=== PATIENT | male | born 1930 | race Caucasian/White ===

== ENCOUNTER 2016-10-09 12:50 | Inpatient (IN) | payer MEDICARE, OTHER ==
[2016-10-09] MEDS: Sodium Chloride 0.9% 10 ML Syringe FLUSH PRN (13:44)
--- NOTE | 2016-10-09 15:07 | EDM.PDOC ---
ED HISTORY OF PRESENT ILLNESS - General Chief Complaint: Respiratory Problem Stated Complaint: [facility] Time Seen by Provider: 10/09/16 13:00 Source of Information: Reports: Patient, EMS, RN notes reviewed - History of Present Illness INITIAL COMMENTS - FREE TEXT/NARRATIVE: 86 -year-old male brought in by ambulance for shortness of breath, generalized weakness, hypoxia, fever and diarrhea. He is a resident at [facility] and according to his son was feeling well when he last saw him 3 days ago. The symptoms apparently have just started over the past day or 2. Patient does not give a concise history but indicates that he has been having somewhat frequent watery diarrhea. [facility] staff told EMS that he had increased weakness today and when they checked his temp he had fever of around 101. He appeared short of breath sats were low and therefore ambulance was called. On arrival to ED patient is on oxygen and although noted to be tachypneic has no major complaints. He does admit that he has generalized weakness. He denies chest pain. He continues to be mildly short of breath. He states he has "occasional mostly nonproductive cough". He currently denies abdominal pain, nausea or vomiting. He denies dry mouth. No other complaints at this time. He does have history of multiple medical problems including COPD, CHF, prior pneumonia. - Related Data Allergies/ADRs: Allergies Allergy/AdvReac Type Severity Reaction Status Date / Time No Known Allergies Allergy Verified 10/09/16 13:02 Home Meds: Home Meds Acetaminophen [Tylenol] 650 mg PO BID 06/02/15 [History] Albuterol [Proventil Neb Soln] 2.5 mg NEB TID PRN 06/02/15 [History] Azasan. 100 mg PO BID 06/02/15 [History] Brimonidine [Alphagan P 0.15% Ophth Soln] 1 drop EYEBOTH BID 06/02/15 [History] Brinzolamide [Azopt] 1 drop EYEBOTH BID 06/02/15 [History] Budesonide/Formoterol [Symbicort 160-4.5 MCG] 2 puff IH BID 06/02/15 [History] Folic Acid 1 mg PO BID 06/02/15 [History] Furosemide [Lasix] 80 mg PO BID 06/02/15 [History] Insulin Detemir [Levemir Flextouch] 8 unit SQ BEDTIME 06/02/15 [History] Ipratropium/Albuterol Sulfate [Iprat-Albut 0.5-3(2.5) MG/3 ML] 3 ml IH Q8H PRN 06/02/15 [History] Levothyroxine 75 mcg PO ACBREAKFAST 06/02/15 [History] Metolazone 2.5 mg PO MOTH 06/02/15 [History] Omeprazole [Prilosec] 20 mg PO DAILY 06/02/15 [History] Potassium Chloride [Klor-Con M20] 20 meq PO TID 06/02/15 [History] Rosuvastatin Calcium [Crestor] 5 mg PO BEDTIME 06/02/15 [History] Terazosin [Hytrin] 10 mg PO BEDTIME 06/02/15 [History] Tiotropium [Spiriva HandiHaler] 2 inh INH DAILY 06/02/15 [History] Citalopram Hydrobromide [Celexa] 20 mg PO DAILY #30 tab 06/09/15 [Rx] Digoxin [Lanoxin] 125 mcg PO DAILY #30 tablet 06/09/15 [Rx] Aspirin 81 mg PO DAILY 10/09/16 [History] Donepezil [Aricept] 5 mg PO DAILY 10/09/16 [History] Metoprolol Succinate [Toprol XL] 25 mg PO DAILY 10/09/16 [History] Sennosides [Senna] 8.6 mg PO DAILY PRN 10/09/16 [History] Warfarin Sodium [Coumadin] 7.5 mg PO MOWEFR 10/09/16 [History] Warfarin [Coumadin] 5 mg PO TUTHSA 10/09/16 [History] Past Medical History HEENT History: Reports: Glaucoma Cardiovascular History: Reports: Afib, Heart Failure, High cholesterol, Hypertension Respiratory History: Reports: COPD, Pneumonia, recurrent, Other (see below) Other Respiratory History: pulmonary edema Gastrointestinal History: Reports: GERD, Other (see below) Other Gastrointestinal History: ulverative colitis, dysphagia Genitourinary History: Reports: Prostate disorder, Renal disease Other Genitourinary History: stage3 chronic kidney disease Other Musculoskeletal History: Difficulty walking with muscle weakness. Other Neuro History: possible early onset dementia vs. alzheimers Psychiatric History: Reports: Depression Other Psychiatric History: pt has anxiety at times about not returning home to live. Endocrine/Metabolic History: Reports: Diabetes, type II, Hypothyroidism - Past Surgical History GI Surgical History: Reports: Colonoscopy, EGD Social & Family History - Tobacco Use Smoking Status *Q: Former Smoker Years of Tobacco use: 30 Packs/Tins Daily: 2 Used Tobacco, but Quit: Yes Month Tobacco Last Used: 45 yers ago Second Hand Smoke Exposure: No - Caffeine Use Caffeine Use: Reports: None - Alcohol Use Days Per Week of Alcohol Use: 7 Number of Drinks Per Day: 1 Total Drinks Per Week: 7 - Recreational Drug Use Recreational Drug Use: No - Living Situation & Occupation Living situation: Reports: single, , extended care facility 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 Denies: diaphoresis HEENT: Denies: Sinus problem, Throat pain Respiratory: Reports: shortness of breath, wheezing, cough, sputum (scant) Cardiovascular: Reports: Lightheadedness. Denies: Chest pain GI/Abdominal: Reports: Diarrhea (frequent for at least the last day or 2). Denies: Abdominal pain, Nausea, Vomiting Musculoskeletal: Denies: joint pain Skin: Denies: rash, change in color Neurological: Reports: dizziness, difficulty walking, weakness (generalized). Denies: numbness, tingling, trouble speaking ED EXAM, GENERAL - Physical Exam Exam: See Below General Appearance: alert, other (mild tachypnea) Eye Exam: bilateral eye: PERRL Nose: normal inspection Throat/Mouth: Normal inspection, Normal oropharynx Head: atraumatic. No: facial swelling Neck: supple, full range of motion, other (no JVD) Respiratory/Chest: respiratory distress (moderate tachypnea), rhonchi (mild bilateral bases), wheezing (mild expiratory). No: retractions Cardiovascular: irregularly irregular GI/Abdominal: soft, non tender. No: distended, guarding Back Exam: No: CVA tenderness (L), CVA tenderness (R) Extremities: pedal edema (trace bilateral). No: leg pain, increased warmth, redness Neurological: alert, no motor/sensory deficits Skin Exam: Warm, Dry, Normal color, No rash EKG INTERPRETATION EKG Date: 10/09/16 Rhythm: a-fib Rate (beats/min): 121 P-wave: absent QRS: RBBB Course - Vital Signs Last Recorded V/S: Last Vital Signs Temp 99.1 F 10/09/16 12:59 Pulse 140 H 10/09/16 12:59 Resp 30 H 10/09/16 12:59 BP 86/46 L 10/09/16 13:00 Pulse Ox 93 L 10/09/16 15:16 - Orders/Labs/Meds Orders: Active Orders 24 hr Category Date Time Status EKG 12 Lead [EKG Documentation Completion] [RC] STAT Care 10/09/16 13:23 Active Oxygen Therapy [RC] ASDIRECTED Care 10/09/16 13:24 Active RT Aerosol Therapy [RC] ASDIRECTED Care 10/09/16 15:09 Active Chest 1V Frontal [CR] Stat Exams 10/09/16 13:23 Taken CULTURE BLOOD [BC] Stat Lab 10/09/16 13:50 Received CULTURE BLOOD [BC] Stat Lab 10/09/16 14:30 Received UA W/MICROSCOPIC [URIN] Stat Lab 10/09/16 15:07 Uncollected Sodium Chloride 0.9% [Normal Saline] 1,000 ml Med 10/09/16 15:15 Active IV ONETIME Sodium Chloride 0.9% [Saline Flush] Med 10/09/16 13:21 Active 10 ml FLUSH ASDIRECTED PRN Peripheral IV Insertion Adult [OM.PC] Stat Oth 10/09/16 13:24 Ordered Medication Orders Aspirin (Aspirin) 81 mg PO DAILY [facility] Budesonide/Formoterol Fumarate (Symbicort 160-4.5 Mcg) 0 gm INH BID [facility] Citalopram Hydrobromide (Celexa) 20 mg PO DAILY [facility] Digoxin (Lanoxin) 125 mcg PO DAILY [facility] Donepezil HCl (Aricept) 5 mg PO DAILY [facility] Sodium Chloride (Normal Saline) 1,000 mls @ 999 mls/hr IV ONETIME [facility] Last Admin: 10/09/16 15:20 Dose: 999 mls/hr Levofloxacin/Dextrose 750 mg/ (Premix) 150 mls @ 100 mls/hr IV Q48H [facility] Piperacillin Sod/Tazobactam (Sod 4.5 gm/ Sodium Chloride) 100 mls @ 25 mls/hr IV Q8H [facility] Levothyroxine Sodium (Levothyroxine) 75 mcg PO ACBREAKFAST [facility] Metoprolol Succinate (Toprol Xl) 25 mg PO DAILY [facility] Non-Formulary Medication (Brinzolamide) 1 drop EYEBOTH BID [facility] Non-Formulary Medication (Brimonidine) 1 drop EYEBOTH BID [facility] Pantoprazole Sodium (Protonix) 40 mg PO DAILY [facility] Potassium Chloride (Klor-Con M20) 20 meq PO TID [facility] Rosuvastatin Calcium (Crestor) 5 mg PO BEDTIME [facility] Senna (Senna) 8.6 mg PO DAILY PRN PRN Reason: Constipation Sodium Chloride (Saline Flush) 10 ml FLUSH ASDIRECTED PRN PRN Reason: Keep Vein Open Last Admin: 10/09/16 13:44 Dose: 10 ml Terazosin HCl (Hytrin) 10 mg PO BEDTIME [facility] Tiotropium [place] (Spiriva Handihaler) 0 mcg INH DAILY [facility] Warfarin Sodium (Coumadin) 7.5 mg PO MOWEFR [facility] Warfarin Sodium (Coumadin) 5 mg PO TuThSa@1800 [facility] Labs: Laboratory Tests 10/09/16 10/09/16 10/09/16 Range/Units 13:50 13:50 13:50 WBC 26.38 H (4.23-9.07) K/mm3 RBC 4.04 L (4.63-6.08) M/mm3 Hgb 13.5 L (13.7-17.5) gm/L Hct 40.5 (40.1-51.0) % MCV 100.2 H (79.0-92.2) fl MCH 33.4 H (25.7-32.2) pg MCHC 33.3 (32.2-35.5) g/dl RDW Std Deviation 59.5 H (35.1-43.9) fL Plt Count 180 (163-337) K/mm3 MPV 10.0 (9.4-12.3) fl Neut % (Auto) 90.6 H (34.0-67.9) % Lymph % (Auto) 3.4 L (21.8-53.1) % [place] % (Auto) 4.4 L (5.3-12.2) % Eos % (Auto) 0 L (0.8-7.0) Baso % (Auto) 0.2 (0.1-1.2) % Neut # 23.92 H (1.78-5.38) K/mm3 Lymph # 0.89 L (1.32-3.57) K/mm3 [place] # 1.15 H (0.30-0.82) K/mm3 Eos # 0.01 L (0.04-0.54) K/mm3 Baso # 0.04 (0.01-0.08) K/mm3 Manual Slide Review Abnormal smear PT (8.0-13.0) SECONDS INR Sodium 135 L (136-145) mEq/L Potassium 3.7 (3.5-5.1) mEq/L Chloride 96 L (98-107) mEq/L Carbon Dioxide 27 (21-32) mEq/L Anion Gap 15.7 H (5-15) BUN 63 H (7-18) mg/dL Creatinine 2.9 H (0.7-1.3) mg/dL Est Cr Clr Drug Dosing 18.53 mL/min Estimated GFR (MDRD) 21 (>60) mL/min BUN/Creatinine Ratio 21.7 H (14-18) Glucose 203 H (83-115) mg/dL Lactic Acid (0.4-2.0) mmol/L Calcium 8.6 (8.5-10.1) mg/dL Total Bilirubin 1.4 H (0.2-1.0) mg/dL AST 30 (15-37) U/L ALT 16 (16-63) U/L Alkaline Phosphatase 49 (46-116) U/L Troponin I (0.00-0.056) ng/mL C-Reactive Protein 35.6 H* (<1.0) mg/dL B-Natriuretic Peptide 338 H (0-100) pg/mL Total Protein 6.3 L (6.4-8.2) g/dl Albumin 2.6 L (3.4-5.0) g/dl Globulin 3.7 gm/dL Albumin/Globulin Ratio 0.7 L (1-2) 10/09/16 10/09/16 10/09/16 Range/Units 13:50 13:50 13:50 WBC (4.23-9.07) K/mm3 RBC (4.63-6.08) M/mm3 Hgb (13.7-17.5) gm/L Hct (40.1-51.0) % MCV (79.0-92.2) fl MCH (25.7-32.2) pg MCHC (32.2-35.5) g/dl RDW Std Deviation (35.1-43.9) fL Plt Count (163-337) K/mm3 MPV (9.4-12.3) fl Neut % (Auto) (34.0-67.9) % Lymph % (Auto) (21.8-53.1) % [place] % (Auto) (5.3-12.2) % Eos % (Auto) (0.8-7.0) Baso % (Auto) (0.1-1.2) % Neut # (1.78-5.38) K/mm3 Lymph # (1.32-3.57) K/mm3 [place] # (0.30-0.82) K/mm3 Eos # (0.04-0.54) K/mm3 Baso # (0.01-0.08) K/mm3 Manual Slide Review PT 32.7 H (8.0-13.0) SECONDS INR 2.98 Sodium (136-145) mEq/L Potassium (3.5-5.1) mEq/L Chloride (98-107) mEq/L Carbon Dioxide (21-32) mEq/L Anion Gap (5-15) BUN (7-18) mg/dL Creatinine (0.7-1.3) mg/dL Est Cr Clr Drug Dosing mL/min Estimated GFR (MDRD) (>60) mL/min BUN/Creatinine Ratio (14-18) Glucose (83-115) mg/dL Lactic Acid 4.5 H (0.4-2.0) mmol/L Calcium (8.5-10.1) mg/dL Total Bilirubin (0.2-1.0) mg/dL AST (15-37) U/L ALT (16-63) U/L Alkaline Phosphatase (46-116) U/L Troponin I 0.157 H* (0.00-0.056) ng/mL C-Reactive Protein (<1.0) mg/dL B-Natriuretic Peptide (0-100) pg/mL Total Protein (6.4-8.2) g/dl Albumin (3.4-5.0) g/dl Globulin gm/dL Albumin/Globulin Ratio (1-2) Meds: Medications Generic Name Dose Route Start Last Admin Trade Name Freq PRN Reason Stop Dose Admin Aspirin 81 mg 10/10/16 09:00 Aspirin PO DAILY [facility] Budesonide/Formoterol Fumarate 0 gm 10/09/16 21:00 Symbicort 160-4.5 Mcg INH BID [facility] Citalopram Hydrobromide 20 mg 10/10/16 09:00 Celexa PO DAILY [facility] Digoxin 125 mcg 10/10/16 09:00 Lanoxin PO DAILY [facility] Donepezil HCl 5 mg 10/10/16 09:00 Aricept PO DAILY [facility] Sodium Chloride 1,000 mls @ 999 mls/hr 10/09/16 15:15 10/09/16 15:20 Normal Saline IV 999 mls/hr ONETIME [facility] Administration Levofloxacin/Dextrose 750 mg/ 150 mls @ 100 mls/hr 10/11/16 15:00 Premix IV Q48H [facility] Piperacillin Sod/Tazobactam 100 mls @ 25 mls/hr 10/09/16 19:45 Sod 4.5 gm/ Sodium Chloride IV Q8H [facility] Levothyroxine Sodium 75 mcg 10/10/16 06:00 Levothyroxine PO ACBREAKFAST [facility] Metoprolol Succinate 25 mg 10/10/16 09:00 Toprol Xl PO DAILY [facility] Non-Formulary Medication 1 drop 10/09/16 21:00 Brinzolamide EYEBOTH BID [facility] Non-Formulary Medication 1 drop 10/09/16 21:00 Brimonidine EYEBOTH BID [facility] Pantoprazole Sodium 40 mg 10/10/16 09:00 Protonix PO DAILY [facility] Potassium Chloride 20 meq 10/09/16 21:00 Klor-Con M20 PO TID [facility] Rosuvastatin Calcium 5 mg 10/09/16 21:00 Crestor PO BEDTIME [facility] Senna 8.6 mg 10/09/16 19:27 Senna PO DAILY PRN Constipation Sodium Chloride 10 ml 10/09/16 13:21 10/09/16 13:44 Saline Flush FLUSH 10 ml ASDIRECTED PRN Administration Keep Vein Open Terazosin HCl 10 mg 10/09/16 21:00 Hytrin PO BEDTIME [facility] Tiotropium [place] 0 mcg 10/10/16 09:00 Spiriva Handihaler INH DAILY [facility] Warfarin Sodium 7.5 mg 10/09/16 19:30 Coumadin PO MOWEFR [facility] Warfarin Sodium 5 mg 10/10/16 18:00 Coumadin PO TuThSa@1800 [facility] Discontinued Medications Generic Name Dose Route Start Last Admin Trade Name Dior PRN Reason Stop Dose Admin Albuterol/Ipratropium 3 ml 10/09/16 15:09 10/09/16 15:15 Duoneb 3.0-0.5 Mg/3 Ml NEB 10/09/16 15:10 3 ml ONETIME ONE Administration Levofloxacin/Dextrose 750 mg/ 150 mls @ 100 mls/hr 10/09/16 15:10 10/09/16 15 :20 Premix IV 10/09/16 16:39 100 mls/hr ONETIME ONE Administration Piperacillin Sod/Tazobactam 100 mls @ 200 mls/hr 10/09/16 15:51 10/09/16 19: 29 Sod 4.5 gm/ Sodium Chloride IV 10/09/16 16:20 200 mls/hr ONETIME ONE Administration Piperacillin Sod/Tazobactam 100 mls @ 200 mls/hr 10/09/16 19:00 10/09/16 19: 31 Sod 4.5 gm/ Sodium Chloride IV 10/09/16 19:29 Not Given ONETIME ONE - Re-Assessments/Exams Free Text/Narrative Re-Assessment/Exam: 10/09/16 14:24. patient did need sepsis alert criteria on arrival. Blood cultures x2 were ordered. Blood pressure did run in the 90s initially with more recent reading of 103/52. He continues to have no chest pain. With oxygen he does not feel short of breath although he does continue to be tachypneic. I have concern for early pneumonia. he does have history of previous healthcare associated pneumonia. As noted he does come from an assisted living center. I do not see definite infiltrate on his chest x-ray. I am awaiting radiologist report on that. Blood count markedly elevated at 26,000, C-reactive protein is still pending. BUN and creatinine are elevated as well as lactic acid at 4.5. See remainder of labs for details. We have started IV Levaquin and will follow that with IV Zosyn 4.5 g IV. He will be admitted for further treatment. troponin has come back elevated at 0.15. I do not see a previous documented troponin for comparison. He continues to have no chest pain while here in the ED. His underlying history of advanced COPD and prior histories of pneumonia put him at increased risk for morbidity and mortality. He is DO NOT RESUSCITATE stat Departure - Departure Time of Disposition: 16:01 Disposition: Admitted As Inpatient 65 Condition: serious Clinical Impression: HCAP (healthcare-associated pneumonia), Hypoxia, Weakness Hypotension Qualifiers: Hypotension type: unspecified hypotension type Qualified Code(s): I95.9 - Hypotension, unspecified Atrial fibrillation Qualifiers: Atrial fibrillation type: chronic Qualified Code(s): I48.2 - Chronic atrial fibrillation ED Communication - Discussed Case With (1) Discussed Case With (1): Admitting Provider (Dr. Navarro, decision to admit at about 15:50.) - My Orders Last 24 Hours: My Active Orders 10/09/16 13:21 Sodium Chloride 0.9% [Saline Flush] 10 ml FLUSH ASDIRECTED PRN 10/09/16 13:23 EKG 12 Lead [EKG Documentation Completion] [RC] STAT Chest 1V Frontal [CR] Stat 10/09/16 13:24 Oxygen Therapy [RC] ASDIRECTED Peripheral IV Insertion Adult [OM.PC] Stat 10/09/16 13:50 CULTURE BLOOD [BC] Stat 10/09/16 14:30 CULTURE BLOOD [BC] Stat 10/09/16 15:07 UA W/MICROSCOPIC [URIN] Stat 10/09/16 15:09 RT Aerosol Therapy [RC] ASDIRECTED 10/09/16 15:15 Sodium Chloride 0.9% [Normal Saline] 1,000 ml IV ONETIME - Assessment/Plan Last 24 Hours: My Active Orders 10/09/16 13:21 Sodium Chloride 0.9% [Saline Flush] 10 ml FLUSH ASDIRECTED PRN 10/09/16 13:23 EKG 12 Lead [EKG Documentation Completion] [RC] STAT Chest 1V Frontal [CR] Stat 10/09/16 13:24 Oxygen Therapy [RC] ASDIRECTED Peripheral IV Insertion Adult [OM.PC] Stat 10/09/16 13:50 CULTURE BLOOD [BC] Stat 10/09/16 14:30 CULTURE BLOOD [BC] Stat 10/09/16 15:07 UA W/MICROSCOPIC [URIN] Stat 10/09/16 15:09 RT Aerosol Therapy [RC] ASDIRECTED 10/09/16 15:15 Sodium Chloride 0.9% [Normal Saline] 1,000 ml IV ONETIME
[2016-10-09] MEDS ORDERED: Albuterol/Ipratropium 3.0-0.5 MG/3 ML Neb Soln NEB ONE (15:09)
[2016-10-09] MEDS ORDERED: Levofloxacin/Dextrose 5%-Water 750 MG in Premix Bag 1 BAG IV ONE (15:10)
[2016-10-09] MEDS ORDERED: Sodium Chloride 0.9% 1,000 ML IV SCH (15:15)
[2016-10-09] MEDS ORDERED: Piperacillin/Tazobactam 4.5 GM in Sodium Chloride 0.9% 100 ML IV ONE ×2 (15:51→19:00)
[2016-10-09] MEDS ORDERED: Sennosides 8.6 MG Tab PO PRN (19:27)
--- NOTE | 2016-10-09 19:45 | PCM.HP ---
H&P History of Present Illness - General Date of Service: 10/09/16 Admit Problem/Dx: Admission Diagnosis/Problem Admission Diagnosis/Problem Pneumonia Source of Information: Patient, Provider History Limitations: Reports: No limitations - History of Present Illness Initial Comments - Free Text/Narative: 86 year old [place] resident presented with SOB at rest. Has a history of CHF as well as COPD. Has been febrile with a temp of 101F on the day of admission. Additionally has had frequent loose stool. The apparent timeframe for the change in well being appears to be 72 houtrs [employer]. The change in mental status with mild confusion as well as elevated temp subsequently resulted in an evaluation at [facility]. The patient has elevated WBCs, and abnormal inflamatory markers, will be admitted for CAP as well as A fib with RVR, a bed will be obtained in the ICU. Onset of Symptoms: Reports: unknown/unsure Duration of Symptoms: Reports: Day(s):, Getting worse Location: Reports: chest, generalized. Denies: lower extremity, left Severity: moderate Improves with: Reports: Medication Associated Symptoms: Reports: confusion, chest pain, cough, fever/chills, loss of appetite, malaise - Related Data Allergies/Adverse Reactions: Allergies Allergy/AdvReac Type Severity Reaction Status Date / Time No Known Allergies Allergy Verified 10/09/16 13:02 Home Medications: Home Meds Acetaminophen [Tylenol] 650 mg PO BID 06/02/15 [History] Albuterol [Proventil Neb Soln] 2.5 mg NEB TID PRN 06/02/15 [History] Brimonidine [Alphagan P 0.15% Ophth Soln] 1 drop EYEBOTH BID 06/02/15 [History] Brinzolamide [Azopt] 1 drop EYEBOTH BID 06/02/15 [History] Budesonide/Formoterol [Symbicort 160-4.5 MCG] 2 puff IH BID 06/02/15 [History] Folic Acid 1 mg PO BID 06/02/15 [History] Furosemide [Lasix] 80 mg PO BID 06/02/15 [History] Insulin Detemir [Levemir Flextouch] 8 unit SQ BEDTIME 06/02/15 [History] Levothyroxine 75 mcg PO ACBREAKFAST 06/02/15 [History] Omeprazole [Prilosec] 20 mg PO DAILY 06/02/15 [History] Potassium Chloride [Klor-Con M20] 20 meq PO TID 06/02/15 [History] Rosuvastatin Calcium [Crestor] 5 mg PO BEDTIME 06/02/15 [History] Terazosin [Hytrin] 10 mg PO BEDTIME 06/02/15 [History] Tiotropium [Spiriva HandiHaler] 2 inh INH DAILY 06/02/15 [History] Citalopram Hydrobromide [Celexa] 20 mg PO DAILY #30 tab 06/09/15 [Rx] Digoxin [Lanoxin] 125 mcg PO DAILY #30 tablet 06/09/15 [Rx] Aspirin 81 mg PO DAILY 10/09/16 [History] Donepezil [Aricept] 5 mg PO DAILY 10/09/16 [History] Metoprolol Succinate [Toprol XL] 25 mg PO DAILY 10/09/16 [History] Sennosides [Senna] 8.6 mg PO DAILY PRN 10/09/16 [History] Warfarin Sodium [Coumadin] 7.5 mg PO MOWEFR 10/09/16 [History] Warfarin [Coumadin] 5 mg PO SUTUTHSA 10/09/16 [History] Metolazone 5 mg PO MOTH 10/10/16 [History] azaTHIOprine [Azasan] 100 mg PO BID 10/10/16 [History] Past Medical History HEENT History: Reports: Glaucoma, Hard of hearing Cardiovascular History: Reports: Afib, Heart Failure, High cholesterol, Hypertension Respiratory History: Reports: COPD, Pneumonia, recurrent, SOB, Other (see below) Other Respiratory History: pulmonary edema Gastrointestinal History: Reports: GERD, Other (see below) Other Gastrointestinal History: ulverative colitis, dysphagia Genitourinary History: Reports: Chronic renal insuffiency, Prostate disorder, Renal disease, Retention, urinary, Urinary incontinence Other Genitourinary History: stage3 chronic kidney disease Musculoskeletal History: Reports: Arthritis Other Musculoskeletal History: Difficulty walking with muscle weakness. Neurological History: Reports: Alzheimers disease, Other (see below) Other Neuro History: possible early onset dementia vs. alzheimers Psychiatric History: Reports: Depression Other Psychiatric History: pt has anxiety at times about not returning home to live. Endocrine/Metabolic History: Reports: Diabetes, type II, Hypothyroidism - Past Surgical History GI Surgical History: Reports: Colonoscopy, EGD Social & Family History - Tobacco Use Smoking Status *Q: Former Smoker Years of Tobacco use: 30 Packs/Tins Daily: 2 Used Tobacco, but Quit: Yes Month Tobacco Last Used: 45 yers ago Second Hand Smoke Exposure: No - Caffeine Use Caffeine Use: Reports: Coffee - Alcohol Use Days Per Week of Alcohol Use: 7 Number of Drinks Per Day: 1 Total Drinks Per Week: 7 - Recreational Drug Use Recreational Drug Use: No - Living Situation & Occupation Living situation: Reports: single, , extended care facility 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) H&P Review of Systems - Review of Systems: Review Of Systems: See Below General: Reports: fever, chills, malaise, weakness, fatigue, decreased appetite HEENT: Reports: no symptoms Pulmonary: Reports: shortness of breath Cardiovascular: Reports: chest pain, lightheadedness Gastrointestinal: Reports: No symptoms Genitourinary: Reports: no symptoms Musculoskeletal: Reports: no symptoms Skin: Reports: no symptoms Psychiatric: Reports: no symptoms Neurological: Reports: no symptoms Hematologic/Lymphatic: Reports: no symptoms Immunologic: Reports: no symptoms Exam - Exam Exam: See Below - Vital Signs Vital Signs: Last Vital Signs Temp 37.3 C 10/09/16 12:59 Pulse 140 H 10/09/16 12:59 Resp 30 H 10/09/16 12:59 BP 86/46 L 10/09/16 13:00 Pulse Ox 93 L 10/09/16 15:16 Weight: 90.764 kg - Exam Quality Assessment: supplemental oxygen, DVT prophylaxis General: alert, oriented, cooperative, mild distress HEENT: Conjunctiva clear, EACs clear, EOMI, Mucosa moist & pink, Nares patent, Pupils equal, Pupils reactive Neck: trachea midline Lungs: Decreased breath sounds, Rhonchi, Wheezing Cardiovascular: regular rate, irregular rhythm Abdomen: normal bowel sounds, soft (Male) Exam: Deferred Rectal (Males) Exam: Deferred Back Exam: normal inspection Extremities: normal pulses Skin: warm Neurological: cranial nerves intact, normal speech Neuro Extensive - Mental Status: alert, oriented x3, normal mood/affect Neuro Extensive - Motor, Sensory, Reflexes: CN II-XII intact Psychiatric: alert, normal affect, normal mood - Patient Data Result Diagrams: 10/10/16 05:23 10/10/16 05:23 *Q Meaningful Use (ADM) - VTE *Q VTE Criteria *Q: - Stroke *Q Stroke Criteria *Q: - AMI *Q AMI Criteria *Q: Problem List Initiated/Reviewed/Updated: Yes Orders Last 24hrs: Active Orders 24 hr Category Date Time Status Bedrest Bathroom Privileges [RC] ASDIRECTED Care 10/09/16 19:37 Active Vital Signs [RC] PER UNIT ROUTINE Care 10/09/16 19:37 Active Consistent Carbohydrate Diet [DIET] Diet 10/09/16 Dinner Active CXR [Chest 2V] [CR] Routine Exams 10/11/16 21:00 Ordered BASIC METABOLIC PANEL,BMP [CHEM] DAILY Lab 10/10/16 05:00 Ordered BASIC METABOLIC PANEL,BMP [CHEM] DAILY Lab 10/11/16 05:00 Ordered BASIC METABOLIC PANEL,BMP [CHEM] DAILY Lab 10/12/16 05:00 Ordered CBC WITH AUTO DIFF [HEME] DAILY Lab 10/10/16 05:00 Ordered CBC WITH AUTO DIFF [HEME] DAILY Lab 10/11/16 05:00 Ordered CBC WITH AUTO DIFF [HEME] DAILY Lab 10/12/16 05:00 Ordered INFLUENZA A+B AG SCREEN [RM] Routine Lab 10/09/16 21:00 Uncollected MAGNESIUM [CHEM] DAILY Lab 10/10/16 05:00 Ordered MAGNESIUM [CHEM] DAILY Lab 10/11/16 05:00 Ordered MAGNESIUM [CHEM] DAILY Lab 10/12/16 05:00 Ordered MYCOPLASMA PNEUMONIAE IGM AB [CHEM] Routine Lab 10/09/16 21:00 Ordered STREP PNEUMONIAE ANTIGEN [MREF] Routine Lab 10/09/16 21:00 Uncollected Aspirin Med 10/10/16 09:00 Active 81 mg PO DAILY Brimonidine Med 10/09/16 21:00 Ordered 1 drop EYEBOTH BID Brinzolamide Med 10/09/16 21:00 Ordered 1 drop EYEBOTH BID Budesonide/Formoterol [Symbicort 160-4.5 MCG] Med 10/09/16 21:00 Active 0 gm INH BID Citalopram [Celexa] Med 10/10/16 09:00 Active 20 mg PO DAILY Digoxin [Lanoxin] Med 10/10/16 09:00 Active 125 mcg PO DAILY Donepezil Med 10/10/16 09:00 Ordered 5 mg PO DAILY Levofloxacin/Dextrose 5%-Water [Levaquin in D5W 750 MG/ Med 10/09/16 19:45 Ordered 150 ML] 750 mg Premix Bag 1 bag IV Q48H Levothyroxine Med 10/10/16 06:00 Active 75 mcg PO ACBREAKFAST Metoprolol Succinate [Toprol XL] Med 10/10/16 09:00 Active 25 mg PO DAILY Omeprazole Med 10/10/16 09:00 Ordered 20 mg PO DAILY Piperacillin/Tazobactam [Zosyn] 4.5 gm Med 10/09/16 19:45 Ordered Sodium Chloride 0.9% [Normal Saline] 100 ml IV Q8H Potassium Chloride [Klor-Con M20] Med 10/09/16 21:00 Active 20 meq PO TID Rosuvastatin [Crestor] Med 10/09/16 21:00 Active 5 mg PO BEDTIME Sennosides [Senna] Med 10/09/16 19:27 Active 8.6 mg PO DAILY PRN Terazosin [Hytrin] Med 10/09/16 21:00 Active 10 mg PO BEDTIME Tiotropium [Spiriva HandiHaler] Med 10/10/16 09:00 Ordered DOSE mcg INH DAILY Warfarin [Coumadin] Med 10/10/16 18:00 Active 5 mg PO TuThSa@1800 Warfarin [Coumadin] Med 10/09/16 19:30 Pending 7.5 mg PO MOWEFR Medication Orders Aspirin (Aspirin) 81 mg PO DAILY [facility] Budesonide/Formoterol Fumarate (Symbicort 160-4.5 Mcg) 0 gm INH BID [facility] Citalopram Hydrobromide (Celexa) 20 mg PO DAILY [facility] Digoxin (Lanoxin) 125 mcg PO DAILY [facility] Sodium Chloride (Normal Saline) 1,000 mls @ 999 mls/hr IV ONETIME [facility] Last Admin: 10/09/16 15:20 Dose: 999 mls/hr Levofloxacin/Dextrose 750 mg/ (Premix) 150 mls @ 100 mls/hr IV Q48H [facility] Piperacillin Sod/Tazobactam (Sod 4.5 gm/ Sodium Chloride) 100 mls @ 25 mls/hr IV Q8H [facility] Levothyroxine Sodium (Levothyroxine) 75 mcg PO ACBREAKFAST [facility] Metoprolol Succinate (Toprol Xl) 25 mg PO DAILY [facility] Non-Formulary Medication (Omeprazole) 20 mg PO DAILY [facility] Non-Formulary Medication (Donepezil) 5 mg PO DAILY [facility] Non-Formulary Medication (Brinzolamide) 1 drop EYEBOTH BID [facility] Non-Formulary Medication (Brimonidine) 1 drop EYEBOTH BID [facility] Potassium Chloride (Klor-Con M20) 20 meq PO TID [facility] Rosuvastatin Calcium (Crestor) 5 mg PO BEDTIME [facility] Senna (Senna) 8.6 mg PO DAILY PRN PRN Reason: Constipation Sodium Chloride (Saline Flush) 10 ml FLUSH ASDIRECTED PRN PRN Reason: Keep Vein Open Last Admin: 10/09/16 13:44 Dose: 10 ml Terazosin HCl (Hytrin) 10 mg PO BEDTIME [facility] Tiotropium [place] (Spiriva Handihaler) mcg INH DAILY [facility] Warfarin Sodium (Coumadin) 7.5 mg PO MOWEFR [facility] Warfarin Sodium (Coumadin) 5 mg PO TuThSa@1800 [facility] Assessment/Plan Comment:: Impression: CAP with history of COPD COPD exacerbation History of CHF, no signs of heart failure Afib presents with RVR, started on cardizem drip Chronic HTN Hyperlipidemia GERD BPH CKD, stage II Diabetes mellitus, type II Dementia Depression Hypothyroidism Plan: Home meds, adjust coumadin for DI Adjust rate control meds IV ATBs NEBS Keep O2 sats>92% GI/DVT prpohylaxis
[2016-10-09] MEDS: Rosuvastatin 10 MG Tab PO SCH (20:25)
[2016-10-09] MEDS: Potassium Chloride 20 MEQ Tab.ER PO SCH (20:25)
[2016-10-09] MEDS: Terazosin 5 MG Cap PO SCH (20:30)
[2016-10-09] MEDS ORDERED: BRIMONIDINE 0.15% EYEBOTH SCH (21:00)
[2016-10-09] MEDS ORDERED: Budesonide/Formoterol 160-4.5 MCG/Puff 6 GM Inhaler INH SCH (21:00)
[2016-10-09] MEDS ORDERED: [UNRECOGNIZED DRUG - REMARK] EYEBOTH SCH (21:00)
[2016-10-09] MEDS: Formoterol/Mometasone 200-5 MCG 8.8 GM Inhaler IH SCH (21:23)
[2016-10-10] MEDS: Formoterol/Mometasone 200-5 MCG 8.8 GM Inhaler IH SCH ×2 (06:09→20:42)
[2016-10-10] MEDS: Levothyroxine 75 MCG Tab PO SCH (06:30)
[2016-10-10] MEDS: Piperacillin/Tazobactam 4.5 GM in Sodium Chloride 0.9% 100 ML IV SCH ×3 (08:15→23:16)
[2016-10-10] MEDS: Sodium Chloride 0.9% 10 ML Syringe FLUSH PRN (08:15)
[2016-10-10] MEDS: Digoxin 125 MCG Tab PO SCH (08:20)
[2016-10-10] MEDS: Potassium Chloride 20 MEQ Tab.ER PO SCH ×3 (08:20→20:12)
[2016-10-10] MEDS: Pantoprazole 40 MG Tab.CR PO SCH (08:20)
[2016-10-10] MEDS: Aspirin 81 MG Tab.Chew PO SCH (08:20)
[2016-10-10] MEDS: Citalopram 20 MG Tab PO SCH (08:21)
[2016-10-10] MEDS: Donepezil 10 MG Tab PO SCH (08:21)
[2016-10-10] MEDS: OPTH EYEBOTH SCH ×2 (08:21→20:15)
[2016-10-10] MEDS: BRIMONIDINE 0.15% EYEBOTH SCH ×2 (08:21→20:15)
[2016-10-10] MEDS: BRINZOLAMIDE EYEBOTH SCH ×2 (08:21→20:16)
[2016-10-10] MEDS: Tiotropium Inhaler 18 MCG Inhalation Powder Cap Kit of 5 INH SCH (08:58)
[2016-10-10] MEDS ORDERED: Metoprolol Succinate 25 MG Tab.ER PO SCH (09:00)
[2016-10-10] MEDS: guaiFENesin 600 MG Tab.ER PO SCH ×3 (10:13→20:12)
[2016-10-10] MEDS: Magnesium Oxide 400 MG Tab PO SCH (10:13)
[2016-10-10] MEDS ORDERED: Metoprolol Tartrate 5 MG/5 ML SDV IVPUSH PRN (13:39)
[2016-10-10] MEDS: Levalbuterol HCl 1.25 MG/3 ML Neb NEB SCH ×3 (14:00→20:46)
--- NOTE | 2016-10-10 19:57 | PCM.PN ---
- General Info Date of Service: 10/10/16 Functional Status: Reports: tolerating diet, ambulating, urinating - Review of Systems General: Reports: weakness, fatigue HEENT: Reports: no symptoms Pulmonary: Reports: shortness of breath Cardiovascular: Reports: palpitations Gastrointestinal: Reports: No symptoms Genitourinary: Reports: no symptoms Musculoskeletal: Reports: no symptoms Skin: Reports: no symptoms Neurological: Reports: no symptoms Psychiatric: Reports: no symptoms - Patient Data Vitals - most recent: Last Vital Signs Temp 36.9 C 10/10/16 15:42 Pulse 124 H 10/10/16 09:02 Resp 20 10/10/16 15:42 BP 108/72 10/10/16 15:42 Pulse Ox 94 L 10/10/16 17:46 Weight - most recent: 91.127 kg I&O - last 24 hours: Intake & Output 10/10/16 10/10/16 10/10/16 06:59 14:59 22:59 Intake Total 100 1145 560 Balance 100 1145 560 Lab Results last 24 hrs: Laboratory Results - last 24 hr 10/09/16 10/10/16 10/10/16 Range/Units 20:46 05:23 05:23 WBC 19.13 H (4.23-9.07) K/mm3 RBC 3.91 L (4.63-6.08) M/mm3 Hgb 13.1 L (13.7-17.5) gm/L Hct 39.3 L (40.1-51.0) % MCV 100.5 H (79.0-92.2) fl MCH 33.5 H (25.7-32.2) pg MCHC 33.3 (32.2-35.5) g/dl RDW Std Deviation 59.3 H (35.1-43.9) fL Plt Count 159 L (163-337) K/mm3 MPV 10.2 (9.4-12.3) fl Neut % (Auto) 89.2 H (34.0-67.9) % Lymph % (Auto) 4.3 L (21.8-53.1) % [place] % (Auto) 5.8 (5.3-12.2) % Eos % (Auto) 0.1 L (0.8-7.0) Baso % (Auto) 0.1 (0.1-1.2) % Neut # 17.06 H (1.78-5.38) K/mm3 Lymph # 0.82 L (1.32-3.57) K/mm3 [place] # 1.11 H (0.30-0.82) K/mm3 Eos # 0.02 L (0.04-0.54) K/mm3 Baso # 0.02 (0.01-0.08) K/mm3 Manual Slide Review Abnormal smear PT (8.0-13.0) SECONDS INR Sodium 138 (136-145) mEq/L Potassium 3.2 L (3.5-5.1) mEq/L Chloride 99 (98-107) mEq/L Carbon Dioxide 28 (21-32) mEq/L Anion Gap 14.2 (5-15) BUN 57 H (7-18) mg/dL Creatinine 2.5 H (0.7-1.3) mg/dL Est Cr Clr Drug Dosing 21.49 mL/min Estimated GFR (MDRD) 25 (>60) mL/min BUN/Creatinine Ratio 22.8 H (14-18) Glucose 129 H (83-115) mg/dL Calcium 8.4 L (8.5-10.1) mg/dL Magnesium 1.8 (1.8-2.4) mg/dl C-Reactive Protein (<1.0) mg/dL Urine Color Yellow (Yellow) Urine Appearance Clear (Clear) Urine pH 7.0 (5.0-8.0) Ur Specific [place] 1.020 (1.005-1.030) Urine Protein Negative (Negative) Urine Glucose (UA) Negative (Negative) Urine Ketones Negative (Negative) Urine Occult Blood Negative (Negative) Urine Nitrite Negative (Negative) Urine Bilirubin Negative (Negative) Urine Urobilinogen 1.0 (0.2-1.0) Ur Leukocyte Esterase Negative (Negative) Urine RBC 0-5 (0-5) /hpf Urine WBC 0-5 (0-5) /hpf Ur Epithelial Cells 0-5 (0-5) /hpf Urine Bacteria Not seen (FEW) /hpf Urine Mucus Not seen (FEW) /hpf Digoxin (0.9-2.0) ng/mL 10/10/16 10/10/16 10/10/16 Range/Units 05:23 05:23 05:32 WBC (4.23-9.07) K/mm3 RBC (4.63-6.08) M/mm3 Hgb (13.7-17.5) gm/L Hct (40.1-51.0) % MCV (79.0-92.2) fl MCH (25.7-32.2) pg MCHC (32.2-35.5) g/dl RDW Std Deviation (35.1-43.9) fL Plt Count (163-337) K/mm3 MPV (9.4-12.3) fl Neut % (Auto) (34.0-67.9) % Lymph % (Auto) (21.8-53.1) % [place] % (Auto) (5.3-12.2) % Eos % (Auto) (0.8-7.0) Baso % (Auto) (0.1-1.2) % Neut # (1.78-5.38) K/mm3 Lymph # (1.32-3.57) K/mm3 [place] # (0.30-0.82) K/mm3 Eos # (0.04-0.54) K/mm3 Baso # (0.01-0.08) K/mm3 Manual Slide Review PT 36.2 H (8.0-13.0) SECONDS INR 3.29 Sodium (136-145) mEq/L Potassium (3.5-5.1) mEq/L Chloride (98-107) mEq/L Carbon Dioxide (21-32) mEq/L Anion Gap (5-15) BUN (7-18) mg/dL Creatinine (0.7-1.3) mg/dL Est Cr Clr Drug Dosing mL/min Estimated GFR (MDRD) (>60) mL/min BUN/Creatinine Ratio (14-18) Glucose (83-115) mg/dL Calcium (8.5-10.1) mg/dL Magnesium (1.8-2.4) mg/dl C-Reactive Protein 38.0 H* (<1.0) mg/dL Urine Color (Yellow) Urine Appearance (Clear) Urine pH (5.0-8.0) Ur Specific [place] (1.005-1.030) Urine Protein (Negative) Urine Glucose (UA) (Negative) Urine Ketones (Negative) Urine Occult Blood (Negative) Urine Nitrite (Negative) Urine Bilirubin (Negative) Urine Urobilinogen (0.2-1.0) Ur Leukocyte Esterase (Negative) Urine RBC (0-5) /hpf Urine WBC (0-5) /hpf Ur Epithelial Cells (0-5) /hpf Urine Bacteria (FEW) /hpf Urine Mucus (FEW) /hpf Digoxin 1.2 (0.9-2.0) ng/mL [place] Results last 24 hrs: Microbiology 10/09/16 20:46 Influenza Type A Antigen Screen - Final Nasopharyngeal Swab - Nare, Right NEGATIVE INFLUENZA A VIRUS AG Influenza Type B Antigen Screen - Final NEGATIVE INFLUENZA B VIRUS AG Med Orders - Current: Current Medications Aspirin (Aspirin) 81 mg PO DAILY [facility] Last Admin: 10/10/16 08:20 Dose: 81 mg Citalopram Hydrobromide (Celexa) 20 mg PO DAILY [facility] Last Admin: 10/10/16 08:21 Dose: 20 mg Digoxin (Lanoxin) 125 mcg PO DAILY [facility] Last Admin: 10/10/16 08:20 Dose: 125 mcg Donepezil HCl (Aricept) 5 mg PO DAILY [facility] Last Admin: 10/10/16 08:21 Dose: 5 mg Guaifenesin (Mucinex) 600 mg PO TID [facility] Last Admin: 10/10/16 15:11 Dose: 600 mg Sodium Chloride (Normal Saline) 1,000 mls @ 999 mls/hr IV ONETIME [facility] Last Admin: 10/09/16 15:20 Dose: 999 mls/hr Levofloxacin/Dextrose 750 mg/ (Premix) 150 mls @ 100 mls/hr IV Q48H [facility] Piperacillin Sod/Tazobactam (Sod 4.5 gm/ Sodium Chloride) 100 mls @ 25 mls/hr IV Q8H [facility] Last Admin: 10/10/16 15:47 Dose: 25 mls/hr Levalbuterol HCl (Xopenex) 1.25 mg NEB Q4H [facility] Last Admin: 10/10/16 17:46 Dose: 1.25 mg Levothyroxine Sodium (Levothyroxine) 75 mcg PO ACBREAKFAST [facility] Last Admin: 10/10/16 06:30 Dose: 75 mcg Magnesium Oxide (Magnesium Oxide) 400 mg PO DAILY [facility] Last Admin: 10/10/16 10:13 Dose: 400 mg Metoprolol Tartrate (Lopressor) 50 mg PO Q12HR [facility] Metoprolol Tartrate (Lopressor) 5 mg IVPUSH Q6H PRN PRN Reason: HR>120 Mometasone Furoate/Formoterol Fumar (Dulera 200-5 Mcg) 2 puff IH BIDRT [facility] Last Admin: 10/10/16 06:09 Dose: 2 puff Pantoprazole Sodium (Protonix) 40 mg PO DAILY [facility] Last Admin: 10/10/16 08:20 Dose: 40 mg Brimonidine ( Alphagan P) 0.15% Opth Soln 0 each EYEBOTH BID [facility] Last Admin: 10/10/16 08:21 Dose: Not Given Brinzolamide (Azopt) Ophthalmic Suspension 0 each EYEBOTH BID [facility] Last Admin: 10/10/16 08:21 Dose: Not Given Potassium Chloride (Klor-Con M20) 20 meq PO TID [facility] Last Admin: 10/10/16 15:12 Dose: 20 meq Rosuvastatin Calcium (Crestor) 5 mg PO BEDTIME [facility] Last Admin: 10/09/16 20:25 Dose: 5 mg Senna (Senna) 8.6 mg PO DAILY PRN PRN Reason: Constipation Sodium Chloride (Saline Flush) 10 ml FLUSH ASDIRECTED PRN PRN Reason: Keep Vein Open Last Admin: 10/10/16 08:15 Dose: 10 ml Terazosin HCl (Hytrin) 10 mg PO BEDTIME [facility] Last Admin: 10/09/16 20:30 Dose: Not Given Tiotropium [place] (Spiriva Handihaler) 0 mcg INH DAILY [facility] Last Admin: 10/10/16 08:58 Dose: 1 puff Warfarin Sodium (Coumadin) 7.5 mg PO MoWeFr@1800 [facility] Warfarin Sodium (Coumadin) 5 mg PO SuTuThSa@1800 [facility] Discontinued Medications Albuterol/Ipratropium (Duoneb 3.0-0.5 Mg/3 Ml) 3 ml NEB ONETIME ONE Stop: 10/09/16 15:10 Last Admin: 10/09/16 15:15 Dose: 3 ml Budesonide/Formoterol Fumarate (Symbicort 160-4.5 Mcg) 0 gm INH BID [facility] Levofloxacin/Dextrose 750 mg/ (Premix) 150 mls @ 100 mls/hr IV ONETIME ONE Stop: 10/09/16 16:39 Last Admin: 10/09/16 15:20 Dose: 100 mls/hr Piperacillin Sod/Tazobactam (Sod 4.5 gm/ Sodium Chloride) 100 mls @ 200 mls/hr IV ONETIME ONE Stop: 10/09/16 16:20 Last Admin: 10/09/16 19:29 Dose: 200 mls/hr Piperacillin Sod/Tazobactam (Sod 4.5 gm/ Sodium Chloride) 100 mls @ 200 mls/hr IV ONETIME ONE Stop: 10/09/16 19:29 Last Admin: 10/09/16 19:31 Dose: Not Given Metoprolol Succinate (Toprol Xl) 25 mg PO DAILY [facility] Last Admin: 10/10/16 08:21 Dose: 25 mg Brinzolamide 1 Drop* (*Non-Form) 1 drop EYEBOTH BID [facility] Last Admin: 10/10/16 00:34 Dose: Not Given Brimonidine ( Alphagan P) 0.15% Opth SolnNonform 1 drop EYEBOTH BID [facility] Last Admin: 10/10/16 00:34 Dose: Not Given - Exam Quality Assessment: supplemental oxygen, DVT prophylaxis General: alert, oriented, cooperative, no acute distress HEENT: Pupils equal, Pupils reactive, EOMI Neck: supple, trachea midline Lungs: Normal respiratory effort, Decreased breath sounds, Wheezing Cardiovascular: regular rate, irregular rhythm, tachycardia Abdomen: bowel sounds present, soft, no tenderness, no distension (Male) Exam: Deferred Back Exam: normal inspection Extremities: normal pulses Skin: warm Neurological: normal speech Psy/Mental Status: alert, normal affect, normal mood - Problem List Review Problem List Initiated/Reviewed/Updated: Yes - My Orders Last 24 Hours: My Active Orders 10/09/16 19:27 Sennosides [Senna] 8.6 mg PO DAILY PRN 10/09/16 19:37 Vital Signs [RC] Q4HR 10/09/16 20:46 STREP PNEUMONIAE ANTIGEN [MREF] Routine 10/09/16 21:00 Mometasone/Formoterol [Dulera 200-5 MCG] 2 puff IH BIDRT Potassium Chloride [Klor-Con M20] 20 meq PO TID Rosuvastatin [Crestor] 5 mg PO BEDTIME Terazosin [Hytrin] 10 mg PO BEDTIME 03/02/17 00:52 Resuscitation Status Routine 10/10/16 06:00 Levothyroxine 75 mcg PO ACBREAKFAST 10/10/16 07:25 Patient's Own Medication [Ptom] 0 each EYEBOTH BID 10/10/16 07:33 Patient's Own Medication [Ptom] 0 each EYEBOTH BID 10/10/16 08:00 Piperacillin/Tazobactam [Zosyn] 4.5 gm Sodium Chloride 0.9% [Normal Saline] 100 ml IV Q8H 10/10/16 09:00 Aspirin 81 mg PO DAILY Citalopram [Celexa] 20 mg PO DAILY Digoxin [Lanoxin] 125 mcg PO DAILY Donepezil [Aricept] 5 mg PO DAILY Pantoprazole [Protonix] 40 mg PO DAILY Tiotropium [Spiriva HandiHaler] 0 mcg INH DAILY 10/10/16 09:47 Consult to Occupational Therapy [OT Evaluation and Treatment] [CONS] Routine Consult to Physical Therapy [PT Evaluation and Treatment] [CONS] Routine 10/10/16 10:02 Up With Assistance [RC] ASDIRECTED 10/10/16 13:39 Metoprolol Tartrate [Lopressor] 5 mg IVPUSH Q6H PRN 10/10/16 20:00 methylPREDNISolone Sod Succ [Solu-MEDROL] 40 mg IVPUSH Q12H 10/10/16 21:00 Metoprolol Tartrate [Lopressor] 50 mg PO Q12HR 10/10/16 Lunch 2 Gram Sodium Diet [DIET] 10/11/16 05:00 BASIC METABOLIC PANEL,BMP [CHEM] DAILY CBC WITH AUTO DIFF [HEME] DAILY MAGNESIUM [CHEM] DAILY 10/11/16 09:00 CXR [Chest 2V] [CR] Routine 10/11/16 15:00 Levofloxacin/Dextrose 5%-Water [Levaquin in D5W 750 MG/150 ML] 750 mg Premix Bag 1 bag IV Q48H 10/11/16 21:00 CXR [Chest 2V] [CR] Routine 10/12/16 05:00 BASIC METABOLIC PANEL,BMP [CHEM] DAILY CBC WITH AUTO DIFF [HEME] DAILY MAGNESIUM [CHEM] DAILY 10/12/16 18:00 Warfarin [Coumadin] 5 mg PO SuTuThSa@1800 10/14/16 18:00 Warfarin [Coumadin] 7.5 mg PO MoWeFr@1800 - Plan Plan:: Impression: HCAP Mycoplasma, negative AFib with RVR COPD exacerbation Chronic CHF Hyperlipidemia GERD CKD, stage III Dementia Diabetes mellitus type II Hypothyroid Plan: Continue ICU Continue Zosyn, renal dose Levoquin Keep O2 Sat>92% Start Solumedrol low dose, 40 mg Q 12 H Change to Xopenex to avoid elevated HR Increase BB IV Lopressor PRN for HR>120 Hold Coumadin, avoid DI
[2016-10-10] MEDS: Metoprolol Tartrate 50 MG Tab PO SCH (20:12)
[2016-10-10] MEDS: Terazosin 5 MG Cap PO SCH (20:12)
[2016-10-10] MEDS: Rosuvastatin 10 MG Tab PO SCH (20:13)
[2016-10-10] MEDS: methylPREDNISolone Sodium Succinate 40 MG/1 ML SDV IVPUSH SCH (20:15)
[2016-10-11] MEDS: Levalbuterol HCl 1.25 MG/3 ML Neb NEB SCH ×5 (02:25→20:53)
[2016-10-11] MEDS: Levothyroxine 75 MCG Tab PO SCH (05:48)
[2016-10-11] MEDS: Formoterol/Mometasone 200-5 MCG 8.8 GM Inhaler IH SCH ×2 (06:17→20:52)
[2016-10-11] MEDS: Piperacillin/Tazobactam 4.5 GM in Sodium Chloride 0.9% 100 ML IV SCH ×3 (08:34→18:11)
[2016-10-11] MEDS: methylPREDNISolone Sodium Succinate 40 MG/1 ML SDV IVPUSH SCH ×2 (08:34→20:15)
[2016-10-11] MEDS: Donepezil 10 MG Tab PO SCH (08:36)
[2016-10-11] MEDS: Potassium Chloride 20 MEQ Tab.ER PO SCH ×3 (08:36→20:15)
[2016-10-11] MEDS: Metoprolol Tartrate 50 MG Tab PO SCH ×2 (08:36→20:14)
[2016-10-11] MEDS: Magnesium Oxide 400 MG Tab PO SCH (08:36)
[2016-10-11] MEDS: Citalopram 20 MG Tab PO SCH (08:36)
[2016-10-11] MEDS: Aspirin 81 MG Tab.Chew PO SCH (08:37)
[2016-10-11] MEDS: Digoxin 125 MCG Tab PO SCH (08:37)
[2016-10-11] MEDS: guaiFENesin 600 MG Tab.ER PO SCH ×3 (08:37→20:14)
[2016-10-11] MEDS: Pantoprazole 40 MG Tab.CR PO SCH (08:38)
--- NOTE | 2016-10-11 09:15 | CR ---
Chest: Portable view of the chest was obtained. Comparison: Previous chest x-ray of 06/02/15. Heart is enlarged. Left retrocardiac region not well seen. Lungs otherwise are clear. Impression: 1. Cardiomegaly. Nothing acute is definitely appreciated. Diagnostic code #2
[2016-10-11] MEDS: BRIMONIDINE 0.15% EYEBOTH SCH ×2 (09:24→20:16)
[2016-10-11] MEDS: BRINZOLAMIDE EYEBOTH SCH ×2 (09:24→20:16)
[2016-10-11] MEDS: OPTH EYEBOTH SCH ×2 (09:24→20:16)
--- NOTE | 2016-10-11 09:41 | CR ---
Chest: Two views of the chest are obtained. Comparison: Previous portable chest x-ray of 10/09/16. Mild increased density seen within the left lung base most likely due to atelectasis. Lung markings are slightly increased which remains stable. Heart is mildly enlarged. Degenerative spurring is noted within the spine. Mild compression deformity is seen at the thoracolumbar junction which appears old. Impression: 1. Findings as described above. Nothing acute is definitely appreciated. Diagnostic code #2
[2016-10-11] MEDS: Tiotropium Inhaler 18 MCG Inhalation Powder Cap Kit of 5 INH SCH (10:39)
[2016-10-11] MEDS: Levofloxacin/Dextrose 5%-Water 750 MG in Premix Bag 1 BAG IV SCH (16:43)
[2016-10-11] MEDS ORDERED: Levalbuterol HCl 1.25 MG/3 ML Neb NEB SCH (18:00)
[2016-10-11] MEDS: Terazosin 5 MG Cap PO SCH (20:13)
[2016-10-11] MEDS: Rosuvastatin 10 MG Tab PO SCH (20:14)
--- NOTE | 2016-10-11 20:18 | PCM.PN ---
- General Info Date of Service: 10/11/16 Functional Status: Reports: tolerating diet, ambulating, urinating - Review of Systems General: Reports: weakness HEENT: Reports: no symptoms Pulmonary: Reports: shortness of breath Cardiovascular: Reports: no symptoms Gastrointestinal: Reports: No symptoms Genitourinary: Reports: no symptoms Musculoskeletal: Reports: no symptoms Skin: Reports: no symptoms Neurological: Reports: no symptoms Psychiatric: Reports: confusion - Patient Data Vitals - most recent: Last Vital Signs Temp 36.1 C 10/11/16 14:53 Pulse 75 10/11/16 20:14 Resp 20 10/11/16 14:53 BP 135/80 10/11/16 20:14 Pulse Ox 94 L 10/11/16 14:53 Weight - most recent: 90.764 kg I&O - last 24 hours: Intake & Output 10/11/16 10/11/16 10/11/16 06:59 14:59 22:59 Intake Total 990 520 340 Balance 990 520 340 Lab Results last 24 hrs: Laboratory Results - last 24 hr 10/11/16 10/11/16 10/11/16 Range/Units 04:36 04:36 04:36 WBC 5.98 (4.23-9.07) K/mm3 RBC 3.87 L (4.63-6.08) M/mm3 Hgb 12.8 L (13.7-17.5) gm/L Hct 38.3 L (40.1-51.0) % MCV 99.0 H (79.0-92.2) fl MCH 33.1 H (25.7-32.2) pg MCHC 33.4 (32.2-35.5) g/dl RDW Std Deviation 59.2 H (35.1-43.9) fL Plt Count 165 (163-337) K/mm3 MPV 10.6 (9.4-12.3) fl Neut % (Auto) 91.1 H (34.0-67.9) % Lymph % (Auto) 6.0 L (21.8-53.1) % Roosevelt % (Auto) 2.7 L (5.3-12.2) % Eos % (Auto) 0 L (0.8-7.0) Baso % (Auto) 0.0 L (0.1-1.2) % Neut # 5.45 H (1.78-5.38) K/mm3 Lymph # 0.36 L (1.32-3.57) K/mm3 Roosevelt # 0.16 L (0.30-0.82) K/mm3 Eos # 0.00 L (0.04-0.54) K/mm3 Baso # 0.00 L (0.01-0.08) K/mm3 Manual Slide Review Abnormal smear PT 31.5 H (8.0-13.0) SECONDS INR 2.71 Sodium 138 (136-145) mEq/L Potassium 3.7 (3.5-5.1) mEq/L Chloride 99 (98-107) mEq/L Carbon Dioxide 26 (21-32) mEq/L Anion Gap 16.7 H (5-15) BUN 69 H (7-18) mg/dL Creatinine 2.5 H (0.7-1.3) mg/dL Est Cr Clr Drug Dosing 22.17 mL/min Estimated GFR (MDRD) 25 (>60) mL/min BUN/Creatinine Ratio 27.6 H (14-18) Glucose 243 H (83-115) mg/dL Calcium 8.5 (8.5-10.1) mg/dL Magnesium 2.3 (1.8-2.4) mg/dl Erwin Results last 24 hrs: Microbiology 10/09/16 20:46 Streptococcus pneumoniae Antigen (M - Final Urine Med Orders - Current: Current Medications Aspirin (Aspirin) 81 mg PO DAILY [facility] Last Admin: 10/11/16 08:37 Dose: 81 mg Citalopram Hydrobromide (Celexa) 20 mg PO DAILY [facility] Last Admin: 10/11/16 08:36 Dose: 20 mg Digoxin (Lanoxin) 125 mcg PO DAILY [facility] Last Admin: 10/11/16 08:37 Dose: 125 mcg Donepezil HCl (Aricept) 5 mg PO DAILY [facility] Last Admin: 10/11/16 08:36 Dose: 5 mg Guaifenesin (Mucinex) 600 mg PO TID [facility] Last Admin: 10/11/16 20:14 Dose: 600 mg Sodium Chloride (Normal Saline) 1,000 mls @ 999 mls/hr IV ONETIME [facility] Last Admin: 10/09/16 15:20 Dose: 999 mls/hr Levofloxacin/Dextrose 750 mg/ (Premix) 150 mls @ 100 mls/hr IV Q48H [facility] Last Admin: 10/11/16 16:43 Dose: 100 mls/hr Piperacillin Sod/Tazobactam (Sod 4.5 gm/ Sodium Chloride) 100 mls @ 25 mls/hr IV Q8H [facility] Last Admin: 10/11/16 18:11 Dose: 25 mls/hr Levalbuterol HCl (Xopenex) 1.25 mg NEB QID [facility] Levothyroxine Sodium (Levothyroxine) 75 mcg PO ACBREAKFAST [facility] Last Admin: 10/11/16 05:48 Dose: 75 mcg Magnesium Oxide (Magnesium Oxide) 400 mg PO DAILY [facility] Last Admin: 10/11/16 08:36 Dose: 400 mg Methylprednisolone Sodium Succinate (Solu-Medrol) 40 mg IVPUSH Q12H [facility] Last Admin: 10/11/16 20:15 Dose: 40 mg Metoprolol Tartrate (Lopressor) 50 mg PO Q12HR [facility] Last Admin: 10/11/16 20:14 Dose: 50 mg Metoprolol Tartrate (Lopressor) 5 mg IVPUSH Q6H PRN PRN Reason: HR>120 Mometasone Furoate/Formoterol Fumar (Dulera 200-5 Mcg) 2 puff IH BIDRT [facility] Last Admin: 10/11/16 06:17 Dose: 2 puff Pantoprazole Sodium (Protonix) 40 mg PO DAILY [facility] Last Admin: 10/11/16 08:38 Dose: 40 mg Brimonidine ( Alphagan P) 0.15% Opth Soln 0 each EYEBOTH BID [facility] Last Admin: 10/11/16 20:16 Dose: 1 each Brinzolamide (Azopt) Ophthalmic Suspension 0 each EYEBOTH BID [facility] Last Admin: 10/11/16 20:16 Dose: 1 each Potassium Chloride (Klor-Con M20) 20 meq PO TID [facility] Last Admin: 10/11/16 20:15 Dose: 20 meq Rosuvastatin Calcium (Crestor) 5 mg PO BEDTIME [facility] Last Admin: 10/11/16 20:14 Dose: 5 mg Senna (Senna) 8.6 mg PO DAILY PRN PRN Reason: Constipation Sodium Chloride (Saline Flush) 10 ml FLUSH ASDIRECTED PRN PRN Reason: Keep Vein Open Last Admin: 10/10/16 08:15 Dose: 10 ml Terazosin HCl (Hytrin) 10 mg PO BEDTIME [facility] Last Admin: 10/11/16 20:13 Dose: 10 mg Tiotropium [place] (Spiriva Handihaler) 0 mcg INH DAILY [facility] Last Admin: 10/11/16 10:39 Dose: 1 puff Warfarin Sodium (Coumadin) 7.5 mg PO MoWeFr@1800 [facility] Warfarin Sodium (Coumadin) 5 mg PO SuTuThSa@1800 [facility] Discontinued Medications Albuterol/Ipratropium (Duoneb 3.0-0.5 Mg/3 Ml) 3 ml NEB ONETIME ONE Stop: 10/09/16 15:10 Last Admin: 10/09/16 15:15 Dose: 3 ml Budesonide/Formoterol Fumarate (Symbicort 160-4.5 Mcg) 0 gm INH BID [facility] Levofloxacin/Dextrose 750 mg/ (Premix) 150 mls @ 100 mls/hr IV ONETIME ONE Stop: 10/09/16 16:39 Last Admin: 10/09/16 15:20 Dose: 100 mls/hr Piperacillin Sod/Tazobactam (Sod 4.5 gm/ Sodium Chloride) 100 mls @ 200 mls/hr IV ONETIME ONE Stop: 10/09/16 16:20 Last Admin: 10/09/16 19:29 Dose: 200 mls/hr Piperacillin Sod/Tazobactam (Sod 4.5 gm/ Sodium Chloride) 100 mls @ 200 mls/hr IV ONETIME ONE Stop: 10/09/16 19:29 Last Admin: 10/09/16 19:31 Dose: Not Given Levalbuterol HCl (Xopenex) 1.25 mg NEB Q4H [facility] Last Admin: 10/11/16 13:48 Dose: 1.25 mg Levalbuterol HCl (Xopenex) 1.25 mg NEB Q6HRRT [facility] Metoprolol Succinate (Toprol Xl) 25 mg PO DAILY [facility] Last Admin: 10/10/16 08:21 Dose: 25 mg Brinzolamide 1 Drop* (*Non-Form) 1 drop EYEBOTH BID [facility] Last Admin: 10/10/16 00:34 Dose: Not Given Brimonidine ( Alphagan P) 0.15% Opth SolnNonform 1 drop EYEBOTH BID [facility] Last Admin: 10/10/16 00:34 Dose: Not Given - Exam Quality Assessment: supplemental oxygen, DVT prophylaxis General: alert, oriented, cooperative HEENT: Pupils equal, Pupils reactive, EOMI Neck: trachea midline Lungs: Normal respiratory effort, Decreased breath sounds, Wheezing (left) Cardiovascular: regular rate, irregular rhythm Abdomen: bowel sounds present, soft, no tenderness, no distension (Male) Exam: Deferred Back Exam: normal inspection Extremities: normal pulses Skin: warm Neurological: normal speech Psy/Mental Status: alert - Problem List Review Problem List Initiated/Reviewed/Updated: Yes - My Orders Last 24 Hours: My Active Orders 10/10/16 20:00 methylPREDNISolone Sod Succ [Solu-MEDROL] 40 mg IVPUSH Q12H 10/10/16 21:00 Metoprolol Tartrate [Lopressor] 50 mg PO Q12HR 10/11/16 10:39 Patient Status [ADT] Routine 10/11/16 15:00 Levofloxacin/Dextrose 5%-Water [Levaquin in D5W 750 MG/150 ML] 750 mg Premix Bag 1 bag IV Q48H 10/11/16 17:28 RT Aerosol Therapy [RC] ASDIRECTED 10/11/16 21:00 Levalbuterol HCl [Xopenex] 1.25 mg NEB QID 10/12/16 05:00 BASIC METABOLIC PANEL,BMP [CHEM] DAILY CBC WITH AUTO DIFF [HEME] DAILY MAGNESIUM [CHEM] DAILY 10/12/16 06:00 INR,PT,PROTHROMBIN TIME [COAG] DAILY 10/12/16 18:00 Warfarin [Coumadin] 5 mg PO SuTuThSa@1800 10/13/16 06:00 INR,PT,PROTHROMBIN TIME [COAG] DAILY 10/14/16 06:00 INR,PT,PROTHROMBIN TIME [COAG] DAILY 10/14/16 18:00 Warfarin [Coumadin] 7.5 mg PO MoWeFr@1800 - Plan Plan:: Impression: CAP with history of COPD; strep pneumo COPD exacerbation History of CHF, no signs of heart failure Afib presents with RVR, started on cardizem drip Chronic HTN Hyperlipidemia GERD BPH CKD, stage II Diabetes mellitus, type II Dementia Depression Hypothyroidism Plan: Home meds, adjust coumadin for DI Adjust rate control meds IV ATBs NEBS Keep O2 sats>92% GI/DVT prpohylaxis
[2016-10-12] MEDS: Piperacillin/Tazobactam 4.5 GM in Sodium Chloride 0.9% 100 ML IV SCH ×3 (00:06→16:00)
[2016-10-12] MEDS: Levothyroxine 75 MCG Tab PO SCH (05:35)
[2016-10-12] MEDS: Formoterol/Mometasone 200-5 MCG 8.8 GM Inhaler IH SCH ×2 (06:24→21:11)
[2016-10-12] MEDS: Sodium Chloride 0.9% 10 ML Syringe FLUSH PRN (08:03)
[2016-10-12] MEDS: methylPREDNISolone Sodium Succinate 40 MG/1 ML SDV IVPUSH SCH (08:07)
[2016-10-12] MEDS: Potassium Chloride 20 MEQ Tab.ER PO SCH ×3 (08:08→20:27)
[2016-10-12] MEDS: Metoprolol Tartrate 50 MG Tab PO SCH ×2 (08:08→20:27)
[2016-10-12] MEDS: Citalopram 20 MG Tab PO SCH (08:09)
[2016-10-12] MEDS: Pantoprazole 40 MG Tab.CR PO SCH (08:09)
[2016-10-12] MEDS: guaiFENesin 600 MG Tab.ER PO SCH ×3 (08:09→20:27)
[2016-10-12] MEDS: Magnesium Oxide 400 MG Tab PO SCH (08:09)
[2016-10-12] MEDS: Donepezil 10 MG Tab PO SCH (08:09)
[2016-10-12] MEDS: Aspirin 81 MG Tab.Chew PO SCH (08:09)
[2016-10-12] MEDS: Digoxin 125 MCG Tab PO SCH (08:09)
[2016-10-12] MEDS: BRIMONIDINE 0.15% EYEBOTH SCH ×2 (08:15→20:28)
[2016-10-12] MEDS: BRINZOLAMIDE EYEBOTH SCH ×2 (08:15→20:28)
[2016-10-12] MEDS: OPTH EYEBOTH SCH ×2 (08:15→20:28)
[2016-10-12] MEDS: Levalbuterol HCl 1.25 MG/3 ML Neb NEB SCH ×4 (08:23→21:11)
[2016-10-12] MEDS: Tiotropium Inhaler 18 MCG Inhalation Powder Cap Kit of 5 INH SCH (08:23)
[2016-10-12] MEDS ORDERED: LORazepam 2 MG/ML MDV IVPUSH ONE (10:36)
[2016-10-12] MEDS ORDERED: LORazepam 2 MG/ML MDV ONE (10:39)
--- NOTE | 2016-10-12 17:32 | PCM.PN ---
- General Info Date of Service: 10/12/16 (LOS>96 HOURS IMPENDING) Functional Status: Reports: tolerating diet, ambulating, urinating, other ( confused) - Review of Systems General: Reports: no symptoms HEENT: Reports: no symptoms Pulmonary: Reports: no symptoms Cardiovascular: Reports: no symptoms Gastrointestinal: Reports: No symptoms Genitourinary: Reports: no symptoms Musculoskeletal: Reports: no symptoms Skin: Reports: no symptoms Neurological: Reports: confusion - Patient Data Vitals - most recent: Last Vital Signs Temp 36.6 C 10/12/16 16:00 Pulse 104 H 10/12/16 08:09 Resp 16 10/12/16 16:00 BP 132/81 10/12/16 16:00 Pulse Ox 97 10/12/16 17:01 Weight - most recent: 89.046 kg I&O - last 24 hours: Intake & Output 10/12/16 10/12/16 10/12/16 06:59 14:59 22:59 Intake Total 200 295 100 Balance 200 295 100 Lab Results last 24 hrs: Laboratory Results - last 24 hr 10/12/16 10/12/16 10/12/16 Range/Units 06:32 06:32 06:32 WBC 8.06 (4.23-9.07) K/mm3 RBC 3.95 L (4.63-6.08) M/mm3 Hgb 13.0 L (13.7-17.5) gm/L Hct 38.7 L (40.1-51.0) % MCV 98.0 H (79.0-92.2) fl MCH 32.9 H (25.7-32.2) pg MCHC 33.6 (32.2-35.5) g/dl RDW Std Deviation 56.9 H (35.1-43.9) fL Plt Count 168 (163-337) K/mm3 MPV 10.5 (9.4-12.3) fl Neut % (Auto) 88.1 H (34.0-67.9) % Lymph % (Auto) 5.2 L (21.8-53.1) % Leslie % (Auto) 6.0 (5.3-12.2) % Eos % (Auto) 0 L (0.8-7.0) Baso % (Auto) 0.1 (0.1-1.2) % Neut # 7.10 H (1.78-5.38) K/mm3 Lymph # 0.42 L (1.32-3.57) K/mm3 Leslie # 0.48 (0.30-0.82) K/mm3 Eos # 0.00 L (0.04-0.54) K/mm3 Baso # 0.01 (0.01-0.08) K/mm3 Manual Slide Review Abnormal smear PT 36.9 H (8.0-13.0) SECONDS INR 3.15 Sodium 138 (136-145) mEq/L Potassium 3.7 (3.5-5.1) mEq/L Chloride 103 (98-107) mEq/L Carbon Dioxide 24 (21-32) mEq/L Anion Gap 14.7 (5-15) BUN 63 H (7-18) mg/dL Creatinine 2.1 H (0.7-1.3) mg/dL Est Cr Clr Drug Dosing 26.39 mL/min Estimated GFR (MDRD) 30 (>60) mL/min BUN/Creatinine Ratio 30.0 H (14-18) Glucose 343 H (83-115) mg/dL Calcium 8.6 (8.5-10.1) mg/dL Magnesium 2.4 (1.8-2.4) mg/dl Med Orders - Current: Current Medications Aspirin (Aspirin) 81 mg PO DAILY [facility] Last Admin: 10/12/16 08:09 Dose: 81 mg Citalopram Hydrobromide (Celexa) 20 mg PO DAILY [facility] Last Admin: 10/12/16 08:09 Dose: 20 mg Digoxin (Lanoxin) 125 mcg PO DAILY [facility] Last Admin: 10/12/16 08:09 Dose: 125 mcg Donepezil HCl (Aricept) 5 mg PO DAILY [facility] Last Admin: 10/12/16 08:09 Dose: 5 mg Guaifenesin (Mucinex) 600 mg PO TID [facility] Last Admin: 10/12/16 15:40 Dose: Not Given Sodium Chloride (Normal Saline) 1,000 mls @ 999 mls/hr IV ONETIME [facility] Last Admin: 10/09/16 15:20 Dose: 999 mls/hr Levofloxacin/Dextrose 750 mg/ (Premix) 150 mls @ 100 mls/hr IV Q48H [facility] Last Admin: 10/11/16 16:43 Dose: 100 mls/hr Piperacillin Sod/Tazobactam (Sod 4.5 gm/ Sodium Chloride) 100 mls @ 25 mls/hr IV Q8H [facility] Last Admin: 10/12/16 16:00 Dose: 25 mls/hr Levalbuterol HCl (Xopenex) 1.25 mg NEB QID [facility] Last Admin: 10/12/16 16:59 Dose: 1.25 mg Levothyroxine Sodium (Levothyroxine) 75 mcg PO ACBREAKFAST [facility] Last Admin: 10/12/16 05:35 Dose: 75 mcg Magnesium Oxide (Magnesium Oxide) 400 mg PO DAILY [facility] Last Admin: 10/12/16 08:09 Dose: 400 mg Metoprolol Tartrate (Lopressor) 50 mg PO Q12HR [facility] Last Admin: 10/12/16 08:08 Dose: 50 mg Metoprolol Tartrate (Lopressor) 5 mg IVPUSH Q6H PRN PRN Reason: HR>120 Mometasone Furoate/Formoterol Fumar (Dulera 200-5 Mcg) 2 puff IH BIDRT [facility] Last Admin: 10/12/16 06:24 Dose: 2 puff Pantoprazole Sodium (Protonix) 40 mg PO DAILY [facility] Last Admin: 10/12/16 08:09 Dose: 40 mg Brimonidine ( Alphagan P) 0.15% Opth Soln 0 each EYEBOTH BID [facility] Last Admin: 10/12/16 08:15 Dose: 1 each Brinzolamide (Azopt) Ophthalmic Suspension 0 each EYEBOTH BID [facility] Last Admin: 10/12/16 08:15 Dose: 1 each Potassium Chloride (Klor-Con M20) 20 meq PO TID [facility] Last Admin: 10/12/16 15:40 Dose: Not Given Rosuvastatin Calcium (Crestor) 5 mg PO BEDTIME [facility] Last Admin: 10/11/16 20:14 Dose: 5 mg Senna (Senna) 8.6 mg PO DAILY PRN PRN Reason: Constipation Last Admin: 10/12/16 08:08 Dose: 8.6 mg Sodium Chloride (Saline Flush) 10 ml FLUSH ASDIRECTED PRN PRN Reason: Keep Vein Open Last Admin: 10/12/16 08:03 Dose: 10 ml Terazosin HCl (Hytrin) 10 mg PO BEDTIME [facility] Last Admin: 10/11/16 20:13 Dose: 10 mg Tiotropium [place] (Spiriva Handihaler) 0 mcg INH DAILY [facility] Last Admin: 10/12/16 08:23 Dose: 1 puff Warfarin Sodium (Coumadin) 7.5 mg PO MoWeFr@1800 [facility] Warfarin Sodium (Coumadin) 5 mg PO SuTuThSa@1800 [facility] Discontinued Medications Albuterol/Ipratropium (Duoneb 3.0-0.5 Mg/3 Ml) 3 ml NEB ONETIME ONE Stop: 10/09/16 15:10 Last Admin: 10/09/16 15:15 Dose: 3 ml Budesonide/Formoterol Fumarate (Symbicort 160-4.5 Mcg) 0 gm INH BID [facility] Levofloxacin/Dextrose 750 mg/ (Premix) 150 mls @ 100 mls/hr IV ONETIME ONE Stop: 10/09/16 16:39 Last Admin: 10/09/16 15:20 Dose: 100 mls/hr Piperacillin Sod/Tazobactam (Sod 4.5 gm/ Sodium Chloride) 100 mls @ 200 mls/hr IV ONETIME ONE Stop: 10/09/16 16:20 Last Admin: 10/09/16 19:29 Dose: 200 mls/hr Piperacillin Sod/Tazobactam (Sod 4.5 gm/ Sodium Chloride) 100 mls @ 200 mls/hr IV ONETIME ONE Stop: 10/09/16 19:29 Last Admin: 10/09/16 19:31 Dose: Not Given Levalbuterol HCl (Xopenex) 1.25 mg NEB Q4H [facility] Last Admin: 10/11/16 13:48 Dose: 1.25 mg Levalbuterol HCl (Xopenex) 1.25 mg NEB Q6HRRT [facility] Lorazepam (Ativan) 0.5 mg IVPUSH ONETIME ONE Stop: 10/12/16 10:37 Last Admin: 10/12/16 10:45 Dose: 0.5 mg Lorazepam (Ativan) Confirm Administered Dose 2 mg .ROUTE .STK-MED ONE Stop: 10/12/16 10:40 Last Admin: 10/12/16 10:50 Dose: Not Given Methylprednisolone Sodium Succinate (Solu-Medrol) 40 mg IVPUSH Q12H [facility] Last Admin: 10/12/16 08:07 Dose: 40 mg Metoprolol Succinate (Toprol Xl) 25 mg PO DAILY [facility] Last Admin: 10/10/16 08:21 Dose: 25 mg Brinzolamide 1 Drop* (*Non-Form) 1 drop EYEBOTH BID [facility] Last Admin: 10/10/16 00:34 Dose: Not Given Brimonidine ( Alphagan P) 0.15% Opth SolnNonform 1 drop EYEBOTH BID [facility] Last Admin: 10/10/16 00:34 Dose: Not Given - Exam Quality Assessment: supplemental oxygen, DVT prophylaxis General: alert, oriented HEENT: Pupils equal, Pupils reactive, EOMI Neck: trachea midline Lungs: Normal respiratory effort, Decreased breath sounds, Wheezing Cardiovascular: regular rate, irregular rhythm Abdomen: bowel sounds present, soft, no tenderness, no distension (Male) Exam: Deferred Back Exam: normal inspection Extremities: normal pulses Skin: warm Neurological: normal gait, normal speech Psy/Mental Status: alert, agitated - Problem List Review Problem List Initiated/Reviewed/Updated: Yes - My Orders Last 24 Hours: My Active Orders 10/11/16 17:28 RT Aerosol Therapy [RC] ASDIRECTED 10/11/16 21:00 Levalbuterol HCl [Xopenex] 1.25 mg NEB QID 10/13/16 06:00 INR,PT,PROTHROMBIN TIME [COAG] DAILY 10/14/16 06:00 INR,PT,PROTHROMBIN TIME [COAG] DAILY 10/14/16 18:00 Warfarin [Coumadin] 7.5 mg PO MoWeFr@1800 10/15/16 18:00 Warfarin [Coumadin] 5 mg PO SuTuThSa@1800 - Plan Plan:: Impression: AMS ICU with possible psychotic response to steroids, increasing agitation/ anxiety CAP with history of COPD; strep pneumo COPD exacerbation History of CHF, no signs of heart failure Afib presents with RVR, started on cardizem drip Chronic HTN Hyperlipidemia GERD BPH CKD, stage II Diabetes mellitus, type II Dementia Depression Hypothyroidism Plan: Stop steroids Home meds, adjust coumadin for DI Adjust rate control meds IV ATBs NEBS Keep O2 sats>92% GI/DVT prpohylaxis LOS>96 anticipated for treatment and return to [place] expected 10/14/16
[2016-10-12] MEDS: Terazosin 5 MG Cap PO SCH (20:26)
[2016-10-12] MEDS: Rosuvastatin 10 MG Tab PO SCH (20:26)
[2016-10-13] MEDS: Piperacillin/Tazobactam 4.5 GM in Sodium Chloride 0.9% 100 ML IV SCH ×3 (00:47→15:40)
[2016-10-13] MEDS: Levothyroxine 75 MCG Tab PO SCH ×2 (04:41→12:36)
[2016-10-13] MEDS: Levalbuterol HCl 1.25 MG/3 ML Neb NEB SCH (06:09)
[2016-10-13] MEDS: Formoterol/Mometasone 200-5 MCG 8.8 GM Inhaler IH SCH ×2 (06:09→21:55)
[2016-10-13] MEDS: Donepezil 10 MG Tab PO SCH (08:45)
[2016-10-13] MEDS: Magnesium Oxide 400 MG Tab PO SCH (08:45)
[2016-10-13] MEDS: Citalopram 20 MG Tab PO SCH (08:45)
[2016-10-13] MEDS: Metoprolol Tartrate 50 MG Tab PO SCH (08:45)
[2016-10-13] MEDS: Digoxin 125 MCG Tab PO SCH (08:45)
[2016-10-13] MEDS: Potassium Chloride 20 MEQ Tab.ER PO SCH ×3 (08:46→20:37)
[2016-10-13] MEDS: Pantoprazole 40 MG Tab.CR PO SCH (08:46)
[2016-10-13] MEDS: guaiFENesin 600 MG Tab.ER PO SCH ×3 (08:46→20:36)
[2016-10-13] MEDS: Aspirin 81 MG Tab.Chew PO SCH (08:46)
[2016-10-13] MEDS: Levalbuterol HCl 1.25 MG/0.5 ML Neb NEB SCH ×3 (09:49→21:55)
[2016-10-13] MEDS: Tiotropium Inhaler 18 MCG Inhalation Powder Cap Kit of 5 INH SCH (09:49)
[2016-10-13] MEDS: OPTH EYEBOTH SCH ×2 (10:45→20:37)
[2016-10-13] MEDS: BRIMONIDINE 0.15% EYEBOTH SCH ×2 (10:45→20:37)
[2016-10-13] MEDS: BRINZOLAMIDE EYEBOTH SCH ×2 (10:46→20:38)
[2016-10-13] MEDS: Levofloxacin/Dextrose 5%-Water 750 MG in Premix Bag 1 BAG IV SCH (14:13)
--- NOTE | 2016-10-13 15:31 | PCM.PN ---
- General Info Date of Service: 10/13/16 (LOS>96 hours for Strep PNEUMO) Functional Status: Reports: tolerating diet, ambulating, urinating, other ( confused) - Review of Systems General: Reports: weakness HEENT: Reports: no symptoms Pulmonary: Reports: shortness of breath Cardiovascular: Reports: no symptoms Gastrointestinal: Reports: No symptoms Genitourinary: Reports: no symptoms Musculoskeletal: Reports: no symptoms Skin: Reports: no symptoms Neurological: Reports: no symptoms Psychiatric: Reports: no symptoms - Patient Data Vitals - most recent: Last Vital Signs Temp 36.5 C 10/13/16 12:00 Pulse 66 10/13/16 12:00 Resp 19 10/13/16 12:00 BP 129/69 10/13/16 12:00 Pulse Ox 95 10/13/16 12:00 Weight - most recent: 87.6 kg I&O - last 24 hours: Intake & Output 10/13/16 10/13/16 10/13/16 06:59 14:59 22:59 Intake Total 200 925 Balance 200 925 Lab Results last 24 hrs: Laboratory Results - last 24 hr 10/13/16 10/13/16 Range/Units 05:50 05:50 PT 48.1 H (8.0-13.0) SECONDS INR 4.04 C-Reactive Protein 7.0 H* (<1.0) mg/dL Med Orders - Current: Current Medications Aspirin (Aspirin) 81 mg PO DAILY [facility] Last Admin: 10/13/16 08:46 Dose: 81 mg Citalopram Hydrobromide (Celexa) 20 mg PO DAILY [facility] Last Admin: 10/13/16 08:45 Dose: 20 mg Digoxin (Lanoxin) 125 mcg PO DAILY [facility] Last Admin: 10/13/16 08:45 Dose: 125 mcg Donepezil HCl (Aricept) 5 mg PO DAILY [facility] Last Admin: 10/13/16 08:45 Dose: 5 mg Guaifenesin (Mucinex) 600 mg PO TID [facility] Last Admin: 10/13/16 14:16 Dose: 600 mg Sodium Chloride (Normal Saline) 1,000 mls @ 999 mls/hr IV ONETIME [facility] Last Admin: 10/09/16 15:20 Dose: 999 mls/hr Levofloxacin/Dextrose 750 mg/ (Premix) 150 mls @ 100 mls/hr IV Q48H [facility] Last Admin: 10/13/16 14:13 Dose: 100 mls/hr Piperacillin Sod/Tazobactam (Sod 4.5 gm/ Sodium Chloride) 100 mls @ 25 mls/hr IV Q8H [facility] Last Admin: 10/13/16 08:44 Dose: 25 mls/hr Levalbuterol HCl (Xopenex) 1.25 mg NEB QIDRT [facility] Last Admin: 10/13/16 09:49 Dose: 1.25 mg Levothyroxine Sodium (Levothyroxine) 75 mcg PO ACBREAKFAST [facility] Last Admin: 10/13/16 12:36 Dose: Not Given Magnesium Oxide (Magnesium Oxide) 400 mg PO DAILY [facility] Last Admin: 10/13/16 08:45 Dose: 400 mg Metoprolol Tartrate (Lopressor) 5 mg IVPUSH Q6H PRN PRN Reason: HR>120 Metoprolol Tartrate (Lopressor) 25 mg PO Q12HR [facility] Mometasone Furoate/Formoterol Fumar (Dulera 200-5 Mcg) 2 puff IH BIDRT [facility] Last Admin: 10/13/16 06:09 Dose: 2 puff Pantoprazole Sodium (Protonix) 40 mg PO DAILY [facility] Last Admin: 10/13/16 08:46 Dose: 40 mg Brimonidine ( Alphagan P) 0.15% Opth Soln 0 each EYEBOTH BID [facility] Last Admin: 10/13/16 10:45 Dose: 1 each Brinzolamide (Azopt) Ophthalmic Suspension 0 each EYEBOTH BID [facility] Last Admin: 10/13/16 10:46 Dose: 1 each Potassium Chloride (Klor-Con M20) 20 meq PO TID [facility] Last Admin: 10/13/16 14:16 Dose: 20 meq Rosuvastatin Calcium (Crestor) 5 mg PO BEDTIME [facility] Last Admin: 10/12/16 20:26 Dose: 5 mg Senna (Senna) 8.6 mg PO DAILY PRN PRN Reason: Constipation Last Admin: 10/12/16 08:08 Dose: 8.6 mg Sodium Chloride (Saline Flush) 10 ml FLUSH ASDIRECTED PRN PRN Reason: Keep Vein Open Last Admin: 10/12/16 08:03 Dose: 10 ml Terazosin HCl (Hytrin) 10 mg PO BEDTIME [facility] Last Admin: 10/12/16 20:26 Dose: 10 mg Tiotropium [place] (Spiriva Handihaler) 0 mcg INH DAILY [facility] Last Admin: 10/13/16 09:49 Dose: 1 puff Warfarin Sodium (Coumadin) 7.5 mg PO MoWeFr@1800 [facility] Warfarin Sodium (Coumadin) 5 mg PO SuTuThSa@1800 [facility] Discontinued Medications Albuterol/Ipratropium (Duoneb 3.0-0.5 Mg/3 Ml) 3 ml NEB ONETIME ONE Stop: 10/09/16 15:10 Last Admin: 10/09/16 15:15 Dose: 3 ml Budesonide/Formoterol Fumarate (Symbicort 160-4.5 Mcg) 0 gm INH BID [facility] Levofloxacin/Dextrose 750 mg/ (Premix) 150 mls @ 100 mls/hr IV ONETIME ONE Stop: 10/09/16 16:39 Last Admin: 10/09/16 15:20 Dose: 100 mls/hr Piperacillin Sod/Tazobactam (Sod 4.5 gm/ Sodium Chloride) 100 mls @ 200 mls/hr IV ONETIME ONE Stop: 10/09/16 16:20 Last Admin: 10/09/16 19:29 Dose: 200 mls/hr Piperacillin Sod/Tazobactam (Sod 4.5 gm/ Sodium Chloride) 100 mls @ 200 mls/hr IV ONETIME ONE Stop: 10/09/16 19:29 Last Admin: 10/09/16 19:31 Dose: Not Given Levalbuterol HCl (Xopenex) 1.25 mg NEB Q4H [facility] Last Admin: 10/11/16 13:48 Dose: 1.25 mg Levalbuterol HCl (Xopenex) 1.25 mg NEB Q6HRRT [facility] Levalbuterol HCl (Xopenex) 1.25 mg NEB QID [facility] Last Admin: 10/12/16 16:59 Dose: 1.25 mg Levalbuterol HCl (Xopenex) 1.25 mg NEB QIDRT [facility] Last Admin: 10/13/16 06:09 Dose: 1.25 mg Lorazepam (Ativan) 0.5 mg IVPUSH ONETIME ONE Stop: 10/12/16 10:37 Last Admin: 03/04/17 10:45 Dose: 0.5 mg Lorazepam (Ativan) Confirm Administered Dose 2 mg .ROUTE .STK-MED ONE Stop: 10/12/16 10:40 Last Admin: 10/12/16 10:50 Dose: Not Given Methylprednisolone Sodium Succinate (Solu-Medrol) 40 mg IVPUSH Q12H [facility] Last Admin: 10/12/16 08:07 Dose: 40 mg Metoprolol Succinate (Toprol Xl) 25 mg PO DAILY [facility] Last Admin: 10/10/16 08:21 Dose: 25 mg Metoprolol Tartrate (Lopressor) 50 mg PO Q12HR [facility] Last Admin: 10/13/16 08:45 Dose: 50 mg Brinzolamide 1 Drop* (*Non-Form) 1 drop EYEBOTH BID [facility] Last Admin: 10/10/16 00:34 Dose: Not Given Brimonidine ( Alphagan P) 0.15% Opth SolnNonform 1 drop EYEBOTH BID [facility] Last Admin: 10/10/16 00:34 Dose: Not Given - Exam Quality Assessment: supplemental oxygen, DVT prophylaxis General: alert, oriented, cooperative, no acute distress HEENT: Pupils equal, Pupils reactive, EOMI Neck: supple, trachea midline Lungs: Normal respiratory effort, Decreased breath sounds, Rhonchi (L>R) Cardiovascular: regular rate, irregular rhythm Abdomen: bowel sounds present, soft, no tenderness, no distension (Male) Exam: Deferred Back Exam: normal inspection Extremities: normal pulses Skin: warm Neurological: no new focal deficit, normal speech Psy/Mental Status: alert - Problem List Review Problem List Initiated/Reviewed/Updated: Yes - My Orders Last 24 Hours: My Active Orders 10/13/16 10:00 Levalbuterol HCl [Xopenex] 1.25 mg NEB QIDRT 10/13/16 18:00 DIGOXIN [CHEM] Routine 10/13/16 21:00 Metoprolol Tartrate [Lopressor] 25 mg PO Q12HR 10/14/16 06:00 INR,PT,PROTHROMBIN TIME [COAG] DAILY 10/15/16 18:00 Warfarin [Coumadin] 5 mg PO SuTuThSa@1800 10/16/16 18:00 Warfarin [Coumadin] 7.5 mg PO MoWeFr@1800 - Plan Plan:: Impression: AMS ICU with possible psychotic response to steroids, increasing agitation/ anxiety CAP with history of COPD; strep pneumo COPD exacerbation History of CHF, no signs of heart failure Afib presents with RVR, started on cardizem drip; stopped, requiring adjustment of BB only. Chronic HTN Hyperlipidemia GERD BPH CKD, stage II Diabetes mellitus, type II Dementia Depression Hypothyroidism Plan: Stop steroids Home meds, adjust coumadin for DI Adjust rate control meds IV ATBs NEBS Keep O2 sats>92% GI/DVT prpohylaxis LOS>96 anticipated for treatment and return to NH expected 10/14/16
[2016-10-13] MEDS: Terazosin 5 MG Cap PO SCH (20:36)
[2016-10-13] MEDS: Rosuvastatin 10 MG Tab PO SCH (20:36)
[2016-10-13] MEDS: Metoprolol Tartrate 25 MG Tab PO SCH (20:37)
[2016-10-14] MEDS: Piperacillin/Tazobactam 4.5 GM in Sodium Chloride 0.9% 100 ML IV SCH ×2 (00:15→07:51)
[2016-10-14] MEDS: Levothyroxine 75 MCG Tab PO SCH (05:13)
[2016-10-14] MEDS: Levalbuterol HCl 1.25 MG/0.5 ML Neb NEB SCH ×2 (05:57→09:37)
[2016-10-14] MEDS: Formoterol/Mometasone 200-5 MCG 8.8 GM Inhaler IH SCH (05:58)
[2016-10-14 07:56] VITALS: BP 144/79
[2016-10-14] MEDS: Tiotropium Inhaler 18 MCG Inhalation Powder Cap Kit of 5 INH SCH (09:37)
[2016-10-14] MEDS ORDERED: Levalbuterol HCl 1.25 MG/3 ML Neb NEB SCH (09:54)
[2016-10-14] MEDS: Pantoprazole 40 MG Tab.CR PO SCH (10:00)
[2016-10-14] MEDS: Metoprolol Tartrate 25 MG Tab PO SCH (10:01)
[2016-10-14] MEDS: Citalopram 20 MG Tab PO SCH (10:01)
[2016-10-14] MEDS: Potassium Chloride 20 MEQ Tab.ER PO SCH (10:02)
[2016-10-14] MEDS: Aspirin 81 MG Tab.Chew PO SCH (10:02)
[2016-10-14] MEDS: Donepezil 10 MG Tab PO SCH (10:03)
[2016-10-14] MEDS: Digoxin 125 MCG Tab PO SCH (10:03)
[2016-10-14] MEDS: guaiFENesin 600 MG Tab.ER PO SCH (10:03)
[2016-10-14] MEDS: Magnesium Oxide 400 MG Tab PO SCH (10:03)
[2016-10-14] MEDS: BRIMONIDINE 0.15% EYEBOTH SCH (10:08)
[2016-10-14] MEDS: OPTH EYEBOTH SCH (10:08)
[2016-10-14] MEDS: BRINZOLAMIDE EYEBOTH SCH (10:08)
[2016-10-14] MEDS ORDERED: Phytonadione 3 MG in Sodium Chloride 0.9% 50 ML IV ONE (10:57)
[2016-10-14] MEDS ORDERED: Phytonadione ORAL 2.5mg/2.5ml Soln Simple Syrup U/D PO ONE (11:30)
--- NOTE | 2016-10-14 12:35 | PCM.DCSUM1 ---
<Junie Hi - Last Filed: 10/14/16 12:58> Discharge Summary - Hospital Course Free Text/Narrative:: 86 year old [facility] resident presented with SOB at rest. Has a history of CHF as well as COPD. Has been febrile with a temp of 101F on the day of admission. Additionally has had frequent loose stool. The apparent timeframe for the change in well being appears to be 72 houtrs [employer]. The change in mental status with mild confusion as well as elevated temp subsequently resulted in an evaluation at [facility]. The patient has elevated WBCs, and abnormal inflammatory markers, will be admitted for CAP as well as A fib with RVR, a bed will be obtained in the ICU. Heart rate was controlled in ICU initially with cardiazem drip, transitioned to oral- tolerated well. He was treated for CAP with Zosyn and Levaquin x 5 days. He had negative blood cultures, negative flu and negative mycoplasma. He was positive for strep pneumonia. He will be discharged on Ceftin x 7 days. INR was supratherapeutic during his stay, likely due to levaquin and antibiotic, coumadin was held. Vitamin K was given x 1 dose. Will recommend to HOLD coumadin with recheck of INR the day following discharge with results to PCP, Dr. Montano for review and adjustment with recommendations on when to restart Coumadin based on when to restart coumadin. He worked with PT/OT for strengthening and was slowly improving. Patient will be discharged back to [facility] today. Face to face encounter with patient on day of discharge to discuss diagnoses of COPD, strep pneumonia, CHF, supratherapeutic INR with need for frequent lab monitoring and medication adjustments will recommend home health care nursing services for further assistance with medication education and assistance, monitoring of vital signs, disease education. Patient is home bound at this time. He will also require further PT services to continue therapy for weakness and gait imbalance. He will follow up with PCP, Dr. Montano within one week of discharge and have further home health care services directed by Dr. Montano. - Discharge Data Discharge Date: 10/14/16 (admit date 10/09/16) Discharge Disposition: DC/Tfer to Other 70 Condition: Good - Patient Summary/Data Operative Procedure(s) Performed: None Complications: None Consults: Consultations 10/10/16 09:47 Consult to Occupational Therapy [OT Evaluation and Treatment] [CONS] Routine Consult to Physical Therapy [PT Evaluation and Treatment] [CONS] Routine Labs Pending at D/C: None Recommended Follow-up Testing/Procedures: Follow up with PCP, mana Rodriguez 5-7 days of discharge Planned Operative Procedure(s) after DC: None Hospital Course: As above - Patient Instructions Diet: Heart Healthy Diet, Usual Diet as Tolerated Activity: As Tolerated Activity, Other: Home health care with PT to continue at [facility] Showering/Bathing: May Shower Notify Provider of: Fever, Increased Pain, Nausea and/or Vomiting (cough, shortness of breath, chest pain, palpitations) - Discharge Plan Prescriptions/Med Rec: Metoprolol Tartrate [Lopressor] 25 mg PO Q12HR #60 tablet Cefuroxime [Ceftin] 500 mg PO BID #14 tablet Magnesium Oxide 400 mg PO DAILY #30 tablet guaiFENesin [Mucinex] 600 mg PO TID PRN #40 tab.er PRN Reason: Cough Home Medications: Home Meds Acetaminophen [Tylenol] 650 mg PO BID 06/02/15 [History] Albuterol [Proventil Neb Soln] 2.5 mg NEB TID PRN 06/02/15 [History] Brimonidine [Alphagan P 0.15% Ophth Soln] 1 drop EYEBOTH BID 06/02/15 [History] Brinzolamide [Azopt] 1 drop EYEBOTH BID 06/02/15 [History] Budesonide/Formoterol [Symbicort 160-4.5 MCG] 2 puff IH BID 06/02/15 [History] Folic Acid 1 mg PO BID 06/02/15 [History] Furosemide [Lasix] 80 mg PO BID 06/02/15 [History] Insulin Detemir [Levemir Flextouch] 8 unit SQ BEDTIME 06/02/15 [History] Levothyroxine 75 mcg PO ACBREAKFAST 06/02/15 [History] Omeprazole [Prilosec] 20 mg PO DAILY 06/02/15 [History] Potassium Chloride [Klor-Con M20] 20 meq PO TID 06/02/15 [History] Rosuvastatin Calcium [Crestor] 5 mg PO BEDTIME 10/23/15 [History] Terazosin [Hytrin] 10 mg PO BEDTIME 06/02/15 [History] Tiotropium [Spiriva HandiHaler] 2 inh INH DAILY 06/02/15 [History] Citalopram Hydrobromide [Celexa] 20 mg PO DAILY #30 tab 06/09/15 [Rx] Digoxin [Lanoxin] 125 mcg PO DAILY #30 tablet 06/09/15 [Rx] Aspirin 81 mg PO DAILY 10/09/16 [History] Donepezil [Aricept] 5 mg PO DAILY 10/09/16 [History] Sennosides [Senna] 8.6 mg PO DAILY PRN 10/09/16 [History] Metolazone 5 mg PO MOTH 10/10/16 [History] azaTHIOprine [Azasan] 100 mg PO BID 10/10/16 [History] Cefuroxime [Ceftin] 500 mg PO BID #14 tablet 10/14/16 [Rx] Magnesium Oxide 400 mg PO DAILY #30 tablet 10/14/16 [Rx] Metoprolol Tartrate [Lopressor] 25 mg PO Q12HR #60 tablet 10/14/16 [Rx] Warfarin Sodium [Coumadin] 7.5 mg PO MOWEFR #0 10/14/16 [Rx] Warfarin [Coumadin] 5 mg PO SUTUTHSA #0 10/14/16 [Rx] guaiFENesin [Mucinex] 600 mg PO TID PRN #40 tab.er 10/14/16 [Rx] Patient Handouts: Chronic Obstructive Pulmonary Disease Exacerbation, Easy-to- Read, Heart Failure, [id number], Community-Acquired Pneumonia, Adult, Easy-to- Read Forms: ED Department Discharge Referrals: Rudy Montano MD [Primary Care Provider] - (Please see Dr. Montano at [facility] on Friday at 11:00 PM 10/18/16.) - Discharge Summary/Plan Comment DC Time >30 min.: Yes (40 min) - General Info Date of Service: 10/14/16 Admission Dx/Problem (Free Text: Admission Diagnosis/Problem Admission Diagnosis/Problem Pneumonia Functional Status: Reports: pain controlled, tolerating diet, ambulating, urinating. Denies: new symptoms - Review of Systems General: Reports: weakness (improved) HEENT: Reports: no symptoms Pulmonary: Reports: cough (improved) Cardiovascular: Reports: no symptoms Gastrointestinal: Reports: No symptoms Genitourinary: Reports: no symptoms Musculoskeletal: Reports: no symptoms Neurological: Reports: no symptoms Psychiatric: Reports: no symptoms - Patient Data Vitals - Most Recent: Last Vital Signs Temp 97.1 F 10/14/16 07:55 Pulse 109 H 10/14/16 10:03 Resp 16 10/14/16 07:55 BP 144/79 H 10/14/16 10:01 Pulse Ox 95 10/14/16 09:38 Weight - Most Recent: 88.592 kg I&O - Last 24 hours: Intake & Output 10/13/16 10/14/16 10/14/16 22:59 06:59 14:59 Intake Total 1664 100 330 Balance 1664 100 330 Lab Results - Last 24 hrs: Laboratory Results - last 24 hr 10/13/16 10/14/16 10/14/16 Range/Units 18:32 02:16 06:43 PT 62.7 H* (8.0-13.0) SECONDS INR 5.18 H* Digoxin 0.9 (0.9-2.0) ng/mL C.difficile [id number] Presumptive negative C. difficile Tox (PCR) Negative Med Orders - Current: Current Medications Aspirin (Aspirin) 81 mg PO DAILY [facility] Last Admin: 10/14/16 10:02 Dose: 81 mg Citalopram Hydrobromide (Celexa) 20 mg PO DAILY [facility] Last Admin: 10/14/16 10:01 Dose: 20 mg Digoxin (Lanoxin) 125 mcg PO DAILY [facility] Last Admin: 10/14/16 10:03 Dose: 125 mcg Donepezil HCl (Aricept) 5 mg PO DAILY [facility] Last Admin: 10/14/16 10:03 Dose: 5 mg Guaifenesin (Mucinex) 600 mg PO TID [facility] Last Admin: 10/14/16 10:03 Dose: 600 mg Sodium Chloride (Normal Saline) 1,000 mls @ 999 mls/hr IV ONETIME [facility] Last Admin: 10/09/16 15:20 Dose: 999 mls/hr Levofloxacin/Dextrose 750 mg/ (Premix) 150 mls @ 100 mls/hr IV Q48H [facility] Last Admin: 10/13/16 14:13 Dose: 100 mls/hr Piperacillin Sod/Tazobactam (Sod 4.5 gm/ Sodium Chloride) 100 mls @ 25 mls/hr IV Q8H [facility] Last Admin: 10/14/16 07:51 Dose: 25 mls/hr Levalbuterol HCl (Xopenex) 1.25 mg NEB QIDRT [facility] Levothyroxine Sodium (Levothyroxine) 75 mcg PO ACBREAKFAST [facility] Last Admin: 10/14/16 05:13 Dose: 75 mcg Magnesium Oxide (Magnesium Oxide) 400 mg PO DAILY [facility] Last Admin: 10/14/16 10:03 Dose: 400 mg Metoprolol Tartrate (Lopressor) 5 mg IVPUSH Q6H PRN PRN Reason: HR>120 Metoprolol Tartrate (Lopressor) 25 mg PO Q12HR [facility] Last Admin: 10/14/16 10:01 Dose: 25 mg Mometasone Furoate/Formoterol Fumar (Dulera 200-5 Mcg) 2 puff IH BIDRT [facility] Last Admin: 10/14/16 05:58 Dose: 2 puff Pantoprazole Sodium (Protonix) 40 mg PO DAILY [facility] Last Admin: 10/14/16 10:00 Dose: 40 mg Brimonidine ( Alphagan P) 0.15% Opth Soln 0 each EYEBOTH BID [facility] Last Admin: 10/14/16 10:08 Dose: 1 each Brinzolamide (Azopt) Ophthalmic Suspension 0 each EYEBOTH BID [facility] Last Admin: 10/14/16 10:08 Dose: 1 each Potassium Chloride (Klor-Con M20) 20 meq PO TID [facility] Last Admin: 10/14/16 10:02 Dose: 20 meq Rosuvastatin Calcium (Crestor) 5 mg PO BEDTIME [facility] Last Admin: 10/13/16 20:36 Dose: 5 mg Senna (Senna) 8.6 mg PO DAILY PRN PRN Reason: Constipation Last Admin: 10/12/16 08:08 Dose: 8.6 mg Sodium Chloride (Saline Flush) 10 ml FLUSH ASDIRECTED PRN PRN Reason: Keep Vein Open Last Admin: 10/12/16 08:03 Dose: 10 ml Terazosin HCl (Hytrin) 10 mg PO BEDTIME [facility] Last Admin: 10/13/16 20:36 Dose: 10 mg Tiotropium [place] (Spiriva Handihaler) 0 mcg INH DAILY [facility] Last Admin: 10/14/16 09:37 Dose: 1 puff Warfarin Sodium (Coumadin) 7.5 mg PO MoWeFr@1800 [facility] Warfarin Sodium (Coumadin) 5 mg PO SuTuThSa@1800 [facility] Discontinued Medications Albuterol/Ipratropium (Duoneb 3.0-0.5 Mg/3 Ml) 3 ml NEB ONETIME ONE Stop: 10/09/16 15:10 Last Admin: 10/09/16 15:15 Dose: 3 ml Budesonide/Formoterol Fumarate (Symbicort 160-4.5 Mcg) 0 gm INH BID [facility] Levofloxacin/Dextrose 750 mg/ (Premix) 150 mls @ 100 mls/hr IV ONETIME ONE Stop: 10/09/16 16:39 Last Admin: 10/09/16 15:20 Dose: 100 mls/hr Piperacillin Sod/Tazobactam (Sod 4.5 gm/ Sodium Chloride) 100 mls @ 200 mls/hr IV ONETIME ONE Stop: 10/09/16 16:20 Last Admin: 10/09/16 19:29 Dose: 200 mls/hr Piperacillin Sod/Tazobactam (Sod 4.5 gm/ Sodium Chloride) 100 mls @ 200 mls/hr IV ONETIME ONE Stop: 10/09/16 19:29 Last Admin: 10/09/16 19:31 Dose: Not Given Phytonadione 3 mg/ Sodium (Chloride) 51.5 mls @ 100 mls/hr IV ONETIME ONE Stop: 10/14/16 11:27 Levalbuterol HCl (Xopenex) 1.25 mg NEB Q4H [facility] Last Admin: 10/11/16 13:48 Dose: 1.25 mg Levalbuterol HCl (Xopenex) 1.25 mg NEB Q6HRRT [facility] Levalbuterol HCl (Xopenex) 1.25 mg NEB QID [facility] Last Admin: 10/12/16 16:59 Dose: 1.25 mg Levalbuterol HCl (Xopenex) 1.25 mg NEB QIDRT [facility] Last Admin: 10/13/16 06:09 Dose: 1.25 mg Levalbuterol HCl (Xopenex) 1.25 mg NEB QIDRT [facility] Last Admin: 10/14/16 09:37 Dose: 1.25 mg Lorazepam (Ativan) 0.5 mg IVPUSH ONETIME ONE Stop: 10/12/16 10:37 Last Admin: 10/12/16 10:45 Dose: 0.5 mg Lorazepam (Ativan) Confirm Administered Dose 2 mg .ROUTE .STK-MED ONE Stop: 10/12/16 10:40 Last Admin: 10/12/16 10:50 Dose: Not Given Methylprednisolone Sodium Succinate (Solu-Medrol) 40 mg IVPUSH Q12H [facility] Last Admin: 10/12/16 08:07 Dose: 40 mg Metoprolol Succinate (Toprol Xl) 25 mg PO DAILY [facility] Last Admin: 10/10/16 08:21 Dose: 25 mg Metoprolol Tartrate (Lopressor) 50 mg PO Q12HR [facility] Last Admin: 10/13/16 08:45 Dose: 50 mg Brinzolamide 1 Drop* (*Non-Form) 1 drop EYEBOTH BID [facility] Last Admin: 10/10/16 00:34 Dose: Not Given Brimonidine ( Alphagan P) 0.15% Opth SolnNonform 1 drop EYEBOTH BID [facility] Last Admin: 10/10/16 00:34 Dose: Not Given Phytonadione (Aquamephyton) 3 mg PO ONETIME ONE Stop: 10/14/16 11:31 - Exam Quality Assessment: Reports: DVT prophylaxis General: Reports: alert, oriented, cooperative, no acute distress HEENT: Reports: Pupils equal, Pupils reactive, EOMI, Mucous membr. moist/pink Neck: Reports: supple Lungs: Reports: Clear to auscultation, Normal respiratory effort Cardiovascular: Reports: regular rate, regular rhythm Abdomen: Reports: bowel sounds present, soft, no tenderness, no distension (Male) Exam: Deferred Rectal (Males) Exam: Deferred Neurological: Reports: no new focal deficit Psy/Mental Status: Reports: alert, normal affect, normal mood *Q Meaningful Use (DIS) - VTE *Q VTE Criteria *Q: - Stroke *Q Stroke Criteria *Q: - AMI *Q AMI Criteria *Q: <Deja Navarro - Last Filed: 10/15/16 20:29> Discharge Summary - Hospital Course Free Text/Narrative:: Successfully treated for Strep Pneumo, will be discharged with a short course of Ceftin as above. - Patient Summary/Data Consults: Consultations 10/10/16 09:47 Consult to Occupational Therapy [OT Evaluation and Treatment] [CONS] Routine Consult to Physical Therapy [PT Evaluation and Treatment] [CONS] Routine - Patient Data Vitals - Most Recent: Last Vital Signs Temp 36.2 C 10/14/16 07:55 Pulse 109 H 10/14/16 10:03 Resp 16 10/14/16 07:55 BP 144/79 H 10/14/16 10:01 Pulse Ox 95 10/14/16 09:38 Med Orders - Current: Current Medications Discontinued Medications Albuterol/Ipratropium (Duoneb 3.0-0.5 Mg/3 Ml) 3 ml NEB ONETIME ONE Stop: 10/09/16 15:10 Last Admin: 10/09/16 15:15 Dose: 3 ml Aspirin (Aspirin) 81 mg PO DAILY [facility] Last Admin: 10/14/16 10:02 Dose: 81 mg Budesonide/Formoterol Fumarate (Symbicort 160-4.5 Mcg) 0 gm INH BID [facility] Citalopram Hydrobromide (Celexa) 20 mg PO DAILY [facility] Last Admin: 10/14/16 10:01 Dose: 20 mg Digoxin (Lanoxin) 125 mcg PO DAILY [facility] Last Admin: 10/14/16 10:03 Dose: 125 mcg Donepezil HCl (Aricept) 5 mg PO DAILY [facility] Last Admin: 10/14/16 10:03 Dose: 5 mg Guaifenesin (Mucinex) 600 mg PO TID [facility] Last Admin: 10/14/16 10:03 Dose: 600 mg Sodium Chloride (Normal Saline) 1,000 mls @ 999 mls/hr IV ONETIME [facility] Last Admin: 10/09/16 15:20 Dose: 999 mls/hr Levofloxacin/Dextrose 750 mg/ (Premix) 150 mls @ 100 mls/hr IV ONETIME ONE Stop: 10/09/16 16:39 Last Admin: 10/09/16 15:20 Dose: 100 mls/hr Piperacillin Sod/Tazobactam (Sod 4.5 gm/ Sodium Chloride) 100 mls @ 200 mls/hr IV ONETIME ONE Stop: 10/09/16 16:20 Last Admin: 10/09/16 19:29 Dose: 200 mls/hr Piperacillin Sod/Tazobactam (Sod 4.5 gm/ Sodium Chloride) 100 mls @ 200 mls/hr IV ONETIME ONE Stop: 10/09/16 19:29 Last Admin: 10/09/16 19:31 Dose: Not Given Levofloxacin/Dextrose 750 mg/ (Premix) 150 mls @ 100 mls/hr IV Q48H [facility] Last Admin: 10/13/16 14:13 Dose: 100 mls/hr Piperacillin Sod/Tazobactam (Sod 4.5 gm/ Sodium Chloride) 100 mls @ 25 mls/hr IV Q8H [facility] Last Admin: 10/14/16 07:51 Dose: 25 mls/hr Phytonadione 3 mg/ Sodium (Chloride) 51.5 mls @ 100 mls/hr IV ONETIME ONE Stop: 10/14/16 11:27 Levalbuterol HCl (Xopenex) 1.25 mg NEB Q4H [facility] Last Admin: 10/11/16 13:48 Dose: 1.25 mg Levalbuterol HCl (Xopenex) 1.25 mg NEB Q6HRRT [facility] Levalbuterol HCl (Xopenex) 1.25 mg NEB QID [facility] Last Admin: 10/12/16 16:59 Dose: 1.25 mg Levalbuterol HCl (Xopenex) 1.25 mg NEB QIDRT [facility] Last Admin: 10/13/16 06:09 Dose: 1.25 mg Levalbuterol HCl (Xopenex) 1.25 mg NEB QIDRT [facility] Last Admin: 10/14/16 09:37 Dose: 1.25 mg Levalbuterol HCl (Xopenex) 1.25 mg NEB QIDRT [facility] Last Admin: 10/14/16 15:42 Dose: Not Given Levothyroxine Sodium (Levothyroxine) 75 mcg PO ACBREAKFAST [facility] Last Admin: 10/14/16 05:13 Dose: 75 mcg Lorazepam (Ativan) 0.5 mg IVPUSH ONETIME ONE Stop: 10/12/16 10:37 Last Admin: 10/12/16 10:45 Dose: 0.5 mg Lorazepam (Ativan) Confirm Administered Dose 2 mg .ROUTE .STK-MED ONE Stop: 10/12/16 10:40 Last Admin: 10/12/16 10:50 Dose: Not Given Magnesium Oxide (Magnesium Oxide) 400 mg PO DAILY [facility] Last Admin: 10/14/16 10:03 Dose: 400 mg Methylprednisolone Sodium Succinate (Solu-Medrol) 40 mg IVPUSH Q12H [facility] Last Admin: 10/12/16 08:07 Dose: 40 mg Metoprolol Succinate (Toprol Xl) 25 mg PO DAILY [facility] Last Admin: 10/10/16 08:21 Dose: 25 mg Metoprolol Tartrate (Lopressor) 50 mg PO Q12HR [facility] Last Admin: 10/13/16 08:45 Dose: 50 mg Metoprolol Tartrate (Lopressor) 5 mg IVPUSH Q6H PRN PRN Reason: HR>120 Metoprolol Tartrate (Lopressor) 25 mg PO Q12HR [facility] Last Admin: 10/14/16 10:01 Dose: 25 mg Mometasone Furoate/Formoterol Fumar (Dulera 200-5 Mcg) 2 puff IH BIDRT [facility] Last Admin: 10/14/16 05:58 Dose: 2 puff Brinzolamide 1 Drop* (*Non-Form) 1 drop EYEBOTH BID [facility] Last Admin: 10/10/16 00:34 Dose: Not Given Brimonidine ( Alphagan P) 0.15% Opth SolnNonform 1 drop EYEBOTH BID [facility] Last Admin: 10/10/16 00:34 Dose: Not Given Pantoprazole Sodium (Protonix) 40 mg PO DAILY [facility] Last Admin: 10/14/16 10:00 Dose: 40 mg Brimonidine ( Alphagan P) 0.15% Opth Soln 0 each EYEBOTH BID [facility] Last Admin: 10/14/16 10:08 Dose: 1 each Brinzolamide (Azopt) Ophthalmic Suspension 0 each EYEBOTH BID [facility] Last Admin: 10/14/16 10:08 Dose: 1 each Phytonadione (Aquamephyton) 3 mg PO ONETIME ONE Stop: 10/14/16 11:31 Last Admin: 10/14/16 12:00 Dose: 3 mg Potassium Chloride (Klor-Con M20) 20 meq PO TID [facility] Last Admin: 10/14/16 10:02 Dose: 20 meq Rosuvastatin Calcium (Crestor) 5 mg PO BEDTIME [facility] Last Admin: 10/13/16 20:36 Dose: 5 mg Senna (Senna) 8.6 mg PO DAILY PRN PRN Reason: Constipation Last Admin: 10/12/16 08:08 Dose: 8.6 mg Sodium Chloride (Saline Flush) 10 ml FLUSH ASDIRECTED PRN PRN Reason: Keep Vein Open Last Admin: 10/12/16 08:03 Dose: 10 ml Terazosin HCl (Hytrin) 10 mg PO BEDTIME [facility] Last Admin: 10/13/16 20:36 Dose: 10 mg Tiotropium [place] (Spiriva Handihaler) 0 mcg INH DAILY [facility] Last Admin: 10/14/16 09:37 Dose: 1 puff Warfarin Sodium (Coumadin) 7.5 mg PO MoWeFr@1800 [facility] Warfarin Sodium (Coumadin) 5 mg PO SuTuThSa@1800 [facility] *Q Meaningful Use (DIS) - VTE *Q VTE Criteria *Q: - Stroke *Q Stroke Criteria *Q: - AMI *Q AMI Criteria *Q:
[2016-10-16] MEDS ORDERED: Warfarin 7.5 MG Tab PO SCH (18:00)
[2016-10-17] MEDS ORDERED: Warfarin 5 MG Tab PO SCH (18:00)
== END 2016-10-14 15:00 | disposition other institution (70) | DRG 190 ==
LOC: JD.ED 12:50 → JD.ICU 16:42
PROVIDERS: ADMIT Internal Medicine Cardiovascular Disease; ATTEND Internal Medicine Cardiovascular Disease
DX: J44.0 Chronic obstructive pulmonary disease with (acute) lower respiratory infection (principal); R09.02 Hypoxemia; I95.9 Hypotension, unspecified; R53.1 Weakness; J18.9 Pneumonia, unspecified organism; I13.0 Hypertensive heart and chronic kidney disease with heart failure and stage 1 through stage 4 chronic kidney disease, or unspecified chronic kidney disease; J44.1 Chronic obstructive pulmonary disease with (acute) exacerbation; Z87.01 Personal history of pneumonia (recurrent); Z87.891 Personal history of nicotine dependence; R41.82 Altered mental status, unspecified; E11.22 Type 2 diabetes mellitus with diabetic chronic kidney disease; N18.3 Chronic kidney disease, stage 3 (moderate); J44.9 Chronic obstructive pulmonary disease, unspecified; I50.9 Heart failure, unspecified; Z79.4 Long term (current) use of insulin; I48.2 Chronic atrial fibrillation; E78.00 Pure hypercholesterolemia, unspecified; E78.5 Hyperlipidemia, unspecified; K21.9 Gastro-esophageal reflux disease without esophagitis; N40.0 Benign prostatic hyperplasia without lower urinary tract symptoms; F03.90 Unspecified dementia, unspecified severity, without behavioral disturbance, psychotic disturbance, mood disturbance, and anxiety; F32.9 Major depressive disorder, single episode, unspecified; F41.9 Anxiety disorder, unspecified; E03.9 Hypothyroidism, unspecified; Z79.01 Long term (current) use of anticoagulants; Z79.82 Long term (current) use of aspirin; Z79.899 Other long term (current) drug therapy
CPT/HCPCS: 36415; 71010; 80053; 83605; 83880; 84484; 85025; 85610; 86140; 86738; 87040 ×2; 93005; 94664; 96365; 99285; J1956; J7040; J7050; 71020; 71020-26; 80048; 80162; 81001; 83735; 87493; 87804; 87899; 94640; 94640-76; 94761; 96361; 97112-GP; 97116-GP; 97161-GP; 97165-GO; 99239; A9270; A9270-GY; J2060; J2543; J2920; J7030

== ENCOUNTER 2016-10-23 11:11 | Inpatient (IN) | payer MEDICARE, OTHER ==
[2016-10-23] MEDS ORDERED: Sodium Chloride 0.9% 10 ML Syringe FLUSH PRN (11:47)
[2016-10-23] MEDS ORDERED: Sodium Chloride 0.9% 500 ML IV ONE (11:48)
[2016-10-23] MEDS ORDERED: Sodium Chloride 0.9% 250 ML IV ONE (11:48)
--- NOTE | 2016-10-23 11:51 | EDM.PDOC ---
ED HPI GENERAL MEDICAL PROBLEM - General Chief Complaint: General Stated Complaint: SENT BY [facility] Time Seen by Provider: 10/23/16 11:31 Source of Information: Reports: Patient History Limitations: Reports: No limitations - History of Present Illness INITIAL COMMENTS - FREE TEXT/NARRATIVE: Patient is a 6-year-old male presenting to the ED complaining of general malaise , fatigue, poor appetite, increase her his breath, and nonproductive cough. Patient is a resident of [facility] it was noted to have 2 near syncope episode yesterday. He continued to be unsteady on his feet and experienced additional episode this morning. Patient denies falling hitting his head nor injuring any other part of his body. Patient is on Coumadin chronically for atrial fibrillation. He also has history of congestive heart failure and COPD. Patient completed oral antibiotic course. Currently on Lopressor 25 mg by mouth every 12 hours, magnesium oxide 400 mg by mouth daily, Mucinex 600 mg 3 times a day. Currently denies any documented fever, and chest pain. Onset: gradual Duration: Constant, Getting worse Severity: moderate Improves with: Reports: None Worsens with: Reports: Other (exertion) Associated Symptoms: Reports: cough w sputum, loss of appetite, malaise, shortness of breath. Denies: fever/chills, nausea/vomiting, syncope Treatments [employer]GER: Reports: Other (see below) (None stated) - Related Data Allergies Allergy/AdvReac Type Severity Reaction Status Date / Time methylprednisolone AdvReac Hallucinati Verified 10/24/16 11:18 ons Home Meds: Home Meds Acetaminophen [Tylenol] 650 mg PO BID 06/02/15 [History] Albuterol [Proventil Neb Soln] 2.5 mg NEB TID PRN 06/02/15 [History] Brimonidine [Alphagan P 0.15% Ophth Soln] 1 drop EYEBOTH BID 06/02/15 [History] Brinzolamide [Azopt] 1 drop EYEBOTH BID 06/02/15 [History] Budesonide/Formoterol [Symbicort 160-4.5 MCG] 2 puff IH BID 06/02/15 [History] Folic Acid 1 mg PO BID 06/02/15 [History] Furosemide [Lasix] 80 mg PO BID 06/02/15 [History] Insulin Detemir [Levemir Flextouch] 8 unit SQ BEDTIME 06/02/15 [History] Levothyroxine 75 mcg PO ACBREAKFAST 06/02/15 [History] Potassium Chloride [Klor-Con M20] 20 meq PO TID 06/02/15 [History] Rosuvastatin Calcium [Crestor] 5 mg PO BEDTIME 06/02/15 [History] Terazosin [Hytrin] 10 mg PO BEDTIME 06/02/15 [History] Tiotropium [Spiriva HandiHaler] 2 inh INH DAILY 06/02/15 [History] Citalopram Hydrobromide [Celexa] 20 mg PO DAILY #30 tab 06/09/15 [Rx] Digoxin [Lanoxin] 125 mcg PO DAILY #30 tablet 06/09/15 [Rx] Aspirin 81 mg PO DAILY 10/09/16 [History] Donepezil [Aricept] 5 mg PO DAILY 10/09/16 [History] Sennosides [Senna] 8.6 mg PO DAILY PRN 10/09/16 [History] Metolazone 5 mg PO MOTH 10/10/16 [History] azaTHIOprine [Azasan] 100 mg PO BID 10/10/16 [History] Magnesium Oxide 400 mg PO DAILY #30 tablet 10/14/16 [Rx] Metoprolol Tartrate [Lopressor] 25 mg PO Q12HR #60 tablet 10/14/16 [Rx] Warfarin Sodium [Coumadin] 7.5 mg PO MOWEFR #0 10/14/16 [Rx] Warfarin [Coumadin] 5 mg PO SUTUTHSA #0 10/14/16 [Rx] guaiFENesin [Mucinex] 600 mg PO TID PRN #40 tab.er 10/14/16 [Rx] Bacitracin [Bacitracin Oint 1 GM] 1 dose TOP DAILY 10/23/16 [History] Ipratropium/Albuterol Sulfate [Iprat-Albut 0.5-3(2.5) mg/3 ml] 3 ml IH Q8H PRN 10/23/16 [History] Omeprazole Magnesium [Prilosec Otc] 10 mg PO DAILY 10/23/16 [History] Past Medical History HEENT History: Reports: Glaucoma, Hard of hearing Cardiovascular History: Reports: Afib, Heart Failure, High cholesterol, Hypertension Respiratory History: Reports: COPD, Pneumonia, recurrent, SOB, Other (see below) Other Respiratory History: pulmonary edema, strep pneumonia Gastrointestinal History: Reports: GERD, Other (see below) Other Gastrointestinal History: ulverative colitis, dysphagia Genitourinary History: Reports: Chronic renal insuffiency, Prostate disorder, Renal disease, Retention, urinary, Urinary incontinence Other Genitourinary History: stage3 chronic kidney disease Musculoskeletal History: Reports: Arthritis Other Musculoskeletal History: Difficulty walking with muscle weakness. Neurological History: Reports: Alzheimers disease, Other (see below) Other Neuro History: possible early onset dementia vs. alzheimers Psychiatric History: Reports: Depression Other Psychiatric History: pt has anxiety at times about not returning home to live. Endocrine/Metabolic History: Reports: Diabetes, type II, Hypothyroidism Dermatologic History: Reports: Other (see below) Other Dermatologic History: easily bruised secondary to coumadin use - Infectious Disease History Infectious Disease History: Reports: MRSA - Past Surgical History GI Surgical History: Reports: Colonoscopy, EGD Social & Family History - Family History Family Medical History: Noncontributory - Tobacco Use Smoking Status *Q: Never Smoker Years of Tobacco use: 30 Packs/Tins Daily: 2 Used Tobacco, but Quit: Yes Month Tobacco Last Used: 45 yers ago Second Hand Smoke Exposure: No - Caffeine Use Caffeine Use: Reports: None - Alcohol Use Days Per Week of Alcohol Use: 7 Number of Drinks Per Day: 1 Total Drinks Per Week: 7 - Recreational Drug Use Recreational Drug Use: No - Living Situation & Occupation Living situation: Reports: single, , extended care facility 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 Denies: fever, chills HEENT: Reports: No symptoms Respiratory: Reports: Shortness of Breath, Wheezing, Cough, Sputum. Denies: Hemoptysis Cardiovascular: Reports: Dyspnea on exertion. Denies: Chest pain, Lightheadedness, Palpitations, Syncope (near syncope) GI/Abdominal: Denies: Abdominal pain, Nausea, Vomiting Skin: Denies: rash ED EXAM, GENERAL - Physical Exam Exam: See Below Exam Limited By: No limitations General Appearance: alert, WD/WN, no apparent distress Ears: hearing grossly normal Nose: normal inspection Throat/Mouth: Normal voice, No airway compromise Neck: normal inspection, supple Respiratory/Chest: no accessory muscle use, chest non-tender, rhonchi, wheezing Cardiovascular: normal peripheral pulses, irregularly irregular Peripheral Pulses: 2+: radial (L) GI/Abdominal: normal bowel sounds, soft, non tender Extremities: normal inspection, non-tender, no pedal edema Neurological: alert, oriented, CN II-XII intact, normal cognition, no motor/ sensory deficits Psychiatric: normal affect, normal mood Skin Exam: Warm, Dry, Intact, Normal color, No rash Course - Vital Signs Last Recorded V/S: Last Vital Signs Temp 98.1 F 10/24/16 14:43 Pulse 68 10/24/16 14:43 Resp 20 10/24/16 14:43 BP 91/51 L 10/24/16 14:43 Pulse Ox 96 10/24/16 14:43 Orthostatic Blood Pressure [ 66/48 Standing] Orthostatic Blood Pressure [ 102/48 Sitting] Orthostatic Blood Pressure [ 107/56 Supine] - Orders/Labs/Meds Orders: Medication Orders Acetaminophen (Tylenol) 650 mg PO Q4H PRN PRN Reason: Pain (Mild 1-3)/fever Acetaminophen (Tylenol) 650 mg PO BID [facility] Last Admin: 10/24/16 08:02 Dose: 650 mg Admin: 10/23/16 22:43 Dose: 650 mg Acetaminophen/Hydrocodone Bitart ([place] 325-5 Mg) 1 tab PO Q4H PRN PRN Reason: Pain (moderate 4-6) Albuterol (Proventil Neb Soln) 2.5 mg NEB TID PRN PRN Reason: Shortness of Breath Albuterol/Ipratropium (Duoneb 3.0-0.5 Mg/3 Ml) 3 ml NEB Q4H PRN PRN Reason: Shortness Of Breath/wheezing Aspirin (Aspirin) 81 mg PO DAILY [facility] Last Admin: 10/24/16 08:03 Dose: 81 mg Azathioprine (Imuran) 100 mg PO BID [facility] Last Admin: 10/24/16 08:03 Dose: 100 mg Admin: 10/23/16 22:53 Dose: 100 mg Bacitracin (Bacitracin Oint) 0 gm TOP DAILY [facility] Last Admin: 10/24/16 08:08 Dose: 1 applic Bisacodyl (Dulcolax) 5 mg PO DAILY PRN PRN Reason: Constipation Brimonidine Tartrate (Alphagan 0.2% Ophth Soln) 0 ml EYEBOTH BID [facility] Last Admin: 10/24/16 08:08 Dose: 2 drop Admin: 10/23/16 22:43 Dose: 1 drop Citalopram Hydrobromide (Celexa) 20 mg PO DAILY [facility] Last Admin: 10/24/16 08:02 Dose: 20 mg Digoxin (Lanoxin) 125 mcg PO DAILY [facility] Last Admin: 10/24/16 08:06 Dose: 125 mcg Donepezil HCl (Aricept) 5 mg PO DAILY [facility] Last Admin: 10/24/16 08:03 Dose: 5 mg Dorzolamide HCl (Trusopt 2% Ophth Soln) 0 ml EYEBOTH BID [facility] Last Admin: 10/24/16 08:13 Dose: Admin: 10/23/16 22:46 Dose: Folic Acid (Folic Acid) 1 mg PO BID [facility] Last Admin: 10/24/16 08:02 Dose: 1 mg Admin: 10/23/16 22:44 Dose: 1 mg Furosemide (Lasix) 80 mg PO BID [facility] Last Admin: 10/24/16 08:03 Dose: 80 mg Admin: 10/23/16 22:44 Dose: 80 mg Guaifenesin (Mucinex) 600 mg PO TID PRN PRN Reason: Cough Hydromorphone HCl (Dilaudid) 0.25 mg IVPUSH Q2H PRN PRN Reason: Pain (severe 7-10) Promethazine HCl 12.5 mg/ (Sodium Chloride) 50.5 mls @ 100 mls/hr IV Q6H PRN PRN Reason: Nausea/Vomiting Insulin Detemir (Levemir) 8 unit SUBCUT BEDTIME [facility] Last Admin: 10/23/16 22:46 Dose: Levothyroxine Sodium (Levothyroxine) 75 mcg PO ACBREAKFAST [facility] Last Admin: 10/24/16 05:56 Dose: 75 mcg Lorazepam (Ativan) 0.5 mg IV Q6H PRN PRN Reason: Anxiety Magnesium Oxide (Magnesium Oxide) 400 mg PO BID [facility] Last Admin: 10/24/16 08:12 Dose: 400 mg Magnesium Sulfate (Pharmacy To Dose - Magnesium Replacement) 1 dose .XX ASDIRECTED [facility] Metolazone (Zaroxolyn) 5 mg PO MOTH [facility] Last Admin: 10/24/16 14:14 Dose: 5 mg Metoprolol Tartrate (Lopressor) 25 mg PO Q12HR [facility] Last Admin: 10/24/16 08:07 Dose: 25 mg Admin: 10/23/16 22:44 Dose: 25 mg Mometasone Furoate/Formoterol Fumar (Dulera 200-5 Mcg) 0 puff IH BID [facility] Last Admin: 10/24/16 08:37 Dose: 2 puff Admin: 10/23/16 21:09 Dose: 2 puff Ondansetron HCl (Zofran) 4 mg IV Q6H PRN PRN Reason: Nausea/Vomiting Pantoprazole Sodium (Protonix) 40 mg PO DAILY@0700 [facility] Last Admin: 10/24/16 05:59 Dose: Admin: 10/24/16 05:56 Dose: 40 mg Polyethylene Glycol (Miralax) 17 gm PO DAILY PRN PRN Reason: Constipation Potassium Chloride (Klor-Con M20) 20 meq PO TID [facility] Last Admin: 10/24/16 14:14 Dose: 20 meq Admin: 10/24/16 08:03 Dose: 20 meq Admin: 10/23/16 22:44 Dose: 20 meq Admin: 10/23/16 16:00 Dose: 20 meq Potassium Chloride (Pharmacy To Dose - Potassium Replacement) 1 dose .XX ASDIRECTED [facility] Rosuvastatin Calcium (Crestor) 5 mg PO BEDTIME [facility] Last Admin: 10/23/16 22:45 Dose: 5 mg Senna (Senna) 8.6 mg PO DAILY PRN PRN Reason: Constipation Senna/Docusate Sodium (Senna Plus) 1 tab PO BID PRN PRN Reason: Constipation Sodium Chloride (Saline Flush) 10 ml FLUSH ASDIRECTED PRN PRN Reason: Keep Vein Open Last Admin: 10/23/16 12:05 Dose: 10 ml Terazosin HCl (Hytrin) 10 mg PO BEDTIME [facility] Last Admin: 10/23/16 22:45 Dose: 10 mg Tiotropium [place] (Spiriva Handihaler) 18 mcg INH DAILY [facility] Last Admin: 10/24/16 08:36 Dose: 1 cap Warfarin Sodium (Coumadin) 7.5 mg PO MOWEFR [facility] Last Admin: 10/23/16 17:03 Dose: 7.5 mg Warfarin Sodium (Coumadin) 5 mg PO [facility] Last Admin: 10/24/16 17:54 Dose: 5 mg Labs: Laboratory Tests 10/23/16 10/23/16 10/23/16 Range/Units 11:50 11:50 11:50 WBC 9.23 H (4.23-9.07) K/mm3 RBC 4.17 L (4.63-6.08) M/mm3 Hgb 13.6 L (13.7-17.5) gm/L Hct 40.0 L (40.1-51.0) % MCV 95.9 H (79.0-92.2) fl MCH 32.6 H (25.7-32.2) pg MCHC 34.0 (32.2-35.5) g/dl RDW Std Deviation 53.0 H (35.1-43.9) fL Plt Count 229 (163-337) K/mm3 MPV 9.7 (9.4-12.3) fl Neut % (Auto) 71.7 H (34.0-67.9) % Lymph % (Auto) 10.9 L (21.8-53.1) % [place] % (Auto) 16.9 H (5.3-12.2) % Eos % (Auto) 0.1 L (0.8-7.0) Baso % (Auto) 0.2 (0.1-1.2) % Neut # 6.61 H (1.78-5.38) K/mm3 Lymph # 1.01 L (1.32-3.57) K/mm3 [place] # 1.56 H (0.30-0.82) K/mm3 Eos # 0.01 L (0.04-0.54) K/mm3 Baso # 0.02 (0.01-0.08) K/mm3 Manual Slide Review Normal smear PT 32.7 H (8.0-13.0) SECONDS INR 2.81 APTT 38 H (22-36) SECONDS Sodium 138 (136-145) mEq/L Potassium 3.0 L (3.5-5.1) mEq/L Chloride 100 (98-107) mEq/L Carbon Dioxide 29 (21-32) mEq/L Anion Gap 12.0 (5-15) BUN 38 H (7-18) mg/dL Creatinine 2.4 H (0.7-1.3) mg/dL Est Cr Clr Drug Dosing 23.10 mL/min Estimated GFR (MDRD) 26 (>60) mL/min BUN/Creatinine Ratio 15.8 (14-18) Glucose 118 H (83-115) mg/dL Calcium 8.4 L (8.5-10.1) mg/dL Magnesium 2.0 (1.8-2.4) mg/dl Total Bilirubin 0.7 (0.2-1.0) mg/dL AST 25 (15-37) U/L ALT 23 (16-63) U/L Alkaline Phosphatase 67 (46-116) U/L Troponin I 0.086 H* (0.00-0.056) ng/mL C-Reactive Protein 3.0 H* (<1.0) mg/dL B-Natriuretic Peptide (0-100) pg/mL Total Protein 6.5 (6.4-8.2) g/dl Albumin 2.7 L (3.4-5.0) g/dl Globulin 3.8 gm/dL Albumin/Globulin Ratio 0.7 L (1-2) Digoxin 1.3 (0.9-2.0) ng/mL // Range/Units 11:50 WBC (4.23-9.07) K/mm3 RBC (4.63-6.08) M/mm3 Hgb (13.7-17.5) gm/L Hct (40.1-51.0) % MCV (79.0-92.2) fl MCH (25.7-32.2) pg MCHC (32.2-35.5) g/dl RDW Std Deviation (35.1-43.9) fL Plt Count (163-337) K/mm3 MPV (9.4-12.3) fl Neut % (Auto) (34.0-67.9) % Lymph % (Auto) (21.8-53.1) % [place] % (Auto) (5.3-12.2) % Eos % (Auto) (0.8-7.0) Baso % (Auto) (0.1-1.2) % Neut # (1.78-5.38) K/mm3 Lymph # (1.32-3.57) K/mm3 [place] # (0.30-0.82) K/mm3 Eos # (0.04-0.54) K/mm3 Baso # (0.01-0.08) K/mm3 Manual Slide Review PT (8.0-13.0) SECONDS INR APTT (22-36) SECONDS Sodium (136-145) mEq/L Potassium (3.5-5.1) mEq/L Chloride (98-107) mEq/L Carbon Dioxide (21-32) mEq/L Anion Gap (5-15) BUN (7-18) mg/dL Creatinine (0.7-1.3) mg/dL Est Cr Clr Drug Dosing mL/min Estimated GFR (MDRD) (>60) mL/min BUN/Creatinine Ratio (14-18) Glucose (83-115) mg/dL Calcium (8.5-10.1) mg/dL Magnesium (1.8-2.4) mg/dl Total Bilirubin (0.2-1.0) mg/dL AST (15-37) U/L ALT (16-63) U/L Alkaline Phosphatase (46-116) U/L Troponin I (0.00-0.056) ng/mL C-Reactive Protein (<1.0) mg/dL B-Natriuretic Peptide 518 H (0-100) pg/mL Total Protein (6.4-8.2) g/dl Albumin (3.4-5.0) g/dl Globulin gm/dL Albumin/Globulin Ratio (1-2) Digoxin (0.9-2.0) ng/mL Meds: Medications Generic Name Dose Route Start Last Admin Trade Name Freq PRN Reason Stop Dose Admin Acetaminophen 650 mg 10/23/16 13:52 Tylenol PO Q4H PRN Pain (Mild 1-3)/fever Acetaminophen 650 mg 10/23/16 21:00 10/24/16 08:02 Tylenol PO 650 mg BID [facility] Administration Acetaminophen/Hydrocodone Bitart 1 tab 10/23/16 13:52 [place] 325-5 Mg PO Q4H PRN Pain (moderate 4-6) Albuterol 2.5 mg 10/23/16 14:00 Proventil Neb Soln NEB TID PRN Shortness of Breath Albuterol/Ipratropium 3 ml 03/15/17 13:52 Duoneb 3.0-0.5 Mg/3 Ml NEB Q4H PRN Shortness Of Breath/wheezing Aspirin 81 mg 10/24/16 09:00 10/24/16 08:03 Aspirin PO 81 mg DAILY [facility] Administration Azathioprine 100 mg 10/23/16 21:00 10/24/16 08:03 Imuran PO 100 mg BID [facility] Administration Bacitracin 0 gm 10/24/16 09:00 10/24/16 08:08 Bacitracin Oint TOP 1 applic DAILY [facility] Administration Bisacodyl 5 mg 10/23/16 13:52 Dulcolax PO DAILY PRN Constipation Brimonidine Tartrate 0 ml 10/23/16 21:00 10/24/16 08:08 Alphagan 0.2% Ophth Soln EYEBOTH 2 drop BID [facility] Administration Citalopram Hydrobromide 20 mg 10/24/16 09:00 10/24/16 08:02 Celexa PO 20 mg DAILY [facility] Administration Digoxin 125 mcg 10/24/16 09:00 10/24/16 08:06 Lanoxin PO 125 mcg DAILY [facility] Administration Donepezil HCl 5 mg 10/24/16 09:00 10/24/16 08:03 Aricept PO 5 mg DAILY [facility] Administration Dorzolamide HCl 0 ml 10/23/16 21:00 10/24/16 08:13 Trusopt 2% Ophth Soln EYEBOTH Not Given BID [facility] Folic Acid 1 mg 10/23/16 21:00 10/24/16 08:02 Folic Acid PO 1 mg BID [facility] Administration Furosemide 80 mg 10/23/16 21:00 10/24/16 08:03 Lasix PO 80 mg BID [facility] Administration Guaifenesin 600 mg 10/23/16 14:00 Mucinex PO TID PRN Cough Hydromorphone HCl 0.25 mg 10/23/16 13:52 Dilaudid IVPUSH Q2H PRN Pain (severe 7-10) Promethazine HCl 12.5 mg/ 50.5 mls @ 100 mls/hr 10/23/16 13:52 Sodium Chloride IV Q6H PRN Nausea/Vomiting Insulin Detemir 8 unit 10/23/16 21:00 10/23/16 22:46 Levemir SUBCUT Not Given BEDTIME [facility] Levothyroxine Sodium 75 mcg 10/24/16 06:00 10/24/16 05:56 Levothyroxine PO 75 mcg ACBREAKFAST [facility] Administration Lorazepam 0.5 mg 10/23/16 13:52 Ativan IV Q6H PRN Anxiety Magnesium Oxide 400 mg 10/24/16 09:00 10/24/16 08:12 Magnesium Oxide PO 400 mg BID [facility] Administration Magnesium Sulfate 1 dose 10/23/16 14:15 Pharmacy To Dose - Magnesium Replacement .XX ASDIRECTED [facility] Metolazone 5 mg 10/24/16 14:00 10/24/16 14:14 Zaroxolyn PO 5 mg MOTH [facility] Administration Metoprolol Tartrate 25 mg 10/23/16 21:00 10/24/16 08:07 Lopressor PO 25 mg Q12HR [facility] Administration Mometasone Furoate/Formoterol Fumar 0 puff 10/23/16 21:00 10/24/16 08:37 Dulera 200-5 Mcg IH 2 puff BID [facility] Administration Ondansetron HCl 4 mg 10/23/16 13:52 Zofran IV Q6H PRN Nausea/Vomiting Pantoprazole Sodium 40 mg 10/24/16 07:00 10/24/16 05:59 Protonix PO Not Given DAILY@0700 [facility] Polyethylene Glycol 17 gm 10/23/16 13:52 Miralax PO DAILY PRN Constipation Potassium Chloride 20 meq 10/23/16 15:00 10/24/16 14:14 Klor-Con M20 PO 20 meq TID [facility] Administration Potassium Chloride 1 dose 10/23/16 14:15 Pharmacy To Dose - Potassium Replacement .XX ASDIRECTED [facility] Rosuvastatin Calcium 5 mg 10/23/16 21:00 10/23/16 22:45 Crestor PO 5 mg BEDTIME [facility] Administration Senna 8.6 mg 10/23/16 14:00 Senna PO DAILY PRN Constipation Senna/Docusate Sodium 1 tab 10/23/16 13:52 Senna Plus PO BID PRN Constipation Sodium Chloride 10 ml 10/23/16 11:47 10/23/16 12:05 Saline Flush FLUSH 10 ml ASDIRECTED PRN Administration Keep Vein Open Terazosin HCl 10 mg 10/23/16 21:00 10/23/16 22:45 Hytrin PO 10 mg BEDTIME [facility] Administration Tiotropium [place] 18 mcg 10/24/16 09:00 10/24/16 08:36 Spiriva Handihaler INH 1 cap DAILY [facility] Administration Warfarin Sodium 7.5 mg 10/23/16 18:00 10/23/16 17:03 Coumadin PO 7.5 mg MOWEFR [facility] Administration Warfarin Sodium 5 mg 10/24/16 18:00 10/24/16 17:54 Coumadin PO 5 mg SUTUTHSA [facility] Administration Discontinued Medications Generic Name Dose Route Start Last Admin Trade Name Lonnieq PRN Reason Stop Dose Admin Sodium Chloride 500 mls @ 250 mls/hr 10/23/16 11:48 10/23/16 12:04 Normal Saline IV 10/23/16 13:47 250 mls/hr .BOLUS ONE Administration Sodium Chloride 250 mls @ 250 mls/hr 10/23/16 11:48 10/23/16 17:03 Normal Saline IV 10/23/16 12:47 Not Given .BOLUS ONE Potassium Chloride 10 meq/ 100 mls @ 100 mls/hr 10/24/16 07:30 10/24/16 14:05 Premix IV 10/24/16 11:29 100 mls/hr Q1H [facility] Administration Magnesium Oxide 400 mg 10/24/16 09:00 Magnesium Oxide PO DAILY [facility] Non-Formulary Medication 1 strip 10/23/16 14:00 10/23/16 16:21 Blood Sugar Diagnostic [Blood Glucose Test] SUBCUT Not Given Q48H [facility] Non-Formulary Medication 1 strip 10/23/16 14:00 10/23/16 16:21 Lancets [Accu-Chek] SUBCUT Not Given Q48H [facility] Pantoprazole Sodium 40 mg 10/24/16 09:00 10/24/16 08:02 Protonix PO 40 mg DAILY [facility] Administration - Re-Assessments/Exams Free Text/Narrative Re-Assessment/Exam: Orthostatic vitals were obtained and positive. Ordered a peripheral IV with normal saline 250 mL bolus. Initial labs and studies include: CBC, chem 14, CRP, troponin, PT/INR, PTT, dig level, magnesium , BMP, EKG, and chest x-ray two-view. 10/23/16 11:50 Additional 250mls/hr bolus ordered. 12:55 Labs reviewed: White blood cell count 9.23, hemoglobin 13.6, platelets 229 , INR is 2.81, sodium 138, potassium 3.0, creatinine 2.4, BUN 38, troponin 0.086 , CRP 3.0, digoxin level I.0, BNP 518. CXR reviewed with . No acute findings noted. Final interpretation pending. 1322 Patient meets inpatient admission for presyncopal epidsodes, hypovolemia, hypokalemia, CKD, Elevated troponins, A-Fib, and orthostatic vitals. Discussed with Dr. Victor and he has accepted the patient. Departure - Departure Time of Disposition: 13:27 Disposition: Admitted As Inpatient 65 Condition: fair Clinical Impression: Elevated troponin, Hypokalemia, Orthostatic hypotension, Postural dizziness with presyncope CKD (chronic kidney disease) Qualifiers: Chronic kidney disease stage: stage 3 (moderate) Qualified Code(s): N18.3 - Chronic kidney disease, stage 3 (moderate) CHF (congestive heart failure) Qualifiers: Congestive heart failure type: unspecified congestive heart failure type Congestive heart failure chronicity: chronic Qualified Code(s): I50.9 - Heart failure, unspecified
[2016-10-23] MEDS ORDERED: Acetaminophen/HYDROcodone 325-5 MG Tab PO PRN (13:52)
[2016-10-23] MEDS ORDERED: Ondansetron 4 MG/2 ML SDV IV PRN (13:52)
[2016-10-23] MEDS ORDERED: Albuterol/Ipratropium 3.0-0.5 MG/3 ML Neb Soln NEB PRN (13:52)
[2016-10-23] MEDS ORDERED: Acetaminophen 325 MG Tab PO PRN (13:52)
[2016-10-23] MEDS ORDERED: Promethazine 12.5 MG in Sodium Chloride 0.9% 50 ML IV PRN (13:52)
[2016-10-23] MEDS ORDERED: LORazepam 2 MG/ML MDV IV PRN (13:52)
[2016-10-23] MEDS ORDERED: Polyethylene Glycol 3350 Powder 17 GM Packet PO PRN (13:52)
[2016-10-23] MEDS ORDERED: HYDROmorphone 0.5 MG/0.5 ML Syringe IVPUSH PRN (13:52)
[2016-10-23] MEDS ORDERED: Bisacodyl 5 MG Tab PO PRN (13:52)
--- NOTE | 2016-10-23 13:52 | PCM.HP ---
H&P History of Present Illness - General Date of Service: 10/23/16 Admit Problem/Dx: Admission Diagnosis/Problem Admission Diagnosis/Problem Hypovolemia Source of Information: Patient, Old records, RN notes reviewed History Limitations: Reports: Physical impairment - History of Present Illness Initial Comments - Free Text/Narative: This is is an 86 yo pleasant elderly white male with past medical hx/o COPD, HTN , HLD, GERD, BPH, CKD Stage 3-4, Hypothyroidism, MDD, GERD, DM2, Dementia, Hx/o Wedge Compression fracture, who comes in with complaint of near syncope and was pos for orthostatic hypotension with hypokalemia. Patient is a resident of . He also carries a hx/o Chronic A-Fib on warfarin, RA, Chronic Generalized Weakness, Gait Imbalance and Difficulty Walking. His initial work up in ED shows a CBC remarkable for WBC 9.23, Hgb 13.6, Hct 40 and neutrophils 6.61. His INR 2.81. His Chemistry is significant for K 3, BUN 38, Cr 2.4, BS 118, Ca 8.4, Troponin 0.086, CRP 3, BNP 518, and albumin 2.7. His UA shows no UTI. CXR is fairly stable compared to previous study. Patient was referred to me for further management of his presenting complaints. He is DNR. - Related Data Allergies/Adverse Reactions: Allergies Allergy/AdvReac Type Severity Reaction Status Date / Time methylprednisolone Allergy Hallucinati Verified 10/23/16 11:57 ons Home Medications: Home Meds Acetaminophen [Tylenol] 650 mg PO BID 06/02/15 [History] Albuterol [Proventil Neb Soln] 2.5 mg NEB TID PRN 06/02/15 [History] Brimonidine [Alphagan P 0.15% Ophth Soln] 1 drop EYEBOTH BID 06/02/15 [History] Brinzolamide [Azopt] 1 drop EYEBOTH BID 06/02/15 [History] Budesonide/Formoterol [Symbicort 160-4.5 MCG] 2 puff IH BID 06/02/15 [History] Folic Acid 1 mg PO BID 06/02/15 [History] Furosemide [Lasix] 80 mg PO BID 06/02/15 [History] Insulin Detemir [Levemir Flextouch] 8 unit SQ BEDTIME 06/02/15 [History] Levothyroxine 75 mcg PO ACBREAKFAST 06/02/15 [History] Potassium Chloride [Klor-Con M20] 20 meq PO TID 06/02/15 [History] Rosuvastatin Calcium [Crestor] 5 mg PO BEDTIME 06/02/15 [History] Terazosin [Hytrin] 10 mg PO BEDTIME 06/02/15 [History] Tiotropium [Spiriva HandiHaler] 2 inh INH DAILY 06/02/15 [History] Citalopram Hydrobromide [Celexa] 20 mg PO DAILY #30 tab 06/09/15 [Rx] Digoxin [Lanoxin] 125 mcg PO DAILY #30 tablet 06/09/15 [Rx] Aspirin 81 mg PO DAILY 10/09/16 [History] Donepezil [Aricept] 5 mg PO DAILY 10/09/16 [History] Sennosides [Senna] 8.6 mg PO DAILY PRN 10/09/16 [History] Metolazone 5 mg PO MOTH 10/10/16 [History] azaTHIOprine [Azasan] 100 mg PO BID 10/10/16 [History] Magnesium Oxide 400 mg PO DAILY #30 tablet 10/14/16 [Rx] Metoprolol Tartrate [Lopressor] 25 mg PO Q12HR #60 tablet 10/14/16 [Rx] Warfarin Sodium [Coumadin] 7.5 mg PO MOWEFR #0 10/14/16 [Rx] Warfarin [Coumadin] 5 mg PO SUTUTHSA #0 10/14/16 [Rx] guaiFENesin [Mucinex] 600 mg PO TID PRN #40 tab.er 10/14/16 [Rx] Bacitracin [Bacitracin Oint 1 GM] 1 dose TOP DAILY 10/23/16 [History] Ipratropium/Albuterol Sulfate [Iprat-Albut 0.5-3(2.5) mg/3 ml] 3 ml IH Q8H PRN 10/23/16 [History] Omeprazole Magnesium [Prilosec Otc] 10 mg PO DAILY 10/23/16 [History] Past Medical History HEENT History: Reports: Glaucoma, Hard of hearing Cardiovascular History: Reports: Afib, Heart Failure, High cholesterol, Hypertension Respiratory History: Reports: COPD, Pneumonia, recurrent, SOB, Other (see below) Other Respiratory History: pulmonary edema, strep pneumonia Gastrointestinal History: Reports: GERD, Other (see below) Other Gastrointestinal History: ulverative colitis, dysphagia Genitourinary History: Reports: Chronic renal insuffiency, Prostate disorder, Renal disease, Retention, urinary, Urinary incontinence Other Genitourinary History: stage3 chronic kidney disease Musculoskeletal History: Reports: Arthritis Other Musculoskeletal History: Difficulty walking with muscle weakness. Neurological History: Reports: Alzheimers disease, Other (see below) Other Neuro History: possible early onset dementia vs. alzheimers Psychiatric History: Reports: Depression Other Psychiatric History: pt has anxiety at times about not returning home to live. Endocrine/Metabolic History: Reports: Diabetes, type II, Hypothyroidism Dermatologic History: Reports: Other (see below) Other Dermatologic History: easily bruised secondary to coumadin use - Infectious Disease History Infectious Disease History: Reports: MRSA - Past Surgical History GI Surgical History: Reports: Colonoscopy, EGD Social & Family History - Family History Family Medical History: Noncontributory - Tobacco Use Smoking Status *Q: Never Smoker Years of Tobacco use: 30 Packs/Tins Daily: 2 Used Tobacco, but Quit: Yes Month Tobacco Last Used: 45 yers ago Second Hand Smoke Exposure: No - Caffeine Use Caffeine Use: Reports: None - Alcohol Use Days Per Week of Alcohol Use: 7 Number of Drinks Per Day: 1 Total Drinks Per Week: 7 - Recreational Drug Use Recreational Drug Use: No - Living Situation & Occupation Living situation: Reports: single, , extended care facility 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 Denies: fever, chills HEENT: Denies: contact lenses Pulmonary: Denies: Shortness of Breath Cardiovascular: Denies: chest pain Gastrointestinal: Denies: Abdominal pain, Nausea, Vomiting Genitourinary: Reports: no symptoms Musculoskeletal: Reports: joint pain Skin: Denies: no symptoms, cyanosis, pallor, rash, erythema, wound Psychiatric: Denies: depression, anxiety, hallucinations Neurological: Reports: Difficulty Walking, Gait Disturbance. Denies: Confusion Hematologic/Lymphatic: Reports: no symptoms Immunologic: Reports: no symptoms Exam - Exam Exam: See Below - Vital Signs Vital Signs: Last Vital Signs Temp 36.3 C 10/23/16 11:19 Pulse 96 10/23/16 11:19 Resp 18 10/23/16 11:19 BP 107/56 L 10/23/16 11:19 Pulse Ox 96 10/23/16 11:19 Weight: 87.317 kg - Exam General: alert, cooperative, mild distress HEENT: Conjunctiva clear, Hearing intact, Mucosa moist & pink, Nares patent, Normal nasal septum, Posterior pharynx clear, PERRLA Neck: supple, trachea midline, 2+ carotid pulse wo bruit Lungs: Normal respiratory effort, Decreased breath sounds Cardiovascular: irregular rhythm, other (irregular rate) Abdomen: normal bowel sounds, soft. No: organomegaly (Male) Exam: Deferred Rectal (Males) Exam: Deferred Back Exam: normal inspection, decreased range of motion Extremities: normal inspection, normal pulses. No: clubbing, cyanosis, calf tenderness, edema Skin: warm, dry, intact, other (hyperpigmentaion on b/l lower extremity) Skin Alteration Location (drawings not to scale): 1 - hyperpigmentation 2 - hyperpigmentation Neuro Extensive - Mental Status: normal mood/affect, slow response to commands Neuro Extensive - Motor, Sensory, Reflexes: CN II-XII intact (limited but fairly intact), abnormal gait Psychiatric: alert, normal affect, normal mood - Patient Data Result Diagrams: 10/23/16 11:50 10/23/16 11:50 *Q Meaningful Use (ADM) - VTE *Q VTE Criteria *Q: - Stroke *Q Stroke Criteria *Q: - AMI *Q AMI Criteria *Q: Problem List Initiated/Reviewed/Updated: Yes Orders Last 24hrs: Medication Orders Sodium Chloride (Saline Flush) 10 ml FLUSH ASDIRECTED PRN PRN Reason: Keep Vein Open Last Admin: 10/23/16 12:05 Dose: 10 ml Assessment/Plan Comment:: Assessment/Plan: Acute: Near Syncope - Multi-factorial - Likely from Orthostasis Orthostatic Hypotension - BPs: laying 121/75, sitting 100/68 and standing 90/62 mmHg - Risk Factors: Poor Extremity Circulation (lower extremity skin discoloration) and BP meds - DDx: Autonomic Dysfunction - Received adequate hydration in ED Recurrent Falls - Per grand-daughter, usually happens at night when he goes to the bathroom - Risk factors; poor gait and balance, poor lighting, unwanted objects on his pathway, difficulty walking and, ataxia Generalized Weakness- Seems to be Chronic - Likely Multi-factorial - RA alone is a risk factor - Check thyroid and vit D level - PT/OT consult Mild Hypokalemia - K 3.0 - Pharmacy to replete and monitor Elevated BNP Level - Carries a hx/o HF with Unknown EF - BNP is 518 - CXR no acute abnormal findings - Could not find baseline echo - Check with PCP, will repeat if > 6 months Elevated Troponin Level - Likely from CKD and A-fib - Would not monitor it Chronic: COPD Chronic A-Fib on warfarin, INR therapeutic level HTN HLD GERD RA BPH CKD Stage 3-4 Hypothyroidism MDD GERD Impaired Vision DM2 Dementia Hx/o Wedge Compression fracture Plan: Admit to Med-Surg w/ Tele Routine AM Labs Resume Home Meds PT/OT consult Fall Precautions CM/SW for d/c planning Code status: DNR
[2016-10-23] MEDS ORDERED: Albuterol 0.083% 2.5 MG/3 ML Neb Soln NEB PRN (14:00)
[2016-10-23] MEDS ORDERED: Sennosides 8.6 MG Tab PO PRN (14:00)
[2016-10-23] MEDS ORDERED: guaiFENesin 600 MG Tab.ER PO PRN (14:00)
[2016-10-23] MEDS ORDERED: BLOOD SUGAR DIAGNOSTIC SUBCUT SCH (14:00)
[2016-10-23] MEDS ORDERED: LANCETS SUBCUT SCH (14:00)
[2016-10-23] MEDS: Potassium Chloride 20 MEQ Tab.ER PO SCH ×2 (16:00→22:44)
[2016-10-23] MEDS: Warfarin 7.5 MG Tab PO SCH (17:03)
[2016-10-23] MEDS: Formoterol/Mometasone 200-5 MCG 8.8 GM Inhaler IH SCH (21:09)
[2016-10-23] MEDS: Brimonidine 0.2% Ophth Soln 5 ML Bottle EYEBOTH SCH (22:43)
[2016-10-23] MEDS: Acetaminophen 325 MG Tab PO SCH (22:43)
[2016-10-23] MEDS: Metoprolol Tartrate 25 MG Tab PO SCH (22:44)
[2016-10-23] MEDS: Furosemide 80 MG Tab PO SCH (22:44)
[2016-10-23] MEDS: Folic Acid 1 MG Tab PO SCH (22:44)
[2016-10-23] MEDS: Rosuvastatin 10 MG Tab PO SCH (22:45)
[2016-10-23] MEDS: Terazosin 5 MG Cap PO SCH (22:45)
[2016-10-23] MEDS: Dorzolamide 2% Ophth Soln 10 ML Bottle EYEBOTH SCH (22:46)
[2016-10-23] MEDS: Insulin Detemir 100 Units/ML 3 ML Pen SUBCUT SCH (22:46)
[2016-10-24] MEDS: Pantoprazole 40 MG Tab.CR PO SCH ×2 (05:56→05:59)
[2016-10-24] MEDS: Levothyroxine 75 MCG Tab PO SCH (05:56)
--- NOTE | 2016-10-24 07:18 | PCM.PN ---
- General Info Date of Service: 10/24/16 Admission Dx/Problem (Free Text): Admission Diagnosis/Problem Admission Diagnosis/Problem Hypovolemia Hypotension Terence is seen this morning resting in bed. He is sleepy, responds to questions and answers appropriately but falls asleep. Denies c/o pain, no CP, SOB, dizziness or headache, no back or abd pain. Functional Status: Reports: pain controlled, tolerating diet, ambulating (with assist), urinating. Denies: new symptoms - Review of Systems General: Reports: Weakness, Fatigue HEENT: Reports: no symptoms Pulmonary: Reports: no symptoms. Denies: shortness of breath, cough Cardiovascular: Denies: Chest Pain, Palpitations, Lightheadedness Gastrointestinal: Reports: No symptoms Genitourinary: Reports: no symptoms Musculoskeletal: Reports: other (chronic joint pain due to RA) Neurological: Reports: Weakness. Denies: Confusion, Dizziness, Headache Psychiatric: Reports: no symptoms - Patient Data Vitals - most recent: Last Vital Signs Temp 98.4 F 10/24/16 04:09 Pulse 65 10/24/16 04:09 Resp 16 10/24/16 04:09 BP 91/58 L 10/24/16 04:09 Pulse Ox 95 10/24/16 04:09 Weight - most recent: 184 lb 4.8 oz I&O - last 24 hours: Intake & Output 10/23/16 10/24/16 10/24/16 22:59 06:59 14:59 Intake Total 1011 60 Output Total 700 Balance 1011 -640 Lab Results last 24 hrs: Laboratory Results - last 24 hr 10/23/16 10/23/16 10/24/16 Range/Units 14:10 22:40 05:04 WBC 5.31 (4.23-9.07) K/mm3 RBC 3.71 L (4.63-6.08) M/mm3 Hgb 12.3 L (13.7-17.5) gm/L Hct 36.1 L (40.1-51.0) % MCV 97.3 H (79.0-92.2) fl MCH 33.2 H (25.7-32.2) pg MCHC 34.1 (32.2-35.5) g/dl RDW Std Deviation 55.2 H (35.1-43.9) fL Plt Count 202 (163-337) K/mm3 MPV 10.0 (9.4-12.3) fl Neut % (Auto) 54.9 (34.0-67.9) % Lymph % (Auto) 16.4 L (21.8-53.1) % [place] % (Auto) 27.3 H (5.3-12.2) % Eos % (Auto) 0.4 L (0.8-7.0) Baso % (Auto) 0.8 (0.1-1.2) % Neut # 2.92 (1.78-5.38) K/mm3 Lymph # 0.87 L (1.32-3.57) K/mm3 [place] # 1.45 H (0.30-0.82) K/mm3 Eos # 0.02 L (0.04-0.54) K/mm3 Baso # 0.04 (0.01-0.08) K/mm3 POC Glucose 121 H (83-110) mg/dL Urine Color Yellow (Yellow) Urine Appearance Clear (Clear) Urine pH 6.0 (5.0-8.0) Ur Specific [place] 1.015 (1.005-1.030) Urine Protein Negative (Negative) Urine Glucose (UA) Negative (Negative) Urine Ketones Negative (Negative) Urine Occult Blood Negative (Negative) Urine Nitrite Negative (Negative) Urine Bilirubin Negative (Negative) Urine Urobilinogen 0.2 (0.2-1.0) Ur Leukocyte Esterase Negative (Negative) Urine RBC 0-5 (0-5) /hpf Urine WBC 0-5 (0-5) /hpf Ur Epithelial Cells 0-5 (0-5) /hpf Urine Bacteria Few (FEW) /hpf Urine Mucus Few (FEW) /hpf 10/24/16 Range/Units 06:43 WBC (4.23-9.07) K/mm3 RBC (4.63-6.08) M/mm3 Hgb (13.7-17.5) gm/L Hct (40.1-51.0) % MCV (79.0-92.2) fl MCH (25.7-32.2) pg MCHC (32.2-35.5) g/dl RDW Std Deviation (35.1-43.9) fL Plt Count (163-337) K/mm3 MPV (9.4-12.3) fl Neut % (Auto) (34.0-67.9) % Lymph % (Auto) (21.8-53.1) % [place] % (Auto) (5.3-12.2) % Eos % (Auto) (0.8-7.0) Baso % (Auto) (0.1-1.2) % Neut # (1.78-5.38) K/mm3 Lymph # (1.32-3.57) K/mm3 [place] # (0.30-0.82) K/mm3 Eos # (0.04-0.54) K/mm3 Baso # (0.01-0.08) K/mm3 POC Glucose 120 H (83-110) mg/dL Urine Color (Yellow) Urine Appearance (Clear) Urine pH (5.0-8.0) Ur Specific [place] (1.005-1.030) Urine Protein (Negative) Urine Glucose (UA) (Negative) Urine Ketones (Negative) Urine Occult Blood (Negative) Urine Nitrite (Negative) Urine Bilirubin (Negative) Urine Urobilinogen (0.2-1.0) Ur Leukocyte Esterase (Negative) Urine RBC (0-5) /hpf Urine WBC (0-5) /hpf Ur Epithelial Cells (0-5) /hpf Urine Bacteria (FEW) /hpf Urine Mucus (FEW) /hpf [place] Results last 24 hrs: Microbiology 10/23/16 19:35 Gram Stain - Final Sputum - Expectorated 10/23/16 14:00 Influenza Type A Antigen Screen - Final Nasopharyngeal Swab - Nare, Left NEGATIVE INFLUENZA A VIRUS AG Influenza Type B Antigen Screen - Final NEGATIVE INFLUENZA B VIRUS AG Med Orders - Current: Current Medications Acetaminophen (Tylenol) 650 mg PO Q4H PRN PRN Reason: Pain (Mild 1-3)/fever Acetaminophen (Tylenol) 650 mg PO BID [facility] Last Admin: 10/23/16 22:43 Dose: 650 mg Acetaminophen/Hydrocodone Bitart (Niland 325-5 Mg) 1 tab PO Q4H PRN PRN Reason: Pain (moderate 4-6) Albuterol (Proventil Neb Soln) 2.5 mg NEB TID PRN PRN Reason: Shortness of Breath Albuterol/Ipratropium (Duoneb 3.0-0.5 Mg/3 Ml) 3 ml NEB Q4H PRN PRN Reason: Shortness Of Breath/wheezing Aspirin (Aspirin) 81 mg PO DAILY [facility] Azathioprine (Imuran) 100 mg PO BID [facility] Last Admin: 10/23/16 22:53 Dose: 100 mg Bacitracin (Bacitracin Oint) 0 gm TOP DAILY [facility] Bisacodyl (Dulcolax) 5 mg PO DAILY PRN PRN Reason: Constipation Brimonidine Tartrate (Alphagan 0.2% Ophth Soln) 0 ml EYEBOTH BID [facility] Last Admin: 10/23/16 22:43 Dose: 1 drop Citalopram Hydrobromide (Celexa) 20 mg PO DAILY [facility] Digoxin (Lanoxin) 125 mcg PO DAILY [facility] Donepezil HCl (Aricept) 5 mg PO DAILY [facility] Dorzolamide HCl (Trusopt 2% Ophth Soln) 0 ml EYEBOTH BID [facility] Last Admin: 10/23/16 22:46 Dose: Not Given Folic Acid (Folic Acid) 1 mg PO BID [facility] Last Admin: 10/23/16 22:44 Dose: 1 mg Furosemide (Lasix) 80 mg PO BID [facility] Last Admin: 10/23/16 22:44 Dose: 80 mg Guaifenesin (Mucinex) 600 mg PO TID PRN PRN Reason: Cough Hydromorphone HCl (Dilaudid) 0.25 mg IVPUSH Q2H PRN PRN Reason: Pain (severe 7-10) Promethazine HCl 12.5 mg/ (Sodium Chloride) 50.5 mls @ 100 mls/hr IV Q6H PRN PRN Reason: Nausea/Vomiting Insulin Detemir (Levemir) 8 unit SUBCUT BEDTIME [facility] Last Admin: 10/23/16 22:46 Dose: Not Given Levothyroxine Sodium (Levothyroxine) 75 mcg PO ACBREAKFAST [facility] Last Admin: 10/24/16 05:56 Dose: 75 mcg Lorazepam (Ativan) 0.5 mg IV Q6H PRN PRN Reason: Anxiety Magnesium Oxide (Magnesium Oxide) 400 mg PO DAILY [facility] Magnesium Sulfate (Pharmacy To Dose - Magnesium Replacement) 1 dose .XX ASDIRECTED [facility] Metolazone (Zaroxolyn) 5 mg PO MOTH [facility] Metoprolol Tartrate (Lopressor) 25 mg PO Q12HR [facility] Last Admin: 10/23/16 22:44 Dose: 25 mg Mometasone Furoate/Formoterol Fumar (Dulera 200-5 Mcg) 0 puff IH BID [facility] Last Admin: 10/23/16 21:09 Dose: 2 puff Ondansetron HCl (Zofran) 4 mg IV Q6H PRN PRN Reason: Nausea/Vomiting Pantoprazole Sodium (Protonix) 40 mg PO DAILY [facility] Pantoprazole Sodium (Protonix) 40 mg PO DAILY@0700 [facility] Last Admin: 10/24/16 05:59 Dose: Not Given Polyethylene Glycol (Miralax) 17 gm PO DAILY PRN PRN Reason: Constipation Potassium Chloride (Klor-Con M20) 20 meq PO TID [facility] Last Admin: 10/23/16 22:44 Dose: 20 meq Potassium Chloride (Pharmacy To Dose - Potassium Replacement) 1 dose .XX ASDIRECTED [facility] Rosuvastatin Calcium (Crestor) 5 mg PO BEDTIME [facility] Last Admin: 10/23/16 22:45 Dose: 5 mg Senna (Senna) 8.6 mg PO DAILY PRN PRN Reason: Constipation Senna/Docusate Sodium (Senna Plus) 1 tab PO BID PRN PRN Reason: Constipation Sodium Chloride (Saline Flush) 10 ml FLUSH ASDIRECTED PRN PRN Reason: Keep Vein Open Last Admin: 10/23/16 12:05 Dose: 10 ml Terazosin HCl (Hytrin) 10 mg PO BEDTIME [facility] Last Admin: 10/23/16 22:45 Dose: 10 mg Tiotropium Pace (Spiriva Handihaler) 18 mcg INH DAILY [facility] Warfarin Sodium (Coumadin) 7.5 mg PO MOWEFR [facility] Last Admin: 10/23/16 17:03 Dose: 7.5 mg Warfarin Sodium (Coumadin) 5 mg PO SUTUTHSA [facility] Discontinued Medications Sodium Chloride (Normal Saline) 500 mls @ 250 mls/hr IV .BOLUS ONE Stop: 10/23/16 13:47 Last Admin: 10/23/16 12:04 Dose: 250 mls/hr Sodium Chloride (Normal Saline) 250 mls @ 250 mls/hr IV .BOLUS ONE Stop: 10/23/16 12:47 Last Admin: 10/23/16 17:03 Dose: Not Given Non-Formulary Medication (Blood Sugar Diagnostic [Blood Glucose Test]) 1 strip SUBCUT Q48H [facility] Last Admin: 10/23/16 16:21 Dose: Not Given Non-Formulary Medication (Lancets [Accu-Chek]) 1 strip SUBCUT Q48H [facility] Last Admin: 10/23/16 16:21 Dose: Not Given - Exam Quality Assessment: DVT prophylaxis General: alert, oriented, cooperative, no acute distress HEENT: Pupils equal, Pupils reactive, EOMI, Mucous membr. moist/pink Neck: supple Lungs: Clear to auscultation, Normal respiratory effort, Decreased breath sounds Cardiovascular: Irregular Rhythm, Murmurs (grade 2 systolic) Abdomen: bowel sounds present, soft, no tenderness (Male) Exam: Deferred Extremities: no edema, no calf tenderness, other (venous changes; brownish discoloration to shins/LE bilaterally. No active ulcerations or concerns-- chronic changes.) Peripheral Pulses: 1+: dorsalis pedis (L), dorsalis pedis (R) Skin: warm, dry, intact Neurological: no new focal deficit, normal speech, normal tone Psy/Mental Status: alert, normal affect, normal mood - Problem List & Annotations (1) Postural dizziness with presyncope SNOMED Code(s): 273858505 Code(s): R42 - DIZZINESS AND GIDDINESS; R55 - SYNCOPE AND COLLAPSE Status: Acute Priority: High Current Visit: Yes (2) Orthostatic hypotension SNOMED Code(s): 08230544 Code(s): I95.1 - ORTHOSTATIC HYPOTENSION Status: Acute Priority: High Current Visit: Yes (3) CHF (congestive heart failure) SNOMED Code(s): 75486954 Code(s): I50.9 - HEART FAILURE, UNSPECIFIED Status: Chronic Priority: Medium Current Visit: Yes Qualifiers: Congestive heart failure type: unspecified congestive heart failure type Congestive heart failure chronicity: chronic Qualified Code(s): I50.9 - Heart failure, unspecified (4) CKD (chronic kidney disease) SNOMED Code(s): 095511528 Code(s): N18.9 - CHRONIC KIDNEY DISEASE, UNSPECIFIED Status: Chronic Priority: Medium Current Visit: Yes Qualifiers: Chronic kidney disease stage: stage 3 (moderate) Qualified Code(s): N18.3 - Chronic kidney disease, stage 3 (moderate) (5) Elevated troponin SNOMED Code(s): 586730565, 293590871 Code(s): R74.8 - ABNORMAL LEVELS OF OTHER SERUM ENZYMES Status: Acute Priority: Medium Current Visit: Yes (6) Hypokalemia SNOMED Code(s): 76980604 Code(s): E87.6 - HYPOKALEMIA Status: Acute Priority: High Current Visit : Yes (7) Weakness SNOMED Code(s): 53380078 Code(s): R53.1 - WEAKNESS Status: Chronic Priority: Medium Current Visit: Yes - Problem List Review Problem List Initiated/Reviewed/Updated: Yes - Plan Plan:: Assessment/Plan: Acute: Near Syncope - Multi-factorial - Likely from Orthostasis/polypharmacy Orthostatic Hypotension - BPs: laying 121/75, sitting 100/68 and standing 90/62 mmHg - Risk Factors: Poor Extremity Circulation (lower extremity skin discoloration) and BP meds - DDx: Autonomic Dysfunction - Received adequate hydration in ED Recurrent Falls - Per grand-daughter, usually happens at night when he goes to the bathroom - Risk factors; poor gait and balance, poor lighting, unwanted objects on his pathway, difficulty walking and, ataxia Generalized Weakness- Seems to be Chronic - Likely Multi-factorial - RA alone is a risk factor - Check thyroid and vit D level - PT/OT consult Mild Hypokalemia - K 3.0 - Pharmacy to replete and monitor Elevated BNP Level - Carries a hx/o HF with Unknown EF - BNP is 518 - CXR no acute abnormal findings - Could not find baseline echo - Check with PCP, will repeat if > 6 months -Last echo found in hospital records was 2011 with EF of 60-65%, severely dilated lt atrium, mild aortic and tricuspid valve regurg, mild dilation of aortic root. Repeat echo ordered for today. Elevated Troponin Level - Likely from CKD and A-fib - Would not monitor it, likely chronic Chronic: COPD Chronic A-Fib on warfarin, INR therapeutic level HTN HLD GERD RA BPH CKD Stage 3-4 Hypothyroidism MDD GERD Impaired Vision DM2 Dementia Hx/o Wedge Compression fracture Plan: Admit to Med-Surg w/ Tele Routine AM Labs Resume Home Meds PT/OT consult Fall Precautions CM/SW for d/c planning Plan DC to SNF vs [facility] with HHC/PT in next 48 hours pending progress, if stable. Code status: DNR
[2016-10-24] MEDS: Potassium Chloride 10 MEQ in Premix Bag 1 BAG IV SCH ×4 (07:59→14:05)
[2016-10-24] MEDS: Folic Acid 1 MG Tab PO SCH ×2 (08:02→20:15)
[2016-10-24] MEDS: Acetaminophen 325 MG Tab PO SCH ×2 (08:02→20:17)
[2016-10-24] MEDS: Citalopram 10 MG Tab PO SCH (08:02)
[2016-10-24] MEDS: Potassium Chloride 20 MEQ Tab.ER PO SCH ×3 (08:03→20:17)
[2016-10-24] MEDS: Donepezil 10 MG Tab PO SCH (08:03)
[2016-10-24] MEDS: Furosemide 80 MG Tab PO SCH ×2 (08:03→20:17)
[2016-10-24] MEDS: Aspirin 81 MG Tab.Chew PO SCH (08:03)
--- NOTE | 2016-10-24 08:04 | CR ---
Chest: Two views of the chest were obtained. Comparison: Previous chest x-ray of 10/11/16. Heart is enlarged. Tortuous thoracic aorta is seen. Increased density noted within the left lung base most likely due to chronic atelectasis and possible chronic pleural thickening. I do not see any definite acute infiltrates. Scattered degenerative change is noted within the spine. Impression: 1. Findings which are felt to be fairly stable. Nothing acute is definitely appreciated. Diagnostic code #2
[2016-10-24] MEDS: Digoxin 125 MCG Tab PO SCH (08:06)
[2016-10-24] MEDS: Metoprolol Tartrate 25 MG Tab PO SCH ×2 (08:07→20:17)
[2016-10-24] MEDS: Brimonidine 0.2% Ophth Soln 5 ML Bottle EYEBOTH SCH ×2 (08:08→20:15)
[2016-10-24] MEDS: Bacitracin Oint 15 GM Tube TOP SCH (08:08)
[2016-10-24] MEDS: Magnesium Oxide 400 MG Tab PO SCH ×2 (08:12→20:15)
[2016-10-24] MEDS: Dorzolamide 2% Ophth Soln 10 ML Bottle EYEBOTH SCH ×2 (08:13→20:18)
[2016-10-24] MEDS: Tiotropium Inhaler 18 MCG Inhalation Powder Cap Kit of 5 INH SCH (08:36)
[2016-10-24] MEDS: Formoterol/Mometasone 200-5 MCG 8.8 GM Inhaler IH SCH ×2 (08:37→20:21)
[2016-10-24] MEDS ORDERED: Pantoprazole 40 MG Tab.CR PO SCH (09:00)
[2016-10-24] MEDS ORDERED: Magnesium Oxide 400 MG Tab PO SCH (09:00)
[2016-10-24] MEDS ORDERED: Metolazone 5 MG Tab PO SCH (14:00)
[2016-10-24] MEDS: Warfarin 5 MG Tab PO SCH (17:54)
[2016-10-24] MEDS: Insulin Detemir 100 Units/ML 3 ML Pen SUBCUT SCH (20:13)
[2016-10-24] MEDS: Terazosin 5 MG Cap PO SCH (20:16)
[2016-10-24] MEDS: Rosuvastatin 10 MG Tab PO SCH (20:17)
[2016-10-25] MEDS: Pantoprazole 40 MG Tab.CR PO SCH (06:13)
[2016-10-25] MEDS: Levothyroxine 75 MCG Tab PO SCH (06:13)
[2016-10-25] MEDS: Formoterol/Mometasone 200-5 MCG 8.8 GM Inhaler IH SCH ×2 (08:40→20:37)
[2016-10-25] MEDS: Tiotropium Inhaler 18 MCG Inhalation Powder Cap Kit of 5 INH SCH (08:40)
[2016-10-25] MEDS: Digoxin 125 MCG Tab PO SCH (09:03)
[2016-10-25] MEDS: Dorzolamide 2% Ophth Soln 10 ML Bottle EYEBOTH SCH ×2 (09:06→22:23)
[2016-10-25] MEDS: Citalopram 10 MG Tab PO SCH (09:10)
[2016-10-25] MEDS: Donepezil 10 MG Tab PO SCH (09:11)
[2016-10-25] MEDS: Aspirin 81 MG Tab.Chew PO SCH (09:11)
[2016-10-25] MEDS: Acetaminophen 325 MG Tab PO SCH ×2 (09:11→22:19)
[2016-10-25] MEDS: Furosemide 80 MG Tab PO SCH ×2 (09:12→22:21)
[2016-10-25] MEDS: Potassium Chloride 20 MEQ Tab.ER PO SCH ×3 (09:12→22:21)
[2016-10-25] MEDS: Magnesium Oxide 400 MG Tab PO SCH ×2 (09:12→22:20)
[2016-10-25] MEDS: Folic Acid 1 MG Tab PO SCH ×2 (09:12→22:19)
[2016-10-25] MEDS: Metoprolol Tartrate 25 MG Tab PO SCH (09:12)
[2016-10-25] MEDS: Potassium Chloride 10 MEQ in Premix Bag 1 BAG IV SCH ×4 (09:35→18:03)
[2016-10-25] MEDS: Bacitracin Oint 15 GM Tube TOP SCH (09:36)
[2016-10-25] MEDS: Brimonidine 0.2% Ophth Soln 5 ML Bottle EYEBOTH SCH ×2 (09:37→22:23)
[2016-10-25] MEDS: Doxycycline 100 MG Cap PO SCH ×2 (13:20→22:23)
--- NOTE | 2016-10-25 13:26 | PCM.PN ---
- General Info Date of Service: 10/25/16 Admission Dx/Problem (Free Text): Admission Diagnosis/Problem Admission Diagnosis/Problem Hypovolemia Hypotension Terence is seen this morning sitting up in chair, just finished breakfast. Much more alert today. States slept well. Denies c/o pain, no CP, SOB, dizziness or headache, no back or abd pain. Coughing this morning. Continues to feel weak, does not feel strength is improved, continues to work with therapies. Functional Status: Reports: pain controlled, tolerating diet, ambulating, urinating. Denies: new symptoms - Review of Systems General: Reports: Weakness, Fatigue HEENT: Reports: no symptoms Pulmonary: Reports: cough Cardiovascular: Reports: No Symptoms Gastrointestinal: Reports: No symptoms Genitourinary: Reports: no symptoms Musculoskeletal: Reports: other (generalized weakness) Neurological: Reports: No Symptoms Psychiatric: Reports: no symptoms - Patient Data Vitals - most recent: Last Vital Signs Temp 97.7 F 10/25/16 09:07 Pulse 75 10/25/16 09:12 Resp 16 10/25/16 09:07 BP 112/70 10/25/16 09:12 Pulse Ox 98 10/25/16 09:07 Weight - most recent: 185 lb 1.6 oz I&O - last 24 hours: Intake & Output 10/24/16 10/25/16 10/25/16 22:59 06:59 14:59 Intake Total 2080 500 Output Total 350 400 Balance 1730 100 Lab Results last 24 hrs: Laboratory Results - last 24 hr 10/24/16 10/25/16 10/25/16 Range/Units 20:12 07:30 07:31 WBC 4.24 (4.23-9.07) K/mm3 RBC 3.82 L (4.63-6.08) M/mm3 Hgb 12.5 L (13.7-17.5) gm/L Hct 36.7 L (40.1-51.0) % MCV 96.1 H (79.0-92.2) fl MCH 32.7 H (25.7-32.2) pg MCHC 34.1 (32.2-35.5) g/dl RDW Std Deviation 54.4 H (35.1-43.9) fL Plt Count 200 (163-337) K/mm3 MPV 9.8 (9.4-12.3) fl Neut % (Auto) 49.5 (34.0-67.9) % Lymph % (Auto) 28.8 (21.8-53.1) % [place] % (Auto) 20.5 H (5.3-12.2) % Eos % (Auto) 0.7 L (0.8-7.0) Baso % (Auto) 0.5 (0.1-1.2) % Neut # 2.10 (1.78-5.38) K/mm3 Lymph # 1.22 L (1.32-3.57) K/mm3 [place] # 0.87 H (0.30-0.82) K/mm3 Eos # 0.03 L (0.04-0.54) K/mm3 Baso # 0.02 (0.01-0.08) K/mm3 Manual Slide Review Normal smear PT (8.0-13.0) SECONDS INR Sodium (136-145) mEq/L Potassium (3.5-5.1) mEq/L Chloride (98-107) mEq/L Carbon Dioxide (21-32) mEq/L Anion Gap (5-15) BUN (7-18) mg/dL Creatinine (0.7-1.3) mg/dL Est Cr Clr Drug Dosing mL/min Estimated GFR (MDRD) (>60) mL/min BUN/Creatinine Ratio (14-18) Glucose (83-115) mg/dL POC Glucose 236 H (83-110) mg/dL Calcium (8.5-10.1) mg/dL Magnesium (1.8-2.4) mg/dl Digoxin 1.2 (0.9-2.0) ng/mL 10/25/16 10/25/16 10/25/16 Range/Units 07:31 07:31 11:04 WBC (4.23-9.07) K/mm3 RBC (4.63-6.08) M/mm3 Hgb (13.7-17.5) gm/L Hct (40.1-51.0) % MCV (79.0-92.2) fl MCH (25.7-32.2) pg MCHC (32.2-35.5) g/dl RDW Std Deviation (35.1-43.9) fL Plt Count (163-337) K/mm3 MPV (9.4-12.3) fl Neut % (Auto) (34.0-67.9) % Lymph % (Auto) (21.8-53.1) % [place] % (Auto) (5.3-12.2) % Eos % (Auto) (0.8-7.0) Baso % (Auto) (0.1-1.2) % Neut # (1.78-5.38) K/mm3 Lymph # (1.32-3.57) K/mm3 [place] # (0.30-0.82) K/mm3 Eos # (0.04-0.54) K/mm3 Baso # (0.01-0.08) K/mm3 Manual Slide Review PT 46.2 H (8.0-13.0) SECONDS INR 3.89 Sodium 137 (136-145) mEq/L Potassium 2.5 L (3.5-5.1) mEq/L Chloride 101 (98-107) mEq/L Carbon Dioxide 27 (21-32) mEq/L Anion Gap 11.5 (5-15) BUN 44 H (7-18) mg/dL Creatinine 2.1 H (0.7-1.3) mg/dL Est Cr Clr Drug Dosing 25.59 mL/min Estimated GFR (MDRD) 30 (>60) mL/min BUN/Creatinine Ratio 21.0 H (14-18) Glucose 99 (83-115) mg/dL POC Glucose 244 H (83-110) mg/dL Calcium 8.1 L (8.5-10.1) mg/dL Magnesium 1.9 (1.8-2.4) mg/dl Digoxin (0.9-2.0) ng/mL [place] Results last 24 hrs: Microbiology 10/23/16 16:45 Throat Culture - Final Throat (Mrsa) Staphylococcus Aureus 10/23/16 19:35 Gram Stain - Final Sputum - Expectorated Sputum Culture - Final (Mrsa) Staphylococcus Aureus 10/23/16 14:45 Urine Culture - Final Urine, Clean Catch NO GROWTH AFTER 2 DAYS Med Orders - Current: Current Medications Acetaminophen (Tylenol) 650 mg PO Q4H PRN PRN Reason: Pain (Mild 1-3)/fever Acetaminophen (Tylenol) 650 mg PO BID [facility] Last Admin: 10/25/16 09:11 Dose: 650 mg Acetaminophen/Hydrocodone Bitart ([place] 325-5 Mg) 1 tab PO Q4H PRN PRN Reason: Pain (moderate 4-6) Albuterol (Proventil Neb Soln) 2.5 mg NEB TID PRN PRN Reason: Shortness of Breath Albuterol/Ipratropium (Duoneb 3.0-0.5 Mg/3 Ml) 3 ml NEB QIDRT COUNT INCLUDES THE [facility] Aspirin (Aspirin) 81 mg PO DAILY COUNT INCLUDES THE [facility] Last Admin: 10/25/16 09:11 Dose: 81 mg Azathioprine (Imuran) 100 mg PO BID COUNT INCLUDES THE [facility] Last Admin: 10/25/16 10:03 Dose: 100 mg Bacitracin (Bacitracin Oint) 0 gm TOP DAILY COUNT INCLUDES THE [facility] Last Admin: 10/25/16 09:36 Dose: 1 applic Bisacodyl (Dulcolax) 5 mg PO DAILY PRN PRN Reason: Constipation Brimonidine Tartrate (Alphagan 0.2% Ophth Soln) 0 ml EYEBOTH BID COUNT INCLUDES THE [facility] Last Admin: 10/25/16 09:37 Dose: 1 drop Citalopram Hydrobromide (Celexa) 20 mg PO DAILY COUNT INCLUDES THE [facility] Last Admin: 10/25/16 09:10 Dose: 20 mg Digoxin (Lanoxin) 125 mcg PO DAILY COUNT INCLUDES THE [facility] Last Admin: 10/25/16 09:03 Dose: 125 mcg Donepezil HCl (Aricept) 5 mg PO DAILY COUNT INCLUDES THE [facility] Last Admin: 10/25/16 09:11 Dose: 5 mg Dorzolamide HCl (Trusopt 2% Ophth Soln) 0 ml EYEBOTH BID COUNT INCLUDES THE [facility] Last Admin: 10/25/16 09:06 Dose: Not Given Doxycycline Hyclate (Vibramycin) 100 mg PO BID COUNT INCLUDES THE [facility] Stop: 10/25/16 21:01 Last Admin: 10/25/16 13:20 Dose: 100 mg Doxycycline Hyclate (Vibramycin) 100 mg PO DAILY COUNT INCLUDES THE [facility] Folic Acid (Folic Acid) 1 mg PO BID COUNT INCLUDES THE [facility] Last Admin: 10/25/16 09:12 Dose: 1 mg Furosemide (Lasix) 80 mg PO BID COUNT INCLUDES THE [facility] Last Admin: 10/25/16 09:12 Dose: 80 mg Guaifenesin (Mucinex) 600 mg PO TID PRN PRN Reason: Cough Hydromorphone HCl (Dilaudid) 0.25 mg IVPUSH Q2H PRN PRN Reason: Pain (severe 7-10) Promethazine HCl 12.5 mg/ (Sodium Chloride) 50.5 mls @ 100 mls/hr IV Q6H PRN PRN Reason: Nausea/Vomiting Vancomycin HCl 1 gm/ Sodium (Chloride) 250 mls @ 250 mls/hr IV Q24H COUNT INCLUDES THE [facility] Insulin Detemir (Levemir) 8 unit SUBCUT BEDTIME COUNT INCLUDES THE [facility] Last Admin: 10/24/16 20:13 Dose: 8 units Levothyroxine Sodium (Levothyroxine) 75 mcg PO ACBREAKFAST COUNT INCLUDES THE [facility] Last Admin: 10/25/16 06:13 Dose: 75 mcg Lorazepam (Ativan) 0.5 mg IV Q6H PRN PRN Reason: Anxiety Magnesium Oxide (Magnesium Oxide) 400 mg PO BID COUNT INCLUDES [facility] Last Admin: 10/25/16 09:12 Dose: 400 mg Magnesium Sulfate (Pharmacy To Dose - Magnesium Replacement) 1 dose .XX ASDIRECTED COUNT INCLUDES THE [facility] Metolazone (Zaroxolyn) 5 mg PO MOTH COUNT INCLUDES THE [facility] Last Admin: 10/24/16 14:14 Dose: 5 mg Metoprolol Succinate (Toprol Xl) 25 mg PO DAILY COUNT INCLUDES THE [facility] Mometasone Furoate/Formoterol Fumar (Dulera 200-5 Mcg) 0 puff IH BID COUNT INCLUDES THE [facility] Last Admin: 10/25/16 08:40 Dose: 2 puff Ondansetron HCl (Zofran) 4 mg IV Q6H PRN PRN Reason: Nausea/Vomiting Pantoprazole Sodium (Protonix) 40 mg PO DAILY@0700 COUNT INCLUDES [facility] Last Admin: 10/25/16 06:13 Dose: 40 mg Polyethylene Glycol (Miralax) 17 gm PO DAILY PRN PRN Reason: Constipation Potassium Chloride (Klor-Con M20) 20 meq PO TID COUNT INCLUDES [facility] Last Admin: 10/25/16 09:12 Dose: 20 meq Potassium Chloride (Pharmacy To Dose - Potassium Replacement) 1 dose .XX ASDIRECTED COUNT INCLUDES THE [facility] Rosuvastatin Calcium (Crestor) 5 mg PO BEDTIME COUNT INCLUDES THE [facility] Last Admin: 10/24/16 20:17 Dose: 5 mg Senna (Senna) 8.6 mg PO DAILY PRN PRN Reason: Constipation Senna/Docusate Sodium (Senna Plus) 1 tab PO BID PRN PRN Reason: Constipation Sodium Chloride (Saline Flush) 10 ml FLUSH ASDIRECTED PRN PRN Reason: Keep Vein Open Last Admin: 10/23/16 12:05 Dose: 10 ml Terazosin HCl (Hytrin) 10 mg PO BEDTIME COUNT INCLUDES [facility] Last Admin: 10/24/16 20:16 Dose: 10 mg Tiotropium [place] (Spiriva Handihaler) 18 mcg INH DAILY COUNT INCLUDES THE [facility] Last Admin: 10/25/16 08:40 Dose: 1 cap Warfarin Sodium (Coumadin) 7.5 mg PO MOWEFR COUNT INCLUDES THE [facility] Last Admin: 10/23/16 17:03 Dose: 7.5 mg Warfarin Sodium (Coumadin) 5 mg PO SUTUTHSA COUNT INCLUDES THE [facility] Last Admin: 10/24/16 17:54 Dose: 5 mg Discontinued Medications Albuterol/Ipratropium (Duoneb 3.0-0.5 Mg/3 Ml) 3 ml NEB Q4H PRN PRN Reason: Shortness Of Breath/wheezing Albuterol/Ipratropium (Duoneb 3.0-0.5 Mg/3 Ml) 3 ml NEB QID COUNT INCLUDES THE [facility] Sodium Chloride (Normal Saline) 500 mls @ 250 mls/hr IV .BOLUS ONE Stop: 10/23/16 13:47 Last Admin: 10/23/16 12:04 Dose: 250 mls/hr Sodium Chloride (Normal Saline) 250 mls @ 250 mls/hr IV .BOLUS ONE Stop: 10/23/16 12:47 Last Admin: 10/23/16 17:03 Dose: Not Given Potassium Chloride 10 meq/ (Premix) 100 mls @ 100 mls/hr IV Q1H COUNT INCLUDES THE [facility] Stop: 10/24/16 11:29 Last Admin: 10/24/16 14:05 Dose: 100 mls/hr Potassium Chloride 10 meq/ (Premix) 100 mls @ 100 mls/hr IV Q1H COUNT INCLUDES THE [facility] Stop: 10/25/16 12:29 Last Admin: 10/25/16 13:20 Dose: 50 mls/hr Magnesium Oxide (Magnesium Oxide) 400 mg PO DAILY COUNT INCLUDES THE [facility] Metoprolol Tartrate (Lopressor) 25 mg PO Q12HR COUNT INCLUDES THE [facility] Last Admin: 10/25/16 09:12 Dose: 25 mg Non-Formulary Medication (Blood Sugar Diagnostic [Blood Glucose Test]) 1 strip SUBCUT Q48H COUNT INCLUDES THE [facility] Last Admin: 10/23/16 16:21 Dose: Not Given Non-Formulary Medication (Lancets [Accu-Chek]) 1 strip SUBCUT Q48H COUNT INCLUDES THE [facility] Last Admin: 10/23/16 16:21 Dose: Not Given Pantoprazole Sodium (Protonix) 40 mg PO DAILY COUNT INCLUDES THE [facility] Last Admin: 10/24/16 08:02 Dose: 40 mg - Exam Quality Assessment: DVT prophylaxis General: alert, oriented, cooperative, no acute distress HEENT: Pupils equal, Pupils reactive, EOMI, Mucous membr. moist/pink, Other ( raspy voice ) Neck: supple Lungs: Normal respiratory effort, Decreased breath sounds, Rhonchi (throughout - lt >rt), Wheezing (expiratory) Cardiovascular: Irregular Rhythm Abdomen: bowel sounds present, soft, no tenderness (Male) Exam: Deferred Back Exam: normal inspection Extremities: edema (trace to minimal at ankles) Peripheral Pulses: 1+: dorsalis pedis (L), dorsalis pedis (R) Skin: warm, dry Wound/Incisions: dressing dry and intact Neurological: no new focal deficit Psy/Mental Status: alert, normal affect, normal mood - Problem List & Annotations (1) Postural dizziness with presyncope SNOMED Code(s): 956592763 Code(s): R42 - DIZZINESS AND GIDDINESS; R55 - SYNCOPE AND COLLAPSE Status: Acute Priority: High Current Visit: Yes (2) Orthostatic hypotension SNOMED Code(s): 52234958 Code(s): I95.1 - ORTHOSTATIC HYPOTENSION Status: Acute Priority: High Current Visit: Yes (3) CHF (congestive heart failure) SNOMED Code(s): 59591660 Code(s): I50.9 - HEART FAILURE, UNSPECIFIED Status: Chronic Priority: Medium Current Visit: Yes Qualifiers: Congestive heart failure type: unspecified congestive heart failure type Congestive heart failure chronicity: chronic Qualified Code(s): I50.9 - Heart failure, unspecified (4) CKD (chronic kidney disease) SNOMED Code(s): 781373104 Code(s): N18.9 - CHRONIC KIDNEY DISEASE, UNSPECIFIED Status: Chronic Priority: Medium Current Visit: Yes Qualifiers: Chronic kidney disease stage: stage 3 (moderate) Qualified Code(s): N18.3 - Chronic kidney disease, stage 3 (moderate) (5) Elevated troponin SNOMED Code(s): 628707104, 730148518 Code(s): R74.8 - ABNORMAL LEVELS OF OTHER SERUM ENZYMES Status: Acute Priority: Medium Current Visit: Yes (6) Hypokalemia SNOMED Code(s): 29611060 Code(s): E87.6 - HYPOKALEMIA Status: Acute Priority: High Current Visit : Yes (7) Weakness SNOMED Code(s): 12632979 Code(s): R53.1 - WEAKNESS Status: Chronic Priority: Medium Current Visit: Yes (8) MRSA (methicillin resistant staph aureus) culture positive SNOMED Code(s): 581010600, 425828942 Code(s): Z22.322 - CARRIER OR SUSPECTED CARRIER OF METHICILLIN RESIS STAPH Status: Acute Current Visit: Yes Annotation/Comment:: sputum and throat cultures + - Problem List Review Problem List Initiated/Reviewed/Updated: Yes - My Orders Last 24 Hours: My Active Orders 10/25/16 13:15 Chest 2V [CR] Stat Vancomycin 1 gm Sodium Chloride 0.9% [Normal Saline] 250 ml IV Q24H 10/25/16 13:16 Acapella [RT Chest Physiotherapy] [RC] Q2HWA RT Aerosol Therapy [RC] ASDIRECTED RT Incentive Spirometry [RC] Q2HWA 10/25/16 13:20 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 Evaluation and Treatment [CONS] Routine 10/25/16 16:00 Albuterol/Ipratropium [DuoNeb 3.0-0.5 MG/3 ML] 3 ml NEB QIDRT 10/26/16 09:00 Metoprolol Succinate [Toprol XL] 25 mg PO DAILY - Plan Plan:: Assessment/Plan: Acute: Near Syncope - Multi-factorial - Likely from Orthostasis/polypharmacy Orthostatic Hypotension-- improved - BPs: laying 121/75, sitting 100/68 and standing 90/62 mmHg - Risk Factors: Poor Extremity Circulation (lower extremity skin discoloration) and BP meds - DDx: Autonomic Dysfunction - Received adequate hydration in ED Recurrent Falls - Per grand-daughter, usually happens at night when he goes to the bathroom - Risk factors; poor gait and balance, poor lighting, unwanted objects on his pathway, difficulty walking and, ataxia Generalized Weakness- Seems to be Chronic - Likely Multi-factorial - RA alone is a risk factor - Check thyroid and vit D level - PT/OT consult Mild Hypokalemia - K 3.0--continues to be low--2.5 this am; did receive metolazone dose yesterday (home dose scheduled fri and ) - Pharmacy to replete and monitor - Mag level 1.9 today- cont to follow level - Follow am labs Elevated BNP Level - Carries a hx/o HF - BNP is 518 - CXR no acute abnormal findings--clinically not in exacerbation - Could not find baseline echo - Check with PCP, will repeat if > 6 months -Last echo found in hospital records was 2011 with EF of 60-65%, severely dilated lt atrium, mild aortic and tricuspid valve regurg, mild dilation of aortic root. Repeat echo ordered - results pending Elevated Troponin Level - Likely from CKD and A-fib - Would not monitor it, likely chronic URI with cough, sore thoat -Throat culture with + MRSA -Sputum culture with + MRSA -Started on doxycycline PO -Will obtain repeat CXR today -RT, nebs, IS, acapella Chronic: COPD Chronic A-Fib on warfarin, INR therapeutic level HTN- was hypotensive on admit, stable now HLD GERD RA BPH CKD Stage 3-4 Hypothyroidism- TSH MDD GERD Impaired Vision DM2- sugars stable Dementia Hx/o Wedge Compression fracture Plan: Admit to Med-Surg w/ Tele Routine AM Labs Resume Home Meds PT/OT consult Fall Precautions CM/SW for d/c planning Plan DC to SNF vs [facility] with HHC/PT in next 24-48 hours pending progress, if stable. LOS may be > 96 hours due to complexity of case, cont monitoring of electrolytes, low K+ despite replacement, pending CXR today. Code status: DNR
[2016-10-25] MEDS: Albuterol/Ipratropium 3.0-0.5 MG/3 ML Neb Soln NEB SCH ×2 (15:46→20:37)
--- NOTE | 2016-10-25 16:08 | CR ---
Chest: 2 views of the chest were obtained. Comparison: Previous chest x-ray of 10/23/16. Heart size is normal. Tortuous thoracic aorta is seen. Better aeration of the left lung base is seen from prior exam. No acute infiltrates are seen. Degenerative spurring is noted within the spine. Coronary artery calcification is seen. Impression: 1. Incidental findings. Nothing acute is definitely seen. Diagnostic code #2
[2016-10-25] MEDS ORDERED: Albuterol/Ipratropium 3.0-0.5 MG/3 ML Neb Soln NEB SCH (17:00)
[2016-10-25] MEDS: Warfarin 7.5 MG Tab PO SCH (17:13)
[2016-10-25] MEDS: Terazosin 5 MG Cap PO SCH (22:16)
[2016-10-25] MEDS: Rosuvastatin 10 MG Tab PO SCH (22:21)
[2016-10-25] MEDS: Insulin Detemir 100 Units/ML 3 ML Pen SUBCUT SCH (22:22)
[2016-10-26] MEDS: Albuterol/Ipratropium 3.0-0.5 MG/3 ML Neb Soln NEB SCH ×4 (06:09→21:47)
[2016-10-26] MEDS: Levothyroxine 75 MCG Tab PO SCH (06:27)
[2016-10-26] MEDS: Pantoprazole 40 MG Tab.CR PO SCH (06:27)
--- NOTE | 2016-10-26 09:13 | PCM.PN ---
- General Info Date of Service: 10/26/16 Admission Dx/Problem (Free Text): Admission Diagnosis/Problem Admission Diagnosis/Problem Hypovolemia and Hypotension Subjective Update: Follow Up Functional Status: Reports: pain controlled, tolerating diet, ambulating, urinating. Denies: new symptoms - Review of Systems General: Denies: Fever, Weakness, Fatigue, Malaise, Chills HEENT: Reports: no symptoms Pulmonary: Denies: shortness of breath Cardiovascular: Denies: Chest Pain Gastrointestinal: Denies: Abdominal pain, Nausea, Vomiting Genitourinary: Reports: no symptoms Musculoskeletal: Reports: no symptoms Skin: Denies: cyanosis, pallor Neurological: Reports: Difficulty Walking, Gait Disturbance. Denies: Confusion , Dizziness Psychiatric: Denies: depression, anxiety, agitation, hallucinations Systems Review Comment:: No overnight or acute issues. He is doing relatively well. He has no new complaints. His vitals are fairly stable. - Patient Data Vitals - most recent: Last Vital Signs Temp 36.6 C 10/26/16 04:34 Pulse 58 L 10/26/16 04:34 Resp 18 10/26/16 04:34 BP 123/43 L 10/26/16 04:34 Pulse Ox 95 10/26/16 06:44 Weight - most recent: 84.187 kg I&O - last 24 hours: Intake & Output 10/25/16 10/26/16 10/26/16 22:59 06:59 14:59 Intake Total 1510 1110 Output Total 700 600 Balance 810 510 Lab Results last 24 hrs: Laboratory Results - last 24 hr 10/25/16 10/25/16 10/25/16 Range/Units 07:30 11:04 15:45 WBC (4.23-9.07) K/mm3 RBC (4.63-6.08) M/mm3 Hgb (13.7-17.5) gm/L Hct (40.1-51.0) % MCV (79.0-92.2) fl MCH (25.7-32.2) pg MCHC (32.2-35.5) g/dl RDW Std Deviation (35.1-43.9) fL Plt Count (163-337) K/mm3 MPV (9.4-12.3) fl Neut % (Auto) (34.0-67.9) % Lymph % (Auto) (21.8-53.1) % [place] % (Auto) (5.3-12.2) % Eos % (Auto) (0.8-7.0) Baso % (Auto) (0.1-1.2) % Neut # (1.78-5.38) K/mm3 Lymph # (1.32-3.57) K/mm3 [place] # (0.30-0.82) K/mm3 Eos # (0.04-0.54) K/mm3 Baso # (0.01-0.08) K/mm3 Manual Slide Review PT (8.0-13.0) SECONDS INR Sodium (136-145) mEq/L Potassium (3.5-5.1) mEq/L Chloride (98-107) mEq/L Carbon Dioxide (21-32) mEq/L Anion Gap (5-15) BUN (7-18) mg/dL Creatinine (0.7-1.3) mg/dL Est Cr Clr Drug Dosing mL/min Estimated GFR (MDRD) (>60) mL/min BUN/Creatinine Ratio (14-18) Glucose (83-115) mg/dL POC Glucose 244 H (83-110) mg/dL Calcium (8.5-10.1) mg/dL Magnesium (1.8-2.4) mg/dl C-Reactive Protein 4.4 H* (<1.0) mg/dL Digoxin 1.2 (0.9-2.0) ng/mL 10/25/16 10/26/16 10/26/16 Range/Units 22:18 05:47 05:47 WBC 4.13 L (4.23-9.07) K/mm3 RBC 3.88 L (4.63-6.08) M/mm3 Hgb 12.4 L (13.7-17.5) gm/L Hct 37.6 L (40.1-51.0) % MCV 96.9 H (79.0-92.2) fl MCH 32.0 (25.7-32.2) pg MCHC 33.0 (32.2-35.5) g/dl RDW Std Deviation 54.9 H (35.1-43.9) fL Plt Count 192 (163-337) K/mm3 MPV 9.5 (9.4-12.3) fl Neut % (Auto) 50.7 (34.0-67.9) % Lymph % (Auto) 31.0 (21.8-53.1) % [place] % (Auto) 17.2 H (5.3-12.2) % Eos % (Auto) 0.7 L (0.8-7.0) Baso % (Auto) 0.2 (0.1-1.2) % Neut # 2.09 (1.78-5.38) K/mm3 Lymph # 1.28 L (1.32-3.57) K/mm3 [place] # 0.71 (0.30-0.82) K/mm3 Eos # 0.03 L (0.04-0.54) K/mm3 Baso # 0.01 (0.01-0.08) K/mm3 Manual Slide Review Normal smear PT (8.0-13.0) SECONDS INR Sodium 138 (136-145) mEq/L Potassium 2.9 L (3.5-5.1) mEq/L Chloride 100 (98-107) mEq/L Carbon Dioxide 32 (21-32) mEq/L Anion Gap 8.9 (5-15) BUN 45 H (7-18) mg/dL Creatinine 2.1 H (0.7-1.3) mg/dL Est Cr Clr Drug Dosing 25.59 mL/min Estimated GFR (MDRD) 30 (>60) mL/min BUN/Creatinine Ratio 21.4 H (14-18) Glucose 136 H (83-115) mg/dL POC Glucose 164 H (83-110) mg/dL Calcium 8.3 L (8.5-10.1) mg/dL Magnesium 1.9 (1.8-2.4) mg/dl C-Reactive Protein (<1.0) mg/dL Digoxin (0.9-2.0) ng/mL 10/26/16 10/26/16 Range/Units 05:47 05:47 WBC (4.23-9.07) K/mm3 RBC (4.63-6.08) M/mm3 Hgb (13.7-17.5) gm/L Hct (40.1-51.0) % MCV (79.0-92.2) fl MCH (25.7-32.2) pg MCHC (32.2-35.5) g/dl RDW Std Deviation (35.1-43.9) fL Plt Count (163-337) K/mm3 MPV (9.4-12.3) fl Neut % (Auto) (34.0-67.9) % Lymph % (Auto) (21.8-53.1) % [place] % (Auto) (5.3-12.2) % Eos % (Auto) (0.8-7.0) Baso % (Auto) (0.1-1.2) % Neut # (1.78-5.38) K/mm3 Lymph # (1.32-3.57) K/mm3 [place] # (0.30-0.82) K/mm3 Eos # (0.04-0.54) K/mm3 Baso # (0.01-0.08) K/mm3 Manual Slide Review PT 45.8 H (8.0-13.0) SECONDS INR 3.86 Sodium (136-145) mEq/L Potassium (3.5-5.1) mEq/L Chloride (98-107) mEq/L Carbon Dioxide (21-32) mEq/L Anion Gap (5-15) BUN (7-18) mg/dL Creatinine (0.7-1.3) mg/dL Est Cr Clr Drug Dosing mL/min Estimated GFR (MDRD) (>60) mL/min BUN/Creatinine Ratio (14-18) Glucose (83-115) mg/dL POC Glucose (83-110) mg/dL Calcium (8.5-10.1) mg/dL Magnesium (1.8-2.4) mg/dl C-Reactive Protein 0.9 (<1.0) mg/dL Digoxin (0.9-2.0) ng/mL [place] Results last 24 hrs: Microbiology 10/23/16 16:45 Throat Culture - Final Throat (Mrsa) Staphylococcus Aureus 10/23/16 19:35 Gram Stain - Final Sputum - Expectorated Sputum Culture - Final (Mrsa) Staphylococcus Aureus 10/23/16 14:45 Urine Culture - Final Urine, Clean Catch NO GROWTH AFTER 2 DAYS Med Orders - Current: Current Medications Acetaminophen (Tylenol) 650 mg PO Q4H PRN PRN Reason: Pain (Mild 1-3)/fever Acetaminophen (Tylenol) 650 mg PO BID [facility] Last Admin: 10/25/16 22:19 Dose: 650 mg Acetaminophen/Hydrocodone Bitart ([place] 325-5 Mg) 1 tab PO Q4H PRN PRN Reason: Pain (moderate 4-6) Albuterol (Proventil Neb Soln) 2.5 mg NEB TID PRN PRN Reason: Shortness of Breath Albuterol/Ipratropium (Duoneb 3.0-0.5 Mg/3 Ml) 3 ml NEB QIDRT [facility] Last Admin: 10/26/16 06:09 Dose: 3 ml Aspirin (Aspirin) 81 mg PO DAILY [facility] Last Admin: 10/25/16 09:11 Dose: 81 mg Azathioprine (Imuran) 100 mg PO BID [facility] Last Admin: 10/25/16 22:34 Dose: 100 mg Bacitracin (Bacitracin Oint) 0 gm TOP DAILY [facility] Last Admin: 10/25/16 09:36 Dose: 1 applic Bisacodyl (Dulcolax) 5 mg PO DAILY PRN PRN Reason: Constipation Brimonidine Tartrate (Alphagan 0.2% Ophth Soln) 0 ml EYEBOTH BID [facility] Last Admin: 10/25/16 22:23 Dose: 1 drop Citalopram Hydrobromide (Celexa) 20 mg PO DAILY [facility] Last Admin: 10/25/16 09:10 Dose: 20 mg Digoxin (Lanoxin) 125 mcg PO DAILY [facility] Last Admin: 10/25/16 09:03 Dose: 125 mcg Donepezil HCl (Aricept) 5 mg PO DAILY [facility] Last Admin: 10/25/16 09:11 Dose: 5 mg Dorzolamide HCl (Trusopt 2% Ophth Soln) 0 ml EYEBOTH BID [facility] Last Admin: 10/25/16 22:23 Dose: Not Given Doxycycline Hyclate (Vibramycin) 100 mg PO DAILY [facility] Folic Acid (Folic Acid) 1 mg PO BID [facility] Last Admin: 10/25/16 22:19 Dose: 1 mg Furosemide (Lasix) 80 mg PO BID [facility] Last Admin: 10/25/16 22:21 Dose: 80 mg Guaifenesin (Mucinex) 600 mg PO TID PRN PRN Reason: Cough Hydromorphone HCl (Dilaudid) 0.25 mg IVPUSH Q2H PRN PRN Reason: Pain (severe 7-10) Promethazine HCl 12.5 mg/ (Sodium Chloride) 50.5 mls @ 100 mls/hr IV Q6H PRN PRN Reason: Nausea/Vomiting Insulin Detemir (Levemir) 8 unit SUBCUT BEDTIME [facility] Last Admin: 10/25/16 22:22 Dose: 8 units Levothyroxine Sodium (Levothyroxine) 75 mcg PO ACBREAKFAST [facility] Last Admin: 10/26/16 06:27 Dose: 75 mcg Lorazepam (Ativan) 0.5 mg IV Q6H PRN PRN Reason: Anxiety Magnesium Oxide (Magnesium Oxide) 400 mg PO BID [facility] Last Admin: 10/25/16 22:20 Dose: 400 mg Magnesium Sulfate (Pharmacy To Dose - Magnesium Replacement) 1 dose .XX ASDIRECTED [facility] Metolazone (Zaroxolyn) 5 mg PO MOTH [facility] Last Admin: 10/24/16 14:14 Dose: 5 mg Metoprolol Succinate (Toprol Xl) 25 mg PO DAILY [facility] Mometasone Furoate/Formoterol Fumar (Dulera 200-5 Mcg) 0 puff IH BID [facility] Last Admin: 10/25/16 20:37 Dose: 2 puff Ondansetron HCl (Zofran) 4 mg IV Q6H PRN PRN Reason: Nausea/Vomiting Pantoprazole Sodium (Protonix) 40 mg PO DAILY@0700 [facility] Last Admin: 10/26/16 06:27 Dose: 40 mg Polyethylene Glycol (Miralax) 17 gm PO DAILY PRN PRN Reason: Constipation Potassium Chloride (Klor-Con M20) 20 meq PO TID [facility] Last Admin: 10/25/16 22:21 Dose: 20 meq Potassium Chloride (Pharmacy To Dose - Potassium Replacement) 1 dose .XX ASDIRECTED [facility] Potassium Chloride (Klor-Con M20) 20 meq PO Q3H [facility] Stop: 10/26/16 14:31 Rosuvastatin Calcium (Crestor) 5 mg PO BEDTIME [facility] Last Admin: 10/25/16 22:21 Dose: 5 mg Senna (Senna) 8.6 mg PO DAILY PRN PRN Reason: Constipation Senna/Docusate Sodium (Senna Plus) 1 tab PO BID PRN PRN Reason: Constipation Sodium Chloride (Saline Flush) 10 ml FLUSH ASDIRECTED PRN PRN Reason: Keep Vein Open Last Admin: 10/23/16 12:05 Dose: 10 ml Terazosin HCl (Hytrin) 10 mg PO BEDTIME [facility] Last Admin: 10/25/16 22:16 Dose: 10 mg Tiotropium [place] (Spiriva Handihaler) 18 mcg INH DAILY [facility] Last Admin: 10/25/16 08:40 Dose: 1 cap Warfarin Sodium (Coumadin) 7.5 mg PO MOWEFR [facility] Last Admin: 10/25/16 17:13 Dose: Not Given Warfarin Sodium (Coumadin) 5 mg PO SUTUTHSA [facility] Last Admin: 10/24/16 17:54 Dose: 5 mg Discontinued Medications Albuterol/Ipratropium (Duoneb 3.0-0.5 Mg/3 Ml) 3 ml NEB Q4H PRN PRN Reason: Shortness Of Breath/wheezing Albuterol/Ipratropium (Duoneb 3.0-0.5 Mg/3 Ml) 3 ml NEB QID [facility] Doxycycline Hyclate (Vibramycin) 100 mg PO BID [facility] Stop: 10/25/16 21:01 Last Admin: 10/25/16 22:23 Dose: 100 mg Sodium Chloride (Normal Saline) 500 mls @ 250 mls/hr IV .BOLUS ONE Stop: 10/23/16 13:47 Last Admin: 10/23/16 12:04 Dose: 250 mls/hr Sodium Chloride (Normal Saline) 250 mls @ 250 mls/hr IV .BOLUS ONE Stop: 10/23/16 12:47 Last Admin: 10/23/16 17:03 Dose: Not Given Potassium Chloride 10 meq/ (Premix) 100 mls @ 100 mls/hr IV Q1H [facility] Stop: 10/24/16 11:29 Last Admin: 10/24/16 14:05 Dose: 100 mls/hr Potassium Chloride 10 meq/ (Premix) 100 mls @ 100 mls/hr IV Q1H [facility] Stop: 10/25/16 12:29 Last Admin: 10/25/16 18:03 Dose: 50 mls/hr Vancomycin HCl 1 gm/ Sodium (Chloride) 250 mls @ 250 mls/hr IV Q24H [facility] Last Admin: 10/25/16 15:53 Dose: Not Given Magnesium Oxide (Magnesium Oxide) 400 mg PO DAILY [facility] Metoprolol Tartrate (Lopressor) 25 mg PO Q12HR [facility] Last Admin: 10/25/16 09:12 Dose: 25 mg Non-Formulary Medication (Blood Sugar Diagnostic [Blood Glucose Test]) 1 strip SUBCUT Q48H [facility] Last Admin: 10/23/16 16:21 Dose: Not Given Non-Formulary Medication (Lancets [Accu-Chek]) 1 strip SUBCUT Q48H [facility] Last Admin: 10/23/16 16:21 Dose: Not Given Pantoprazole Sodium (Protonix) 40 mg PO DAILY [facility] Last Admin: 10/24/16 08:02 Dose: 40 mg - Exam General: alert, cooperative, no acute distress HEENT: Pupils equal, Pupils reactive, EOMI, Mucous membr. moist/pink Neck: supple, trachea midline, no JVD Lungs: Normal respiratory effort, Decreased breath sounds Cardiovascular: Irregular Rhythm Abdomen: bowel sounds present, soft, no tenderness, no distension (Male) Exam: Deferred Back Exam: normal inspection, decreased range of motion Extremities: normal pulses, no tenderness/swelling, no clubbing, no cyanosis, no calf tenderness, edema, other (hyperpigmentation on b/l lower extremity) Peripheral Pulses: 2+: dorsalis pedis (L), dorsalis pedis (R) Skin: ecchymosis, other (blister on right hall) Neurological: no new focal deficit Psy/Mental Status: alert, normal affect, normal mood - Problem List Review Problem List Initiated/Reviewed/Updated: Yes - My Orders Last 24 Hours: My Active Orders 10/26/16 00:33 Transfer Patient (Change bed) [ADT] Routine 10/26/16 08:30 Potassium Chloride [Klor-Con M20] 20 meq PO Q3H 10/26/16 09:00 Doxycycline [Vibramycin] 100 mg PO DAILY 10/27/16 05:11 BASIC METABOLIC PANEL,BMP [CHEM] AM CBC WITH AUTO DIFF [HEME] AM INR,PT,PROTHROMBIN TIME [COAG] AM MAGNESIUM [CHEM] AM 10/27/16 14:00 C-REACTIVE PROTEIN [CHEM] DAILY 10/28/16 05:11 BASIC METABOLIC PANEL,BMP [CHEM] AM CBC WITH AUTO DIFF [HEME] AM INR,PT,PROTHROMBIN TIME [COAG] AM MAGNESIUM [CHEM] AM 10/28/16 14:00 C-REACTIVE PROTEIN [CHEM] DAILY 10/29/16 05:11 INR,PT,PROTHROMBIN TIME [COAG] AM - Plan Plan:: Assessment/Plan: Acute: Recurrent Falls - Per grand-daughter, usually happens at night when he goes to the bathroom - Risk factors; poor gait and balance, poor lighting, unwanted objects on his pathway, difficulty walking and, ataxia Generalized Weakness- Seems to be Chronic - Likely Multi-factorial - RA alone is a risk factor - Thyroid panel: normal - Vit D level pendinf - Continue PT/OT Hypokalemia - K 3.0--> 2.9, continues to be low - Pharmacy to replete and monitor - Will adjust diuretic dose - Follow am labs Elevated BNP Level - Carries a hx/o HF - BNP is 518 - CXR no acute abnormal findings--clinically not in exacerbation - Could not find baseline echo - Check with PCP, will repeat if > 6 months - Last echo found in hospital records was 2011 with EF of 60-65%, severely dilated lt atrium, mild aortic and tricuspid valve regurg, mild dilation of aortic root. Repeat echo ordered - results pending URI with cough, sore thoat -Throat culture with + MRSA -Sputum culture with + MRSA -Started on doxycycline PO -Will obtain repeat CXR today -RT, nebs, IS, acapella Resolved: S/p Near Syncope - Multi-factorial - Likely from Orthostasis/polypharmacy S/p Orthostatic Hypotension - BPs: laying 121/75, sitting 100/68 and standing 90/62 mmHg - Risk Factors: Poor Extremity Circulation (lower extremity skin discoloration) and BP meds - DDx: Autonomic Dysfunction vs Drug Induced - Received adequate hydration in ED S/p Elevated Troponin Level - Likely from CKD and A-fib - Would not monitor it, likely chronic Chronic: COPD Chronic A-Fib on warfarin, INR therapeutic level HTN- was hypotensive on admit, stable now HLD GERD RA BPH CKD Stage 3-4 Hypothyroidism- TSH MDD GERD Impaired Vision DM2- sugars stable Dementia Hx/o Wedge Compression fracture Plan: Continue current treatment Routine AM Labs Continue PT/OT Fall Precautions CM/SW for d/c planning Plan DC to SNF vs [facility] with HHC/PT in next 24-48 hours pending progress, if stable. LOS may be > 96 hours due to complexity of case, cont monitoring of electrolytes, low K+ despite replacement, pending CXR today. Code status: DNR Reviewed HTN/HF Meds: He is on the following regimen Lasix 80 mg po BID, Metolazone 5 mg MOTH, Digoxin 125 mcg po daily, Metoprolol Tartrate 25 mg po BID , K 20 mEq TID and Hytrin 1 mg HS. This regimen may be too much for him. Will trim down lasix to 60 mg po BID and Metolazone 2.5 mg MOTH with 2 grams salt restrictions. Still awaiting 2D echo report.
[2016-10-26] MEDS: Tiotropium Inhaler 18 MCG Inhalation Powder Cap Kit of 5 INH SCH (09:54)
[2016-10-26] MEDS: Formoterol/Mometasone 200-5 MCG 8.8 GM Inhaler IH SCH ×2 (09:54→21:46)
[2016-10-26] MEDS: Donepezil 10 MG Tab PO SCH (10:31)
[2016-10-26] MEDS: Acetaminophen 325 MG Tab PO SCH ×2 (10:32→20:06)
[2016-10-26] MEDS: Doxycycline 100 MG Cap PO SCH (10:32)
[2016-10-26] MEDS: Digoxin 125 MCG Tab PO SCH (10:33)
[2016-10-26] MEDS: Aspirin 81 MG Tab.Chew PO SCH (10:33)
[2016-10-26] MEDS: Potassium Chloride 20 MEQ Tab.ER PO SCH ×6 (10:33→20:03)
[2016-10-26] MEDS: Citalopram 10 MG Tab PO SCH (10:34)
[2016-10-26] MEDS: Furosemide 80 MG Tab PO SCH ×2 (10:35→21:25)
[2016-10-26] MEDS: Folic Acid 1 MG Tab PO SCH ×2 (10:35→20:05)
[2016-10-26] MEDS: Metoprolol Succinate 25 MG Tab.ER PO SCH (10:35)
[2016-10-26] MEDS: Bacitracin Oint 15 GM Tube TOP SCH (10:38)
[2016-10-26] MEDS: Magnesium Oxide 400 MG Tab PO SCH ×2 (10:39→20:05)
[2016-10-26] MEDS: Dorzolamide 2% Ophth Soln 10 ML Bottle EYEBOTH SCH ×2 (10:39→20:06)
[2016-10-26] MEDS: Brimonidine 0.2% Ophth Soln 5 ML Bottle EYEBOTH SCH ×2 (10:49→20:07)
[2016-10-26] MEDS: Warfarin 5 MG Tab PO SCH (17:41)
[2016-10-26] MEDS: Terazosin 5 MG Cap PO SCH (20:03)
[2016-10-26] MEDS: Rosuvastatin 10 MG Tab PO SCH (20:05)
[2016-10-26] MEDS ORDERED: Potassium Chloride 20 MEQ Tab.ER PO ONE (21:00)
[2016-10-26] MEDS: Insulin Detemir 100 Units/ML 3 ML Pen SUBCUT SCH (21:23)
[2016-10-27] MEDS: Albuterol/Ipratropium 3.0-0.5 MG/3 ML Neb Soln NEB SCH ×4 (06:10→20:56)
[2016-10-27] MEDS: Levothyroxine 75 MCG Tab PO SCH (06:56)
[2016-10-27] MEDS: Pantoprazole 40 MG Tab.CR PO SCH (06:56)
[2016-10-27] MEDS: Furosemide 80 MG Tab PO SCH ×2 (08:31→20:05)
[2016-10-27] MEDS: Doxycycline 100 MG Cap PO SCH (08:31)
[2016-10-27] MEDS: Aspirin 81 MG Tab.Chew PO SCH (08:31)
[2016-10-27] MEDS: Citalopram 10 MG Tab PO SCH (08:32)
[2016-10-27] MEDS: Magnesium Oxide 400 MG Tab PO SCH ×2 (08:33→20:01)
[2016-10-27] MEDS: Folic Acid 1 MG Tab PO SCH ×2 (08:33→20:01)
[2016-10-27] MEDS: Digoxin 125 MCG Tab PO SCH (08:33)
[2016-10-27] MEDS: Acetaminophen 325 MG Tab PO SCH ×2 (08:33→20:03)
[2016-10-27] MEDS: Potassium Chloride 20 MEQ Tab.ER PO SCH ×3 (08:33→20:04)
[2016-10-27] MEDS: Donepezil 10 MG Tab PO SCH (08:34)
[2016-10-27] MEDS: Metoprolol Succinate 25 MG Tab.ER PO SCH (08:34)
[2016-10-27] MEDS: Dorzolamide 2% Ophth Soln 10 ML Bottle EYEBOTH SCH ×2 (08:37→20:08)
[2016-10-27] MEDS: Bacitracin Oint 15 GM Tube TOP SCH (08:37)
[2016-10-27] MEDS: Brimonidine 0.2% Ophth Soln 5 ML Bottle EYEBOTH SCH ×2 (08:37→20:01)
[2016-10-27] MEDS: Tiotropium Inhaler 18 MCG Inhalation Powder Cap Kit of 5 INH SCH (09:37)
[2016-10-27] MEDS: Formoterol/Mometasone 200-5 MCG 8.8 GM Inhaler IH SCH ×2 (09:37→20:56)
--- NOTE | 2016-10-27 10:07 | PCM.PN ---
- General Info Date of Service: 10/27/16 Admission Dx/Problem (Free Text): Admission Diagnosis/Problem Admission Diagnosis/Problem Hypovolemia and Hypotension Subjective Update: Follow Up Functional Status: Reports: pain controlled, tolerating diet, ambulating, urinating. Denies: new symptoms - Review of Systems General: Denies: Fever, Weakness, Fatigue, Malaise, Chills HEENT: Reports: no symptoms Pulmonary: Denies: shortness of breath Cardiovascular: Denies: Chest Pain Gastrointestinal: Denies: Abdominal pain, Nausea, Vomiting Genitourinary: Reports: no symptoms Musculoskeletal: Reports: no symptoms Skin: Reports: no symptoms Neurological: Reports: Gait Disturbance. Denies: Confusion, Syncope, Difficulty Walking Psychiatric: Reports: hallucinations. Denies: depression, anxiety Systems Review Comment:: He feels pretty good and his voice is getting better. He is now on nectar thick diet. He has no new complaints. - Patient Data Vitals - most recent: Last Vital Signs Temp 36.6 C 10/27/16 08:34 Pulse 79 10/27/16 08:34 Resp 24 H 10/27/16 08:34 BP 103/55 L 10/27/16 08:34 Pulse Ox 96 10/27/16 09:37 Weight - most recent: 84.459 kg I&O - last 24 hours: Intake & Output 10/26/16 10/27/16 10/27/16 22:59 06:59 14:59 Intake Total 980 500 Output Total 700 900 Balance 280 -400 Lab Results last 24 hrs: Laboratory Results - last 24 hr 10/26/16 10/27/16 10/27/16 Range/Units 21:22 05:53 05:53 WBC 4.36 (4.23-9.07) K/mm3 RBC 3.73 L (4.63-6.08) M/mm3 Hgb 12.2 L (13.7-17.5) gm/L Hct 36.1 L (40.1-51.0) % MCV 96.8 H (79.0-92.2) fl MCH 32.7 H (25.7-32.2) pg MCHC 33.8 (32.2-35.5) g/dl RDW Std Deviation 53.4 H (35.1-43.9) fL Plt Count 186 (163-337) K/mm3 MPV 9.3 L (9.4-12.3) fl Neut % (Auto) 58.4 (34.0-67.9) % Lymph % (Auto) 23.9 (21.8-53.1) % [place] % (Auto) 16.3 H (5.3-12.2) % Eos % (Auto) 0.9 (0.8-7.0) Baso % (Auto) 0.5 (0.1-1.2) % Neut # 2.55 (1.78-5.38) K/mm3 Lymph # 1.04 L (1.32-3.57) K/mm3 [place] # 0.71 (0.30-0.82) K/mm3 Eos # 0.04 (0.04-0.54) K/mm3 Baso # 0.02 (0.01-0.08) K/mm3 Manual Slide Review Normal smear PT (8.0-13.0) SECONDS INR Sodium 139 (136-145) mEq/L Potassium 3.4 L (3.5-5.1) mEq/L Chloride 102 (98-107) mEq/L Carbon Dioxide 29 (21-32) mEq/L Anion Gap 11.4 (5-15) BUN 41 H (7-18) mg/dL Creatinine 1.9 H (0.7-1.3) mg/dL Est Cr Clr Drug Dosing 28.28 mL/min Estimated GFR (MDRD) 34 (>60) mL/min BUN/Creatinine Ratio 21.6 H (14-18) Glucose 133 H (83-115) mg/dL POC Glucose 194 H (83-110) mg/dL Calcium 8.4 L (8.5-10.1) mg/dL Magnesium 1.9 (1.8-2.4) mg/dl C-Reactive Protein (<1.0) mg/dL 10/27/16 10/27/16 Range/Units 05:53 05:53 WBC (4.23-9.07) K/mm3 RBC (4.63-6.08) M/mm3 Hgb (13.7-17.5) gm/L Hct (40.1-51.0) % MCV (79.0-92.2) fl MCH (25.7-32.2) pg MCHC (32.2-35.5) g/dl RDW Std Deviation (35.1-43.9) fL Plt Count (163-337) K/mm3 MPV (9.4-12.3) fl Neut % (Auto) (34.0-67.9) % Lymph % (Auto) (21.8-53.1) % [place] % (Auto) (5.3-12.2) % Eos % (Auto) (0.8-7.0) Baso % (Auto) (0.1-1.2) % Neut # (1.78-5.38) K/mm3 Lymph # (1.32-3.57) K/mm3 [place] # (0.30-0.82) K/mm3 Eos # (0.04-0.54) K/mm3 Baso # (0.01-0.08) K/mm3 Manual Slide Review PT 36.6 H (8.0-13.0) SECONDS INR 3.12 Sodium (136-145) mEq/L Potassium (3.5-5.1) mEq/L Chloride (98-107) mEq/L Carbon Dioxide (21-32) mEq/L Anion Gap (5-15) BUN (7-18) mg/dL Creatinine (0.7-1.3) mg/dL Est Cr Clr Drug Dosing mL/min Estimated GFR (MDRD) (>60) mL/min BUN/Creatinine Ratio (14-18) Glucose (83-115) mg/dL POC Glucose (83-110) mg/dL Calcium (8.5-10.1) mg/dL Magnesium (1.8-2.4) mg/dl C-Reactive Protein 2.3 H* (<1.0) mg/dL Med Orders - Current: Current Medications Acetaminophen (Tylenol) 650 mg PO Q4H PRN PRN Reason: Pain (Mild 1-3)/fever Acetaminophen (Tylenol) 650 mg PO BID [facility] Last Admin: 10/27/16 08:33 Dose: 650 mg Acetaminophen/Hydrocodone Bitart ([place] 325-5 Mg) 1 tab PO Q4H PRN PRN Reason: Pain (moderate 4-6) Albuterol (Proventil Neb Soln) 2.5 mg NEB TID PRN PRN Reason: Shortness of Breath Albuterol/Ipratropium (Duoneb 3.0-0.5 Mg/3 Ml) 3 ml NEB QIDRT [facility] Last Admin: 10/27/16 06:10 Dose: 3 ml Aspirin (Aspirin) 81 mg PO DAILY [facility] Last Admin: 10/27/16 08:31 Dose: 81 mg Azathioprine (Imuran) 100 mg PO BID [facility] Last Admin: 10/27/16 08:33 Dose: 100 mg Bacitracin (Bacitracin Oint) 0 gm TOP DAILY [facility] Last Admin: 10/27/16 08:37 Dose: 1 applic Bisacodyl (Dulcolax) 5 mg PO DAILY PRN PRN Reason: Constipation Brimonidine Tartrate (Alphagan 0.2% Ophth Soln) 0 ml EYEBOTH BID [facility] Last Admin: 10/27/16 08:37 Dose: 1 drop Citalopram Hydrobromide (Celexa) 20 mg PO DAILY [facility] Last Admin: 10/27/16 08:32 Dose: 20 mg Digoxin (Lanoxin) 125 mcg PO DAILY [facility] Last Admin: 10/27/16 08:33 Dose: 125 mcg Donepezil HCl (Aricept) 5 mg PO DAILY [facility] Last Admin: 10/27/16 08:34 Dose: 5 mg Dorzolamide HCl (Trusopt 2% Ophth Soln) 0 ml EYEBOTH BID [facility] Last Admin: 10/27/16 08:37 Dose: Not Given Doxycycline Hyclate (Vibramycin) 100 mg PO DAILY [facility] Last Admin: 10/27/16 08:31 Dose: 100 mg Folic Acid (Folic Acid) 1 mg PO BID [facility] Last Admin: 10/27/16 08:33 Dose: 1 mg Furosemide (Lasix) 60 mg PO BID [facility] Last Admin: 10/27/16 08:31 Dose: 60 mg Guaifenesin (Mucinex) 600 mg PO TID PRN PRN Reason: Cough Last Admin: 10/26/16 15:05 Dose: 600 mg Hydromorphone HCl (Dilaudid) 0.25 mg IVPUSH Q2H PRN PRN Reason: Pain (severe 7-10) Promethazine HCl 12.5 mg/ (Sodium Chloride) 50.5 mls @ 100 mls/hr IV Q6H PRN PRN Reason: Nausea/Vomiting Insulin Detemir (Levemir) 8 unit SUBCUT BEDTIME [facility] Last Admin: 10/26/16 21:23 Dose: 8 units Levothyroxine Sodium (Levothyroxine) 75 mcg PO ACBREAKFAST [facility] Last Admin: 10/27/16 06:56 Dose: 75 mcg Lorazepam (Ativan) 0.5 mg IV Q6H PRN PRN Reason: Anxiety Magnesium Oxide (Magnesium Oxide) 400 mg PO BID [facility] Last Admin: 10/27/16 08:33 Dose: 400 mg Magnesium Sulfate (Pharmacy To Dose - Magnesium Replacement) 1 dose .XX ASDIRECTED [facility] Metolazone (Zaroxolyn) 2.5 mg PO MOTH [facility] Metoprolol Succinate (Toprol Xl) 25 mg PO DAILY [facility] Last Admin: 10/27/16 08:34 Dose: 25 mg Mometasone Furoate/Formoterol Fumar (Dulera 200-5 Mcg) 0 puff IH BID [facility] Last Admin: 10/27/16 09:37 Dose: 2 puff Ondansetron HCl (Zofran) 4 mg IV Q6H PRN PRN Reason: Nausea/Vomiting Pantoprazole Sodium (Protonix) 40 mg PO DAILY@0700 [facility] Last Admin: 10/27/16 06:56 Dose: 40 mg Polyethylene Glycol (Miralax) 17 gm PO DAILY PRN PRN Reason: Constipation Potassium Chloride (Klor-Con M20) 20 meq PO TID [facility] Last Admin: 10/27/16 08:33 Dose: 20 meq Potassium Chloride (Pharmacy To Dose - Potassium Replacement) 1 dose .XX ASDIRECTED [facility] Rosuvastatin Calcium (Crestor) 5 mg PO BEDTIME [facility] Last Admin: 10/26/16 20:05 Dose: 5 mg Senna (Senna) 8.6 mg PO DAILY PRN PRN Reason: Constipation Senna/Docusate Sodium (Senna Plus) 1 tab PO BID PRN PRN Reason: Constipation Sodium Chloride (Saline Flush) 10 ml FLUSH ASDIRECTED PRN PRN Reason: Keep Vein Open Last Admin: 10/23/16 12:05 Dose: 10 ml Terazosin HCl (Hytrin) 10 mg PO BEDTIME [facility] Last Admin: 10/26/16 20:03 Dose: 10 mg Tiotropium [place] (Spiriva Handihaler) 18 mcg INH DAILY [facility] Last Admin: 10/27/16 09:37 Dose: 1 cap Warfarin Sodium (Coumadin) 7.5 mg PO MOWEFR [facility] Last Admin: 10/25/16 17:13 Dose: Not Given Warfarin Sodium (Coumadin) 5 mg PO SUTUTHSA [facility] Last Admin: 10/26/16 17:41 Dose: Not Given Discontinued Medications Albuterol/Ipratropium (Duoneb 3.0-0.5 Mg/3 Ml) 3 ml NEB Q4H PRN PRN Reason: Shortness Of Breath/wheezing Albuterol/Ipratropium (Duoneb 3.0-0.5 Mg/3 Ml) 3 ml NEB QID [facility] Doxycycline Hyclate (Vibramycin) 100 mg PO BID [facility] Stop: 10/25/16 21:01 Last Admin: 10/25/16 22:23 Dose: 100 mg Furosemide (Lasix) 80 mg PO BID [facility] Last Admin: 10/26/16 10:35 Dose: 80 mg Sodium Chloride (Normal Saline) 500 mls @ 250 mls/hr IV .BOLUS ONE Stop: 10/23/16 13:47 Last Admin: 10/23/16 12:04 Dose: 250 mls/hr Sodium Chloride (Normal Saline) 250 mls @ 250 mls/hr IV .BOLUS ONE Stop: 10/23/16 12:47 Last Admin: 10/23/16 17:03 Dose: Not Given Potassium Chloride 10 meq/ (Premix) 100 mls @ 100 mls/hr IV Q1H [facility] Stop: 10/24/16 11:29 Last Admin: 10/24/16 14:05 Dose: 100 mls/hr Potassium Chloride 10 meq/ (Premix) 100 mls @ 100 mls/hr IV Q1H [facility] Stop: 10/25/16 12:29 Last Admin: 10/25/16 18:03 Dose: 50 mls/hr Vancomycin HCl 1 gm/ Sodium (Chloride) 250 mls @ 250 mls/hr IV Q24H [facility] Last Admin: 10/25/16 15:53 Dose: Not Given Magnesium Oxide (Magnesium Oxide) 400 mg PO DAILY [facility] Metolazone (Zaroxolyn) 5 mg PO MOTH [facility] Last Admin: 10/24/16 14:14 Dose: 5 mg Metoprolol Tartrate (Lopressor) 25 mg PO Q12HR [facility] Last Admin: 10/25/16 09:12 Dose: 25 mg Non-Formulary Medication (Blood Sugar Diagnostic [Blood Glucose Test]) 1 strip SUBCUT Q48H [facility] Last Admin: 10/23/16 16:21 Dose: Not Given Non-Formulary Medication (Lancets [Accu-Chek]) 1 strip SUBCUT Q48H [facility] Last Admin: 10/23/16 16:21 Dose: Not Given Pantoprazole Sodium (Protonix) 40 mg PO DAILY [facility] Last Admin: 10/24/16 08:02 Dose: 40 mg Potassium Chloride (Klor-Con M20) 20 meq PO Q3H [facility] Stop: 10/26/16 14:31 Last Admin: 10/26/16 15:05 Dose: 20 meq Potassium Chloride (Klor-Con M20) 60 meq PO BEDTIME [facility] Stop: 10/26/16 21:01 Last Admin: 10/26/16 20:03 Dose: 60 meq - Exam General: alert, cooperative, no acute distress HEENT: Pupils equal, Pupils reactive, EOMI, Mucous membr. moist/pink Neck: supple, trachea midline, no JVD, no thyromegaly Lungs: Normal respiratory effort, Decreased breath sounds Cardiovascular: Irregular Rhythm Abdomen: bowel sounds present, soft, no tenderness, no distension (Male) Exam: Deferred Back Exam: normal inspection, decreased range of motion Extremities: no edema, normal pulses, no tenderness/swelling, no clubbing, no cyanosis, no calf tenderness Skin: warm, dry, intact, ecchymosis Neurological: no new focal deficit. No: normal gait Psy/Mental Status: alert, normal affect, normal mood - Problem List Review Problem List Initiated/Reviewed/Updated: Yes - My Orders Last 24 Hours: My Active Orders 10/26/16 20:00 Furosemide [Lasix] 60 mg PO BID 10/26/16 Lunch Consistent Carbohydrate Diet [DIET] 10/27/16 09:00 Metolazone [Zaroxolyn] 2.5 mg PO MOTH 10/28/16 05:11 BASIC METABOLIC PANEL,BMP [CHEM] AM CBC WITH AUTO DIFF [HEME] AM INR,PT,PROTHROMBIN TIME [COAG] AM MAGNESIUM [CHEM] AM 10/28/16 14:00 C-REACTIVE PROTEIN [CHEM] DAILY 10/29/16 05:11 INR,PT,PROTHROMBIN TIME [COAG] AM - Plan Plan:: Assessment/Plan: Acute: Recurrent Falls - Per grand-daughter, usually happens at night when he goes to the bathroom - Risk factors; poor gait and balance, poor lighting, unwanted objects on his pathway, difficulty walking and, ataxia Generalized Weakness- Seems to be Chronic - Likely Multi-factorial - RA alone is a risk factor - Thyroid panel: normal - Vit D level: 21 (low), will start Vit D supplement - Continue PT/OT Hypokalemia - K 3.0--> 2.9--> 3.4 - Pharmacy to replete and monitor - Will adjust diuretic dose - Follow am labs Elevated BNP Level - Carries a hx/o HF - BNP is 518 - CXR no acute abnormal findings--clinically not in exacerbation - Could not find baseline echo - Check with PCP, will repeat if > 6 months - Last echo found in hospital records was 2011 with EF of 60-65%, severely dilated lt atrium, mild aortic and tricuspid valve regurg, mild dilation of aortic root. Repeat echo ordered - results pending URI with cough, sore thoat, improving - Throat culture with + MRSA - Sputum culture with + MRSA - Started on doxycycline PO - RT, nebs, IS, acapella Resolved: S/p Near Syncope - Multi-factorial - Likely from Orthostasis/polypharmacy S/p Orthostatic Hypotension - BPs: laying 121/75, sitting 100/68 and standing 90/62 mmHg - Risk Factors: Poor Extremity Circulation (lower extremity skin discoloration) and BP meds - DDx: Autonomic Dysfunction vs Drug Induced - Received adequate hydration in ED S/p Elevated Troponin Level - Likely from CKD and A-fib - Would not monitor it, likely chronic Chronic: COPD Chronic A-Fib on warfarin, INR therapeutic level HTN- was hypotensive on admit, stable now HLD GERD RA BPH CKD Stage 3-4 Hypothyroidism- TSH MDD GERD Impaired Vision DM2- sugars stable Dementia Hx/o Wedge Compression fracture Plan: Continue current treatment Routine AM Labs Continue PT/OT/[employer]CH[employer]ICIAN Diet upgraded to nectar thick Fall Precautions CM/SW for d/c planning Additional orders as above Plan DC to SNF vs [facility] with HHC/PT in next 24-48 hours pending progress, if stable. LOS > 96 hours due to complexity of case, cont monitoring of electrolytes, low K+ despite replacement, pending CXR today. Code status: DNR Reviewed HTN/HF Meds: He is on the following regimen Lasix 80 mg po BID, Metolazone 5 mg MOTH, Digoxin 125 mcg po daily, Metoprolol Tartrate 25 mg po BID , K 20 mEq TID and Hytrin 1 mg HS. This regimen may be too much for him. Will trim down lasix to 60 mg po BID and Metolazone 2.5 mg MOTH with 2 grams salt restrictions. Still awaiting 2D echo report. Family member present at beside, would like for him to stay for 1 more night. She does not feel patient is ready to go today. Informed family member, he will go in am if he remains stable.
[2016-10-27] MEDS: Metolazone 5 MG Tab PO SCH (12:40)
[2016-10-27] MEDS: Warfarin 5 MG Tab PO SCH (17:24)
[2016-10-27] MEDS: Rosuvastatin 10 MG Tab PO SCH (20:01)
[2016-10-27] MEDS: Terazosin 5 MG Cap PO SCH (20:01)
[2016-10-27] MEDS: Insulin Detemir 100 Units/ML 3 ML Pen SUBCUT SCH (22:30)
[2016-10-28] MEDS: Levothyroxine 75 MCG Tab PO SCH (05:55)
[2016-10-28] MEDS: Pantoprazole 40 MG Tab.CR PO SCH (06:00)
[2016-10-28] MEDS: Albuterol/Ipratropium 3.0-0.5 MG/3 ML Neb Soln NEB SCH ×2 (06:16→10:03)
--- NOTE | 2016-10-28 08:46 | PCM.DCSUM1 ---
Discharge Summary - Hospital Course Free Text/Narrative:: This is is an 86 yo pleasant elderly white male with past medical hx/o COPD, HTN , HLD, GERD, BPH, CKD Stage 3-4, Hypothyroidism, MDD, GERD, DM2, Dementia, Hx/o Wedge Compression fracture, who comes in with complaint of near syncope and was pos for orthostatic hypotension with hypokalemia. Patient is a resident of . He also carries a hx/o Chronic A-Fib on warfarin, RA, Chronic Generalized Weakness, Gait Imbalance and Difficulty Walking. His initial work up in ED shows a CBC remarkable for WBC 9.23, Hgb 13.6, Hct 40 and neutrophils 6.61. His INR 2.81. His Chemistry is significant for K 3, BUN 38, Cr 2.4, BS 118, Ca 8.4, Troponin 0.086, CRP 3, BNP 518, and albumin 2.7. His UA shows no UTI. CXR is fairly stable compared to previous study. Flu is negative. Patient was referred to Hospitalist service for further management of his presenting complaints. He is DNR. Patient was hydrated with gentle IVF. Potassium and magnesium were replaced. Potassium was as low as 2.4. Repeat CXR was unremarkable. He did have URI type symptoms and sore throat. Sputum culture and throat culture were obtained and both were + for MRSA; he was treated with oral doxycycline for this and will continue as outpatient. Thyroid function studies were WNL. Vit D level was low at 21, he was started on supplement. He worked with PT/OT for strengthening which slowly improved. He will be discharged back to [place] [facility] today with resumption of home health care services, PT and OT. He will follow up with his PCP, Dr. Montano within 3-5 days of discharge with recheck of labs prior, BMP and magnesium levels. - Discharge Data Discharge Date: 10/28/16 (admit date10/23/16) Discharge Disposition: [facility] Condition: Good - Discharge Diagnosis/Problem(s) (1) Postural dizziness with presyncope SNOMED Code(s): 169664799 ICD Code: R42 - DIZZINESS AND GIDDINESS; R55 - SYNCOPE AND COLLAPSE Status : Acute Priority: High Current Visit: Yes (2) Orthostatic hypotension SNOMED Code(s): 17218516 ICD Code: I95.1 - ORTHOSTATIC HYPOTENSION Status: Acute Priority: High Current Visit: Yes (3) CHF (congestive heart failure) SNOMED Code(s): 49660283 ICD Code: I50.9 - HEART FAILURE, UNSPECIFIED Status: Chronic Priority: Medium Current Visit: Yes Qualifiers: Congestive heart failure type: unspecified congestive heart failure type Congestive heart failure chronicity: chronic Qualified Code(s): I50.9 - Heart failure, unspecified (4) CKD (chronic kidney disease) SNOMED Code(s): 367081736 ICD Code: N18.9 - CHRONIC KIDNEY DISEASE, UNSPECIFIED Status: Chronic Priority: Medium Current Visit: Yes Qualifiers: Chronic kidney disease stage: stage 3 (moderate) Qualified Code(s): N18.3 - Chronic kidney disease, stage 3 (moderate) (5) Elevated troponin SNOMED Code(s): 300862901, 198120732 ICD Code: R74.8 - ABNORMAL LEVELS OF OTHER SERUM ENZYMES Status: Acute Priority: Medium Current Visit: Yes (6) Hypokalemia SNOMED Code(s): 82038620 ICD Code: E87.6 - HYPOKALEMIA Status: Acute Priority: High Current Visit: Yes (7) Weakness SNOMED Code(s): 56363142 ICD Code: R53.1 - WEAKNESS Status: Chronic Priority: Medium Current Visit: Yes (8) MRSA (methicillin resistant staph aureus) culture positive SNOMED Code(s): 374173080, 407305752 ICD Code: Z22.322 - CARRIER OR SUSPECTED CARRIER OF METHICILLIN RESIS STAPH Status: Acute Current Visit: Yes Problem Details: sputum and throat cultures + (9) Hypovitaminosis D SNOMED Code(s): 79494654 ICD Code: E55.9 - VITAMIN D DEFICIENCY, UNSPECIFIED Status: Chronic Priority: High Current Visit: Yes (10) Hypomagnesemia SNOMED Code(s): 577242109 ICD Code: E83.42 - HYPOMAGNESEMIA Status: Chronic Priority: High Current Visit: Yes (11) Chronic atrial fibrillation SNOMED Code(s): 961141759 ICD Code: I48.2 - CHRONIC ATRIAL FIBRILLATION Status: Chronic Priority: High Current Visit: Yes - Patient Summary/Data Operative Procedure(s) Performed: None Complications: None Consults: Consultations 10/23/16 13:56 Consult to Case Management [CONS] Routine Consult to Inventory Control Analyst [CONS] Routine OT Evaluation and Treatment [CONS] Routine PT Evaluation and Treatment [CONS] Routine Respiratory Care Assess and Treatment [CONS] Routine 10/25/16 13:20 [employer] Evaluation and Treatment [CONS] Routine Labs Pending at D/C: None Recommended Follow-up Testing/Procedures: Follow up with Dr. Montano, PCP within 3-5 days of discharge, labs prior- BMP and magnesium levels Planned Operative Procedure(s) after DC: None Hospital Course: As above - Patient Instructions Diet: Heart Healthy Diet Activity: As Tolerated (PT/OT to continue) Showering/Bathing: May Shower Notify Provider of: Fever, Increased Pain, Nausea and/or Vomiting (worsening of weakness, chest pains, shortness of breath) - Discharge Plan Prescriptions/Med Rec: Doxycycline Calcium [IMW: Doxycycline] 100 mg PO DAILY #10 capsule Ergocalciferol (Vitamin D2) [Vitamin D2] 50,000 units PO Q7D #4 cap Magnesium Oxide 400 mg PO BID #60 tablet Metoprolol Succinate [Toprol XL] 25 mg PO DAILY #30 tab.er Potassium Chloride 40 meq PO BID #120 tablet.er Home Medications: Home Meds Acetaminophen [Tylenol] 650 mg PO BID 06/02/15 [History] Albuterol [Proventil Neb Soln] 2.5 mg NEB TID PRN 06/02/15 [History] Brimonidine [Alphagan P 0.15% Ophth Soln] 1 drop EYEBOTH BID 06/02/15 [History] Brinzolamide [Azopt] 1 drop EYEBOTH BID 06/02/15 [History] Budesonide/Formoterol [Symbicort 160-4.5 MCG] 2 puff IH BID 06/02/15 [History] Folic Acid 1 mg PO BID 06/02/15 [History] Furosemide [Lasix] 80 mg PO BID 06/02/15 [History] Insulin Detemir [Levemir Flextouch] 8 unit SQ BEDTIME 06/02/15 [History] Levothyroxine 75 mcg PO ACBREAKFAST 06/02/15 [History] Rosuvastatin Calcium [Crestor] 5 mg PO BEDTIME 06/02/15 [History] Terazosin [Hytrin] 10 mg PO BEDTIME 06/02/15 [History] Tiotropium [Spiriva HandiHaler] 2 inh INH DAILY 06/02/15 [History] Citalopram Hydrobromide [Celexa] 20 mg PO DAILY #30 tab 06/09/15 [Rx] Digoxin [Lanoxin] 125 mcg PO DAILY #30 tablet 06/09/15 [Rx] Aspirin 81 mg PO DAILY 10/09/16 [History] Donepezil [Aricept] 5 mg PO DAILY 10/09/16 [History] Sennosides [Senna] 8.6 mg PO DAILY PRN 10/09/16 [History] Metolazone 5 mg PO MOTH 10/10/16 [History] azaTHIOprine [Azasan] 100 mg PO BID 10/10/16 [History] guaiFENesin [Mucinex] 600 mg PO TID PRN #40 tab.er 10/14/16 [Rx] Bacitracin [Bacitracin Oint 1 GM] 1 dose TOP DAILY 10/23/16 [History] Ipratropium/Albuterol Sulfate [Iprat-Albut 0.5-3(2.5) mg/3 ml] 3 ml IH Q8H PRN 10/23/16 [History] Omeprazole Magnesium [Prilosec Otc] 10 mg PO DAILY 10/23/16 [History] Doxycycline Calcium [IMW: Doxycycline] 100 mg PO DAILY #10 capsule 10/28/16 [Rx] Ergocalciferol (Vitamin D2) [Vitamin D2] 50,000 units PO Q7D #4 cap 10/28/16 [Rx ] Magnesium Oxide 400 mg PO BID #60 tablet 10/28/16 [Rx] Metoprolol Succinate [Toprol XL] 25 mg PO DAILY #30 tab.er 10/28/16 [Rx] Potassium Chloride 40 meq PO BID #120 tablet.er 10/28/16 [Rx] Warfarin Sodium [Coumadin] 7.5 mg PO MOWEFR #0 10/28/16 [Rx] Warfarin [Coumadin] 5 mg PO SUTUTHSA #0 10/28/16 [Rx] Patient Handouts: Hypotension, [id number], Hypokalemia, Heart Failure, Easy- to-Read, Syncope, [id number] Referrals: Rudy Montano MD [Primary Care Provider] - 11/01/16 9:00 am (Please keep already scheduled appointment at 9:00am. ) - Discharge Summary/Plan Comment DC Time >30 min.: Yes (40 min) - General Info Date of Service: 10/28/16 Admission Dx/Problem (Free Text: Admission Diagnosis/Problem Admission Diagnosis/Problem Hypovolemia and Hypotension Functional Status: Reports: pain controlled, tolerating diet, ambulating, urinating. Denies: new symptoms - Review of Systems General: Reports: No Symptoms, Weakness (much improved) HEENT: Reports: no symptoms Pulmonary: Reports: no symptoms. Denies: cough Cardiovascular: Reports: No Symptoms Gastrointestinal: Reports: No symptoms Genitourinary: Reports: no symptoms Musculoskeletal: Reports: no symptoms Skin: Reports: no symptoms Neurological: Reports: No Symptoms Psychiatric: Reports: no symptoms - Patient Data Vitals - Most Recent: Last Vital Signs Temp 97.9 F 10/28/16 03:45 Pulse 78 10/28/16 03:45 Resp 20 10/28/16 03:45 BP 103/61 10/28/16 03:45 Pulse Ox 95 10/28/16 06:16 Weight - Most Recent: 186 lb 6.4 oz I&O - Last 24 hours: Intake & Output 10/27/16 10/28/16 10/28/16 22:59 06:59 14:59 Intake Total 1050 480 Output Total 1200 750 Balance -150 -270 Lab Results - Last 24 hrs: Laboratory Results - last 24 hr 10/24/16 10/27/16 10/28/16 Range/Units 05:04 22:29 05:50 WBC 4.64 (4.23-9.07) K/mm3 RBC 3.88 L (4.63-6.08) M/mm3 Hgb 12.5 L (13.7-17.5) gm/L Hct 37.9 L (40.1-51.0) % MCV 97.7 H (79.0-92.2) fl MCH 32.2 (25.7-32.2) pg MCHC 33.0 (32.2-35.5) g/dl RDW Std Deviation 54.6 H (35.1-43.9) fL Plt Count 172 (163-337) K/mm3 MPV 9.5 (9.4-12.3) fl Neut % (Auto) 60.0 (34.0-67.9) % Lymph % (Auto) 22.8 (21.8-53.1) % [place] % (Auto) 15.7 H (5.3-12.2) % Eos % (Auto) 1.1 (0.8-7.0) Baso % (Auto) 0.2 (0.1-1.2) % Neut # 2.78 (1.78-5.38) K/mm3 Lymph # 1.06 L (1.32-3.57) K/mm3 [place] # 0.73 (0.30-0.82) K/mm3 Eos # 0.05 (0.04-0.54) K/mm3 Baso # 0.01 (0.01-0.08) K/mm3 Manual Slide Review Normal smear PT (8.0-13.0) SECONDS INR Sodium (136-145) mEq/L Potassium (3.5-5.1) mEq/L Chloride (98-107) mEq/L Carbon Dioxide (21-32) mEq/L Anion Gap (5-15) BUN (7-18) mg/dL Creatinine (0.7-1.3) mg/dL Est Cr Clr Drug Dosing mL/min Estimated GFR (MDRD) (>60) mL/min BUN/Creatinine Ratio (14-18) Glucose (83-115) mg/dL POC Glucose 175 H (83-110) mg/dL Calcium (8.5-10.1) mg/dL Magnesium (1.8-2.4) mg/dl C-Reactive Protein (<1.0) mg/dL 25-OH Vitamin D Total 21 L (>29) ng/mL 10/28/16 10/28/16 10/28/16 Range/Units 05:50 05:50 05:50 WBC (4.23-9.07) K/mm3 RBC (4.63-6.08) M/mm3 Hgb (13.7-17.5) gm/L Hct (40.1-51.0) % MCV (79.0-92.2) fl MCH (25.7-32.2) pg MCHC (32.2-35.5) g/dl RDW Std Deviation (35.1-43.9) fL Plt Count (163-337) K/mm3 MPV (9.4-12.3) fl Neut % (Auto) (34.0-67.9) % Lymph % (Auto) (21.8-53.1) % [place] % (Auto) (5.3-12.2) % Eos % (Auto) (0.8-7.0) Baso % (Auto) (0.1-1.2) % Neut # (1.78-5.38) K/mm3 Lymph # (1.32-3.57) K/mm3 [place] # (0.30-0.82) K/mm3 Eos # (0.04-0.54) K/mm3 Baso # (0.01-0.08) K/mm3 Manual Slide Review PT 29.6 H (8.0-13.0) SECONDS INR 2.56 Sodium 140 (136-145) mEq/L Potassium 3.3 L (3.5-5.1) mEq/L Chloride 102 (98-107) mEq/L Carbon Dioxide 29 (21-32) mEq/L Anion Gap 12.3 (5-15) BUN 32 H (7-18) mg/dL Creatinine 1.7 H (0.7-1.3) mg/dL Est Cr Clr Drug Dosing 31.61 mL/min Estimated GFR (MDRD) 38 (>60) mL/min BUN/Creatinine Ratio 18.8 H (14-18) Glucose 127 H (83-115) mg/dL POC Glucose (83-110) mg/dL Calcium 8.3 L (8.5-10.1) mg/dL Magnesium 1.9 (1.8-2.4) mg/dl C-Reactive Protein 1.7 H* (<1.0) mg/dL 25-OH Vitamin D Total (>29) ng/mL Med Orders - Current: Current Medications Acetaminophen (Tylenol) 650 mg PO Q4H PRN PRN Reason: Pain (Mild 1-3)/fever Acetaminophen (Tylenol) 650 mg PO BID [facility] Last Admin: 10/27/16 20:03 Dose: 650 mg Acetaminophen/Hydrocodone Bitart ([place] 325-5 Mg) 1 tab PO Q4H PRN PRN Reason: Pain (moderate 4-6) Albuterol (Proventil Neb Soln) 2.5 mg NEB TID PRN PRN Reason: Shortness of Breath Albuterol/Ipratropium (Duoneb 3.0-0.5 Mg/3 Ml) 3 ml NEB QIDRT [facility] Last Admin: 10/28/16 06:16 Dose: 3 ml Aspirin (Aspirin) 81 mg PO DAILY [facility] Last Admin: 10/27/16 08:31 Dose: 81 mg Azathioprine (Imuran) 100 mg PO BID [facility] Last Admin: 10/27/16 20:04 Dose: 100 mg Bacitracin (Bacitracin Oint) 0 gm TOP DAILY [facility] Last Admin: 10/27/16 08:37 Dose: 1 applic Bisacodyl (Dulcolax) 5 mg PO DAILY PRN PRN Reason: Constipation Brimonidine Tartrate (Alphagan 0.2% Ophth Soln) 0 ml EYEBOTH BID [facility] Last Admin: 10/27/16 20:01 Dose: 1 drop Citalopram Hydrobromide (Celexa) 20 mg PO DAILY [facility] Last Admin: 10/27/16 08:32 Dose: 20 mg Digoxin (Lanoxin) 125 mcg PO DAILY [facility] Last Admin: 10/27/16 08:33 Dose: 125 mcg Donepezil HCl (Aricept) 5 mg PO DAILY [facility] Last Admin: 10/27/16 08:34 Dose: 5 mg Dorzolamide HCl (Trusopt 2% Ophth Soln) 0 ml EYEBOTH BID [facility] Last Admin: 10/27/16 20:08 Dose: Not Given Doxycycline Hyclate (Vibramycin) 100 mg PO DAILY [facility] Last Admin: 10/27/16 08:31 Dose: 100 mg Ergocalciferol (Vitamin D2) 50,000 units PO Q7D [facility] Folic Acid (Folic Acid) 1 mg PO BID [facility] Last Admin: 10/27/16 20:01 Dose: 1 mg Furosemide (Lasix) 60 mg PO BID [facility] Last Admin: 10/27/16 20:05 Dose: 60 mg Guaifenesin (Mucinex) 600 mg PO TID PRN PRN Reason: Cough Last Admin: 10/26/16 15:05 Dose: 600 mg Hydromorphone HCl (Dilaudid) 0.25 mg IVPUSH Q2H PRN PRN Reason: Pain (severe 7-10) Promethazine HCl 12.5 mg/ (Sodium Chloride) 50.5 mls @ 100 mls/hr IV Q6H PRN PRN Reason: Nausea/Vomiting Insulin Detemir (Levemir) 8 unit SUBCUT BEDTIME [facility] Last Admin: 10/27/16 22:30 Dose: 8 units Levothyroxine Sodium (Levothyroxine) 75 mcg PO ACBREAKFAST [facility] Last Admin: 10/28/16 05:55 Dose: 75 mcg Lorazepam (Ativan) 0.5 mg IV Q6H PRN PRN Reason: Anxiety Magnesium Oxide (Magnesium Oxide) 400 mg PO BID [facility] Last Admin: 10/27/16 20:01 Dose: 400 mg Magnesium Sulfate (Pharmacy To Dose - Magnesium Replacement) 1 dose .XX ASDIRECTED [facility] Metolazone (Zaroxolyn) 2.5 mg PO MOTH [facility] Last Admin: 10/27/16 12:40 Dose: Not Given Metoprolol Succinate (Toprol Xl) 25 mg PO DAILY [facility] Last Admin: 10/27/16 08:34 Dose: 25 mg Mometasone Furoate/Formoterol Fumar (Dulera 200-5 Mcg) 0 puff IH BID [facility] Last Admin: 10/27/16 20:56 Dose: 2 puff Ondansetron HCl (Zofran) 4 mg IV Q6H PRN PRN Reason: Nausea/Vomiting Pantoprazole Sodium (Protonix) 40 mg PO DAILY@0700 [facility] Last Admin: 10/28/16 06:00 Dose: 40 mg Polyethylene Glycol (Miralax) 17 gm PO DAILY PRN PRN Reason: Constipation Potassium Chloride (Klor-Con M20) 20 meq PO TID [facility] Last Admin: 10/27/16 20:04 Dose: 20 meq Potassium Chloride (Pharmacy To Dose - Potassium Replacement) 1 dose .XX ASDIRECTED [facility] Rosuvastatin Calcium (Crestor) 5 mg PO BEDTIME [facility] Last Admin: 10/27/16 20:01 Dose: 5 mg Senna (Senna) 8.6 mg PO DAILY PRN PRN Reason: Constipation Senna/Docusate Sodium (Senna Plus) 1 tab PO BID PRN PRN Reason: Constipation Sodium Chloride (Saline Flush) 10 ml FLUSH ASDIRECTED PRN PRN Reason: Keep Vein Open Last Admin: 10/23/16 12:05 Dose: 10 ml Terazosin HCl (Hytrin) 10 mg PO BEDTIME [facility] Last Admin: 10/27/16 20:01 Dose: 10 mg Tiotropium [place] (Spiriva Handihaler) 18 mcg INH DAILY [facility] Last Admin: 10/27/16 09:37 Dose: 1 cap Warfarin Sodium (Coumadin) 7.5 mg PO MOWEFR [facility] Last Admin: 10/25/16 17:13 Dose: Not Given Warfarin Sodium (Coumadin) 5 mg PO SUTUTHSA [facility] Last Admin: 10/27/16 17:24 Dose: 5 mg Discontinued Medications Albuterol/Ipratropium (Duoneb 3.0-0.5 Mg/3 Ml) 3 ml NEB Q4H PRN PRN Reason: Shortness Of Breath/wheezing Albuterol/Ipratropium (Duoneb 3.0-0.5 Mg/3 Ml) 3 ml NEB QID [facility] Doxycycline Hyclate (Vibramycin) 100 mg PO BID [facility] Stop: 10/25/16 21:01 Last Admin: 10/25/16 22:23 Dose: 100 mg Furosemide (Lasix) 80 mg PO BID [facility] Last Admin: 10/26/16 10:35 Dose: 80 mg Sodium Chloride (Normal Saline) 500 mls @ 250 mls/hr IV .BOLUS ONE Stop: 10/23/16 13:47 Last Admin: 10/23/16 12:04 Dose: 250 mls/hr Sodium Chloride (Normal Saline) 250 mls @ 250 mls/hr IV .BOLUS ONE Stop: 10/23/16 12:47 Last Admin: 10/23/16 17:03 Dose: Not Given Potassium Chloride 10 meq/ (Premix) 100 mls @ 100 mls/hr IV Q1H [facility] Stop: 10/24/16 11:29 Last Admin: 10/24/16 14:05 Dose: 100 mls/hr Potassium Chloride 10 meq/ (Premix) 100 mls @ 100 mls/hr IV Q1H [facility] Stop: 10/25/16 12:29 Last Admin: 10/25/16 18:03 Dose: 50 mls/hr Vancomycin HCl 1 gm/ Sodium (Chloride) 250 mls @ 250 mls/hr IV Q24H [facility] Last Admin: 10/25/16 15:53 Dose: Not Given Magnesium Oxide (Magnesium Oxide) 400 mg PO DAILY [facility] Metolazone (Zaroxolyn) 5 mg PO MOTH [facility] Last Admin: 10/24/16 14:14 Dose: 5 mg Metoprolol Tartrate (Lopressor) 25 mg PO Q12HR [facility] Last Admin: 10/25/16 09:12 Dose: 25 mg Non-Formulary Medication (Blood Sugar Diagnostic [Blood Glucose Test]) 1 strip SUBCUT Q48H [facility] Last Admin: 10/23/16 16:21 Dose: Not Given Non-Formulary Medication (Lancets [Accu-Chek]) 1 strip SUBCUT Q48H [facility] Last Admin: 10/23/16 16:21 Dose: Not Given Pantoprazole Sodium (Protonix) 40 mg PO DAILY [facility] Last Admin: 10/24/16 08:02 Dose: 40 mg Potassium Chloride (Klor-Con M20) 20 meq PO Q3H [facility] Stop: 10/26/16 14:31 Last Admin: 10/26/16 15:05 Dose: 20 meq Potassium Chloride (Klor-Con M20) 60 meq PO BEDTIME [facility] Stop: 10/26/16 21:01 Last Admin: 10/26/16 20:03 Dose: 60 meq - Exam Quality Assessment: Reports: DVT prophylaxis General: Reports: alert, oriented, cooperative, no acute distress HEENT: Reports: Pupils equal, Pupils reactive, EOMI, Mucous membr. moist/pink Neck: Reports: supple Lungs: Reports: Clear to auscultation, Normal respiratory effort, Decreased breath sounds (to bases) Cardiovascular: Reports: Irregular Rhythm Abdomen: Reports: bowel sounds present, soft, no tenderness, no distension (Male) Exam: Deferred Rectal (Males) Exam: Deferred Back Exam: Reports: normal inspection Extremities: Reports: no calf tenderness, edema (minimal at ankles/pedal bilat) Skin: Reports: warm, dry, intact Neurological: Reports: no new focal deficit Psy/Mental Status: Reports: alert, normal affect, normal mood *Q Meaningful Use (DIS) - VTE *Q VTE Criteria *Q: - Stroke *Q Stroke Criteria *Q: - AMI *Q AMI Criteria *Q:
[2016-10-28] MEDS ORDERED: Ergocalciferol (Vitamin D2) 50,000 Unit Cap PO SCH (09:00)
[2016-10-28 09:23] VITALS: BP 109/67
[2016-10-28] MEDS: Donepezil 10 MG Tab PO SCH (09:24)
[2016-10-28] MEDS: Brimonidine 0.2% Ophth Soln 5 ML Bottle EYEBOTH SCH (09:24)
[2016-10-28] MEDS: Furosemide 80 MG Tab PO SCH (09:25)
[2016-10-28] MEDS: Magnesium Oxide 400 MG Tab PO SCH (09:25)
[2016-10-28] MEDS: Doxycycline 100 MG Cap PO SCH (09:25)
[2016-10-28] MEDS: Metoprolol Succinate 25 MG Tab.ER PO SCH (09:26)
[2016-10-28] MEDS: Digoxin 125 MCG Tab PO SCH (09:26)
[2016-10-28] MEDS: Folic Acid 1 MG Tab PO SCH (09:26)
[2016-10-28] MEDS: Potassium Chloride 20 MEQ Tab.ER PO SCH (09:26)
[2016-10-28] MEDS: Citalopram 10 MG Tab PO SCH (09:26)
[2016-10-28] MEDS: Acetaminophen 325 MG Tab PO SCH (09:26)
[2016-10-28] MEDS: Aspirin 81 MG Tab.Chew PO SCH (09:26)
[2016-10-28] MEDS: Dorzolamide 2% Ophth Soln 10 ML Bottle EYEBOTH SCH (09:27)
[2016-10-28] MEDS: Bacitracin Oint 15 GM Tube TOP SCH (09:27)
[2016-10-28] MEDS: Metolazone 5 MG Tab PO SCH (09:39)
[2016-10-28] MEDS: Formoterol/Mometasone 200-5 MCG 8.8 GM Inhaler IH SCH (10:04)
[2016-10-28] MEDS: Tiotropium Inhaler 18 MCG Inhalation Powder Cap Kit of 5 INH SCH (10:04)
[2016-10-28] MEDS ORDERED: Diphtheria,Pertussis(Acell),Tetanus Vaccine 0.5 ML SDV inactive IM ONE (11:23)
[2016-10-28] MEDS ORDERED: Potassium Chloride 20 MEQ Tab.ER PO ONE (11:30)
== END 2016-10-28 13:12 | DRG 312 ==
LOC: JD.ED 11:11 → JD.MS 13:21
PROVIDERS: ADMIT Internal Medicine; ATTEND Internal Medicine
DX: R55 Syncope and collapse (principal); I13.0 Hypertensive heart and chronic kidney disease with heart failure and stage 1 through stage 4 chronic kidney disease, or unspecified chronic kidney disease; I95.1 Orthostatic hypotension; R42 Dizziness and giddiness; E87.6 Hypokalemia; E86.1 Hypovolemia; N18.9 Chronic kidney disease, unspecified; Z91.81 History of falling; R53.1 Weakness; J06.9 Acute upper respiratory infection, unspecified; A49.02 Methicillin resistant Staphylococcus aureus infection, unspecified site; E78.00 Pure hypercholesterolemia, unspecified; E11.22 Type 2 diabetes mellitus with diabetic chronic kidney disease; Z87.01 Personal history of pneumonia (recurrent); N18.3 Chronic kidney disease, stage 3 (moderate); Z87.891 Personal history of nicotine dependence; R13.10 Dysphagia, unspecified; N42.9 Disorder of prostate, unspecified; Z79.4 Long term (current) use of insulin; R79.89 Other specified abnormal findings of blood chemistry; G30.9 Alzheimer's disease, unspecified; F02.80 Dementia in other diseases classified elsewhere, unspecified severity, without behavioral disturbance, psychotic disturbance, mood disturbance, and anxiety; M19.90 Unspecified osteoarthritis, unspecified site; J44.9 Chronic obstructive pulmonary disease, unspecified; F41.9 Anxiety disorder, unspecified; I48.2 Chronic atrial fibrillation; Z79.01 Long term (current) use of anticoagulants; Z86.14 Personal history of Methicillin resistant Staphylococcus aureus infection; E78.5 Hyperlipidemia, unspecified; K21.9 Gastro-esophageal reflux disease without esophagitis; M06.9 Rheumatoid arthritis, unspecified; N40.0 Benign prostatic hyperplasia without lower urinary tract symptoms; E03.9 Hypothyroidism, unspecified; F32.9 Major depressive disorder, single episode, unspecified; F03.90 Unspecified dementia, unspecified severity, without behavioral disturbance, psychotic disturbance, mood disturbance, and anxiety; Z66 Do not resuscitate; H40.9 Unspecified glaucoma; H91.90 Unspecified hearing loss, unspecified ear; Z79.82 Long term (current) use of aspirin; Z79.899 Other long term (current) drug therapy; Z88.8 Allergy status to other drugs, medicaments and biological substances; R33.9 Retention of urine, unspecified; R32 Unspecified urinary incontinence
CPT/HCPCS: 36415; 71020; 80053; 80162; 83735; 83880; 84484; 85025; 85610; 85730; 86140; 93005; 96360; 96361; 99285; J7040; J7050; 80048; 81001; 82306; 82962; 84132; 84439; 84443; 87070; 87077; 87086; 87186; 87205; 87804; 90471; 90715; 92610-GN; 93306; 94640; 94640-76; 94664; 94667; 94668; 94760; 94761; 97110-GO; 97116-GP; 97162-GP; 97166-GO; 97530-GO; 97535-GO; 99222; 99284; A9270; A9270-GY; J1815-GY; J3480; J7500

== ENCOUNTER 2018-03-27 06:41 | Emergency (ER) | payer MEDICARE, OTHER ==
[2018-03-27 06:48] VITALS: BP 114/62
[2018-03-27] MEDS ORDERED: Lidocaine/EPINEPHrine/Tetracaine Soln 1 ML TOP ONE (06:56)
--- NOTE | 2018-03-27 07:48 | EDM.PDOC ---
ED HPI GENERAL MEDICAL PROBLEM - General Chief Complaint: Head Injury Stated Complaint: FALL/HEAD LAC Time Seen by Provider: 03/27/18 07:09 Source of Information: Reports: Patient, Other ([place] paperwork) History Limitations: Reports: Physical Impairment (Dementia) - History of Present Illness INITIAL COMMENTS - FREE TEXT/NARRATIVE: The patient presents to the ED after falling in his bathroom at his home at [facility], sustaining a laceration to the lateral aspect of his right eyebrow. There is no loss of consciousness, and the patient is otherwise uninjured. The patient has a history of generalized weakness, ataxia, and frequent falls. The patient's PCP is Dr. Montano. PMHx/PSHx/SocHx per the RN. - Related Data Allergies Allergy/AdvReac Type Severity Reaction Status Date / Time No Known Drug Allergies Allergy Other Verified 03/27/18 06:48 methylprednisolone AdvReac Hallucinati Verified 03/27/18 06:48 ons Home Meds: Home Meds Acetaminophen [Tylenol] 650 mg PO BID 06/02/15 [History] Brimonidine [Alphagan P 0.15% Ophth Soln] 1 drop EYEBOTH BID 06/02/15 [History] Brinzolamide [Azopt] 1 drop EYEBOTH BID 06/02/15 [History] Budesonide/Formoterol [Symbicort 160-4.5 MCG] 2 puff IH BID 06/02/15 [History] Folic Acid 1 mg PO BID 06/02/15 [History] Furosemide [Lasix] 80 mg PO BID 06/02/15 [History] Insulin Detemir [Levemir Flextouch] 14 unit SQ BEDTIME 06/02/15 [History] Levothyroxine 75 mcg PO ACBREAKFAST 06/02/15 [History] Terazosin [Hytrin] 5 mg PO BEDTIME 06/02/15 [History] Tiotropium [Spiriva HandiHaler] 2 inh INH DAILY 06/02/15 [History] Citalopram Hydrobromide [Celexa] 20 mg PO DAILY #30 tab 06/09/15 [Rx] Digoxin [Lanoxin] 125 mcg PO DAILY #30 tablet 06/09/15 [Rx] Aspirin 81 mg PO DAILY 10/09/16 [History] Donepezil [Aricept] 5 mg PO DAILY 10/09/16 [History] azaTHIOprine [Azasan] 100 mg PO BID 10/10/16 [History] metOLazone [Metolazone] 5 mg PO MOTH 10/10/16 [History] Omeprazole Magnesium [Prilosec Otc] 10 mg PO DAILY 10/23/16 [History] Ergocalciferol (Vitamin D2) [Vitamin D2] 50,000 units PO Q7D #4 cap 10/28/16 [Rx ] Magnesium Oxide 400 mg PO BID #60 tablet 10/28/16 [Rx] Metoprolol Succinate [Toprol XL] 25 mg PO DAILY #30 tab.er 10/28/16 [Rx] Potassium Chloride 40 meq PO TID 03/11/18 [History] Rosuvastatin [Crestor] 5 mg PO DAILY 03/11/18 [History] Warfarin [Coumadin] 5 mg PO DAILY 03/11/18 [History] Albuterol/Ipratropium [Combivent Respimat] 4 gm IH Q4H #1 aer.w.adap 03/16/18 [ Rx] Benzonatate [Tessalon Perle] 100 mg PO TID #21 capsule 03/16/18 [Rx] guaiFENesin/Dextromethorphan [Siltussin DM Coug] 5 ml PO Q6H PRN #1 syrup [Rx] Past Medical History HEENT History: Reports: Glaucoma, Hard of Hearing Cardiovascular History: Reports: Afib, Heart Failure, High Cholesterol, Hypertension Respiratory History: Reports: COPD, Pneumonia, Recurrent, SOB, Other (See Below) Other Respiratory History: pulmonary edema, strep pneumonia Gastrointestinal History: Reports: GERD, Other (See Below) Other Gastrointestinal History: ulverative colitis, dysphagia Genitourinary History: Reports: Chronic Renal Insuffiency, Prostate Disorder, Renal Disease, Retention, Urinary, Urinary Incontinence Other Genitourinary History: stage3 chronic kidney disease Musculoskeletal History: Reports: Arthritis Other Musculoskeletal History: Difficulty walking with muscle weakness. Neurological History: Reports: Alzheimers Disease, Other (See Below) Other Neuro History: possible early onset dementia vs. alzheimers Psychiatric History: Reports: Depression Other Psychiatric History: pt has anxiety at times about not returning home to live. Endocrine/Metabolic History: Reports: Diabetes, Type II, Hypothyroidism Dermatologic History: Reports: Other (See Below) Other Dermatologic History: easily bruised secondary to coumadin use - Infectious Disease History Infectious Disease History: Reports: MRSA - Past Surgical History GI Surgical History: Reports: Colonoscopy, EGD Social & Family History - Family History Family Medical History: Noncontributory - Tobacco Use Smoking Status *Q: Never Smoker - Caffeine Use Caffeine Use: Reports: None - Recreational Drug Use Recreational Drug Use: No - Living Situation & Occupation Living situation: Reports: Single, , Extended Care Facility Occupation: Retired ED ROS GENERAL - Review of Systems Review Of Systems: ROS reveals no pertinent complaints other than HPI. ED EXAM, HEAD INJURY - Physical Exam Exam: See Below Exam Limited By: No Limitations General Appearance: Alert, WD/WN, No Apparent Distress Head: Normocephalic, Facial Lacerations (3.0 cm linear laceration within the lateral aspect of the right eyebrow. No associated swelling or ecchymosis.) Eyes: Bilateral Eye: EOMI, Normal Inspection Ears: Normal External Exam, Hearing Loss Nose: Normal Inspection Throat/Mouth: Normal Inspection, Normal Lips, Normal Voice, No Airway Compromise Neck: Non-Tender, Full Range of Motion ED LACERATION/WOUND & ERICK PROC - Laceration/Wound Repair Right Face Lac/wound length in cm: 3.0 Appearance: Subcutaneous, Linear, Clean Distal NVT: Neuro & Vascular Intact, No Tendon Injury Anesthetic Type: Topical (LET) Skin Prep: Providone-Iodine (Betadine) Exploration/Debridement/Repair: Wound Explored, In a Bloodless Field, Explored to Base, No Foreign Material Found, Wound Margins Revised Closed with: Sutures Suture Size: 4-0 # of Sutures: 6 Suture Type: Nylon (Prolene), Interrupted, Simple Sterile Dressing Applied: None Tetanus Status Addressed: Yes Complications: No Course - Vital Signs Last Recorded V/S: Last Vital Signs Temp 36.6 C 03/27/18 06:46 Pulse 67 03/27/18 06:46 Resp 16 03/27/18 06:46 BP 114/62 03/27/18 06:46 Pulse Ox 93 L 03/27/18 06:46 - Orders/Labs/Meds Meds: Medications Discontinued Medications Generic Name Dose Route Start Last Admin Trade Name Freq PRN Reason Stop Dose Admin Lidocaine/Tetracaine 1 ml 03/27/18 06:56 08/17/18 06:58 Let Soln TOP 03/27/18 06:57 1 ml ONETIME ONE Administration - Re-Assessments/Exams Free Text/Narrative Re-Assessment/Exam: 03/27/18 07:40 After application of topical LET, the patient's laceration was closed with 6 simple interrupted sutures, using 4-0 Prolene. The patient tolerated the procedure well. Departure - Departure Time of Disposition: 07:42 Disposition: Home, Self-Care 01 Condition: Good Clinical Impression: Facial laceration - Discharge Information *PRESCRIPTION DRUG MONITORING PROGRAM REVIEWED*: Not Applicable *COPY OF PRESCRIPTION DRUG MONITORING REPORT IN PATIENT GIRMA: Not Applicable Referrals: Rudy Montano MD [Primary Care Provider] - Additional Instructions: Mr. Agarwal was seen in the emergency room after falling and sustaining a cut to his right eyebrow. His wound was closed with 6 sutures. He should keep the wound clean with ordinary soap and water, then pat dry. We do not recommend that he apply antibiotic ointment. The sutures should be ready for removal by 04/03/2018. If any other problems, please do not hesitate to return Mr. Agarwal to the ER.
== END 2018-03-27 08:08 | disposition home or self-care (01) ==
LOC: JD.ED 06:41
DX: S01.111A Laceration without foreign body of right eyelid and periocular area, initial encounter (principal); I13.0 Hypertensive heart and chronic kidney disease with heart failure and stage 1 through stage 4 chronic kidney disease, or unspecified chronic kidney disease; I50.9 Heart failure, unspecified; N18.3 Chronic kidney disease, stage 3 (moderate); E11.22 Type 2 diabetes mellitus with diabetic chronic kidney disease; E03.9 Hypothyroidism, unspecified; Z79.01 Long term (current) use of anticoagulants; Z79.4 Long term (current) use of insulin; Z79.899 Other long term (current) drug therapy; W19.XXXA Unspecified fall, initial encounter; Y92.002 Bathroom of unspecified non-institutional (private) residence as the place of occurrence of the external cause; Z88.8 Allergy status to other drugs, medicaments and biological substances
CPT/HCPCS: 12013; 99283; A9270; 12011